=== PATIENT | female | born 1985 | race Caucasian/White ===

== ENCOUNTER 2019-08-31 11:47 | Outpatient (CLI) | payer OTHER, SELFPAY ==
[2019-08-31 12:37] LABS: Hematocrit 38.5 % (37.0-47.0); Hemoglobin 12.7 g/dL (12.0-15.0); Mean Corpuscular Hemoglobin 32.2 pg (26-34); Mean Corpuscular Volume 97.7 fl (80-100); Mean Platelet Volume 9.8 fl (7.4-10.4); Platelet Count Result 241 k/mm3 (150-375); Red Blood Count 3.94 M/mm3 (4.2-5.4); Red Cell Distribution Width 11.8 % (11.5-14.5); White Blood Count 6.7 K/mm3 (4.5-10.0)
[2019-08-31 12:48] LABS: Alanine Aminotransferase 12 U/L (4-35); Albumin Level 4.7 g/dL (3.5-5.1); Alkaline Phosphatase 59 U/L (38-126); Aspartate Amino Transferase 21 U/L (14-36); Bilirubin,Total 0.5 mg/dL (0.2-1.3); Blood Urea Nitrogen 10 mg/dL (7-17); Calcium 9.2 mg/dL (8.4-10.2); Carbon Dioxide 24 mmol/L (22-30); Chloride 106 mmol/L (98-107); Estimated Glomerular Filt Rate > 60; Glucose 85 mg/dL (65-105); Potassium 4.2 mmol/L (3.4-5.0); Sodium 139 mmol/L (137-145)
[2019-08-31 13:22] LABS: Thyroid Stimulating Hormone 0.617 uIU/mL (0.465-4.680); Total Triiodothyronine (T3) 1.59 NG/ML (0.97-1.69)
[2019-08-31 13:25] LABS: Free T4 Free Thyroxine 0.96 ng/mL (0.78-2.19)
== END 2019-08-31 11:48 | disposition home or self-care (01) ==
PROVIDERS: PCP Family Medicine Adolescent Medicine; Visit Provider Student in an Organized Health Care Education/Training Program
DX: R63.5 Abnormal weight gain (principal)
CPT/HCPCS: 36415; 80053; 84439; 84443; 84480; 85027

== ENCOUNTER → 2020-11-07 04:43 | Outpatient (CLI) | payer OTHER, SELFPAY ==
[2020-11-07 20:06] LABS: SARS-CoV-2 RNA PCR Negative
== END ==
PROVIDERS: PCP Family Medicine Adolescent Medicine; Visit Provider Student in an Organized Health Care Education/Training Program
DX: Z01.812 Encounter for preprocedural laboratory examination (principal); Z20.822 Contact with and (suspected) exposure to COVID-19
CPT/HCPCS: C9803; U0003; U0005

== ENCOUNTER 2020-11-10 02:19 | Day surgery (SDC) | payer OTHER, SELFPAY ==
[2020-10-30 16:01] VITALS: BMI 26.9
--- NOTE | 2020-11-09 08:55 | WPDANESEPPF ---
Anes - Initial Pre Proc Eval Procedure: Operation Date: 11/10/20 07:30 Proposed Procedures p Loop Electrical Excision Procedure - Joy Caba MD Date/Time: 11/09/20 08:55 Surgeon: Joy Caba MD Pre Op Diagnosis: high grade dyplasia Patient Data Age: 35 Gender: F Height: 1.8 m Weight: 87.7 kg Allergies Allergy/AdvReac Type Severity Reaction Status Date / Time Penicillins Allergy Severe swelling Verified 11/10/20 06:30 clindamycin Allergy Intermediate Swelling Verified 11/01/20 14:31 cefaclor Allergy Unknown Swelling Verified 11/01/20 14:31 cephalexin Allergy Unknown UNKNOWN Verified 11/01/20 14:31 tramadol AdvReac Severe Mirgraines Verified 11/01/20 14:31 Home Medications Medication Instructions Recorded Confirmed Type buspirone 15 mg PO BID 10/30/20 10/30/20 History Patient hx anesthesia problems: none Family hx anesthesia problems: none PMFSH Past Medical History Medical History (Updated 11/09/20 @ 16:21 by Joy Caba MD) Anxiety ROSEANN II (cervical intraepithelial neoplasia II) History of x2 Vaginal delivery x 2 Surgical History Surgical History H/O LEEP Social History Social History Smoking packs per day: 0.5 Smoking cigarettes per day: 10.0 Years smoked: 20 Smoking pack-years: 10.00 Smoking status: Current every day smoker Tobacco type: cigarettes Second hand tobacco smoke exposure: Yes Alcohol intake: current Drinks per week: 4 Substance use: current Substance use type: marijuana Living arrangements: with family Spiritual care concerns: No Anes - Eval Final PreProcedure Day of Procedure 11/09/20 08:55 Patient weight: overweight Heart: regular rate and rhythm Lungs: clear to auscultation and normal air movement Airway: Mallampati scale class II Neurological: alert and oriented Last oral intake: >/= 8 hours ASA classification: II Emergent: no Anesthetic plan: proceed Anesthesia type and monitoring: general GIVS Informed Consent: The patient's anesthetic plan and its attendant risks and benefits were discussed with the patient/family/POA. Questions were solicited and answers provided to the satisfaction of the patient/family/POA.
--- NOTE | 2020-11-09 16:13 | PM.IMHP ---
H&P: HPI History of Present Illness Date/Time: 11/09/20 16:13 The patient is a 35-year-old with an extensive history of abnormal Pap smears and colposcopic biopsies. Patient is status post a LEEP procedure in 2018. She has had persistently abnormal Pap smears since then most recently LGSIL. A colposcopy was performed showing ROSEANN 1 and ROSEANN 2 on biopsies. After lengthy discussion, decision was made to proceed with a re-excision via a loop electrosurgical excision procedure for further management of abnormal results. In general, patient reports feeling well today without complaints. Chief Complaint: ROSEANN 2 Review of Systems Review of Systems: All systems reviewed & are unremarkable except as noted in HPI and below Constitutional: Constitutional: Reports as per HPI, Reports no additional constitutional complaints, Denies chills, Denies fever(s), Denies headache(s) and Denies night sweats Eyes: Eyes: Reports as per HPI and Reports no additional eye complaints ENT: Reports system reviewed and no additional complaints, except as documented, Reports as per HPI, Reports Normal hearing present and Denies headache(s) Cardiovascular: Cardiovascular: Reports as per HPI, Reports no additional cardiovascular complaints, Denies chest pain and Denies dyspnea Respiratory: Respiratory: Reports as per HPI, Reports no additional respiratory complaints, Denies cough and Denies dyspnea Gastrointestinal: Gastrointestinal: Reports as per HPI, Reports no additional gastrointestinal complaints, Denies abdominal pain, Denies change in bowel habits, Denies change in stool character, Denies nausea and Denies vomiting Genitourinary: Genitourinary: Reports no additional female genitourinary complaints, Reports as per HPI, Denies abnormal vaginal bleeding, Denies genital lesions, Denies hot flashes, Denies dyspareunia, Denies pelvic pain, Denies sexual dysfunction, Denies urinary incontinence, Denies vaginal discharge, Denies vaginal dryness and Denies vaginal odor Musculoskeletal: Musculoskeletal: Reports no additional musculoskeletal complaints and Reports as per HPI Integumentary/Breasts: Skin/Breast: Reports system reviewed and no additional complaints, except as docu, Reports as per HPI, Denies breast pain and Denies nipple discharge Neurologic: Reports system reviewed and no additional complaints, except as documented, Reports as per HPI, Reports Normal hearing present and Denies headache(s) Psychiatric: Psychiatric: Reports no additional psychiatric complaints, Reports as per HPI, Denies anxiety and Denies depression Endocrine: Endocrine: Reports no additional endocrine complaints and Reports as per HPI Hematologic/Lymphatic: Hematologic/Lymphatic: Reports no additional hematologic/lymphatic complaints and Reports as per HPI Allergic/Immunologic: Allergic/Immunologic: Reports no additional allergic/immunologic complaints and Reports as per HPI [facility] Past Medical History Medical History (Updated 11/09/20 @ 16:21 by Joy Caba MD) Anxiety ROSEANN II (cervical intraepithelial neoplasia II) History of x2 Vaginal delivery x 2 Surgical History Surgical History H/O LEEP Social History Social History Smoking packs per day: 0.5 Smoking cigarettes per day: 10.0 Years smoked: 20 Smoking pack-years: 10.00 Smoking status: Current every day smoker Tobacco type: cigarettes Second hand tobacco smoke exposure: Yes Alcohol intake: current Drinks per week: 4 Substance use: current Substance use type: marijuana Spiritual care concerns: No Meds Home Medications and Allergies Home Medications Medication Instructions Recorded Confirmed Type buspirone 15 mg PO BID 10/30/20 10/30/20 History Allergies Allergy/AdvReac Type Severity Reaction Status Date / Time Penicillins Allergy Severe swelling Verified 10/21
[2020-11-10 07:12] VITALS: BP 130/83; PULSE 91; TEMP 36.6; O2SAT 98
[2020-11-10] MEDS: LACTATED RINGERS 1,000 ML 30 ML IV CONT (07:16)
[2020-11-10] MEDS: ACETAMINOPHEN 500 MG TABLET 1000 MG PO (07:17)
--- NOTE | 2020-11-10 07:19 | WPDHPUPDATE1 ---
History and Physical Update Update Date/Time: 11/10/20 07:19 History and Physical has been reviewed, including an updated exam of the patient. There are NO changes in the patient's condition. Risks, benefits, and alternatives have been discussed and questions answered. Patient agrees to proceed with procedure.
--- NOTE | 2020-11-10 07:21 | PM.PROC ---
Procedure Note - Detailed Date of procedure: 11/10/20 Pre-op diagnosis: high grade dyplasia Post-op diagnosis: same Procedure performed: Loop electrosurgical excision procedure Description of procedure: The patient was taken to the operating room where she self-transferred to the operating room table. She was placed in dorsal supine position. Anesthesia was administered and found to be adequate. The patient was repositioned in dorsal lithotomy position and prepped and draped in the usual sterile fashion. A red rubber catheter was used to drain the bladder of 5cc of concentrated urine. A coated bivalve speculum was inserted into the vagina and suction tubing was connected to the speculum. The cervix was well visualized. A paracervical block was performed with 1% lidocaine. 5 cc of lidocaine was administered on both sides for a total of 10 cc. Lugol's solution was applied across the entire surface of the cervix. A few minimal areas of non-uptake were noted scattered around the cervix. A medium-size loop was selected and connected to the electrical generator. This loop was used to make two passes across the cervix, The first pass was made to excise the inferior portion of the anterior surface of the cervix. The specimen was removed and set aside. A second pass was made to excise the superior portion of the anterior surface of the cervix and this specimen was also set aside. The specimen were tagged with a suture. An endocervical curettage was performed. Rollerball cautery was used to cauterize the entire excision site and margins of the excision bed. Excellent hemostasis was noted. The procedure was deemed complete. The vagina was dried and the speculum was removed. Specimen were prepared to be sent to pathology for analysis. The patient was cleansed and dried. She was taken out of the dorsal lithotomy position and awakened from anesthesia without difficulty. She was transported to the recovery room in stable condition. All sponge and instrument counts were correct at the end of the procedure. Anesthesia: MAC Surgeon: Joy Caba MD Estimated blood loss (mL): 5 IV fluids (mL): 500 Urine output (mL): 5 Drains: No Packing: No Pathology: yes (anterior portion of cervix (superior) tagged at 12:00, os at 6:00; anterior portion of cervix (inferior) tagged at 6:00, os at 12:00) Complications: No immediate complications Condition: stable Disposition: same day Findings: scattered areas of non-uptake noted around cervix circumferentially
[2020-11-10 07:59] VITALS: BP 111/71; PULSE 69; RESP 14; O2SAT 98
[2020-11-10 08:25] VITALS: BP 114/67; PULSE 70; RESP 14; O2SAT 100
[2020-11-10 08:50] VITALS: BP 128/77; PULSE 72; RESP 14
[2020-11-10] MEDS: oxyCODONE HCL (*CRX) 5 MG TAB IR PO (08:50)
[2020-11-10 09:10] VITALS: BP 132/83; PULSE 80; RESP 14
== END 2020-11-10 09:19 | disposition home or self-care (01) ==
PROVIDERS: PCP Family Medicine Adolescent Medicine; Visit Provider Student in an Organized Health Care Education/Training Program
PROC: 0UBC7ZZ Excision of Cervix, Via Natural or Artificial Opening (ICD-10-PCS; CPT 57522; principal; 2020-11-10 07:30)
DX: N72 Inflammatory disease of cervix uteri (principal); F41.9 Anxiety disorder, unspecified; F17.210 Nicotine dependence, cigarettes, uncomplicated
CPT/HCPCS: 57522; 88305; A9270; C9803; J1100; J1885; J2250; J2405; J2704; J3010; J7120; U0003; U0005

== ENCOUNTER 2020-11-22 21:42 | Emergency (ER) | payer OTHER, SELFPAY ==
[2020-11-22 21:44] VITALS: BP 120/89; PULSE 130; RESP 18; TEMP 36.6; O2SAT 99
--- NOTE | 2020-11-22 21:47 | PC.NURSE ---
Note during triage pt states felt lightheaded, states I'm gonna be sick , pt became diaphoretic, pale, and unresponsive. Pt snoring respirations, that ceased with opening airway. Pt remained in wheelchair and became alert enroute to room 10 and was responsive on arrival to Rm 10. Pt c/o hands and feet feeling numb . Encouraged pt to attempt to slow breathing. 2 IV's being established.
[2020-11-22 21:56] VITALS: BP 110/81; PULSE 120; RESP 17; O2SAT 100
[2020-11-22 22:00] VITALS: BP 115/86; PULSE 116; RESP 18; O2SAT 99
--- NOTE | 2020-11-22 22:15 | ECG_ITS ---
Measurements Intervals [place] Rate: 95 P: 57 OR: 163 QRS: 67 QRSD: 101 T: 52 QT: 356 QTc: 449 Interpretive Statements SINUS RHYTHM BASELINE ARTIFACT- I, II, III, AVR, AVF, V3-V6 NORMAL ECG Electronically Signed On 11-23-2020 6:02:15 CDT by Adolfo Mccoy D.O.
[2020-11-22] MEDS: SODIUM CHLORIDE 0.9% IV 1,000 ML 999 ML IV CONT (22:16)
[2020-11-22 22:21] LABS: Basophils Absolute Auto 0.1 K/mm3 (0.0-0.1); Basophils Percent Auto 0.6 % (0.2-1.2); Eosinophils Absolute Auto 0.1 K/mm3 (0-0.3); Hemoglobin 12.5 g/dL (12.0-15.0); Immature Granulocyte Absolute 0.05 K/mm3 (0.00-0.031); Immature Granulocyte Percent A 0.4 % (0-0.5); Lymphocytes Absolute Auto 5.28 K/mm3 (0.9-3.2); Lymphocytes Percent Auto 45.8 % (18.3-44.2); Mean Corpuscular HGB Conc 35.7 g/dl (32-36); Mean Platelet Volume 9.6 fl (7.4-10.4); Monocytes Absolute Auto 0.8 K/mm3 (0.1-0.6); Monocytes Percent Auto 7.2 % (2.6-8.5); Neutrophils Absolute Auto 5.2 K/mm3 (1.3-6.7); Platelet Count Result 251 k/mm3 (150-375); Red Blood Count 3.57 M/mm3 (4.2-5.4); White Blood Count 11.5 K/mm3 (4.5-10.0)
--- NOTE | 2020-11-22 22:26 | ED.FEMALEGU ---
HPI - Female Genitourinary General Chief complaint: Vaginal Bleeding Stated complaint: vag bleed Time Seen by Provider: 11/22/20 22:02 Source: patient and RN notes reviewed Mode of arrival: ambulatory Limitations: no limitations History of Present Illness HPI Narrative: This is a 35 year old female who presents for evaluation of heavy vaginal bleeding. She states she had a LEEP procedure performed with biopsies on 11/10/20. She has only been having mild spotting since her procedure. Approximately 2 hours ago she developed heavy vaginal bleeding with large clots. She has been trying to stop the bleeding with a tampon, but the heavy bleeding pushed the tampon out. She denies abdominal pain or cramping. She is lightheaded and dizzy. Nursing staff states patient passed out in triage. Patient denies chest pain or sob. Related Data Home Medications Medication Instructions Recorded Confirmed buspirone 15 mg PO BID 10/30/20 10/30/20 Allergies Allergy/AdvReac Type Severity Reaction Status Date / Time Penicillins Allergy Severe swelling Verified 11/10/20 06:30 clindamycin Allergy Intermediate Swelling Verified 11/01/20 14:31 cefaclor Allergy Unknown Swelling Verified 11/01/20 14:31 cephalexin Allergy Unknown UNKNOWN Verified 11/01/20 14:31 tramadol AdvReac Severe Mirgraines Verified 11/01/20 14:31 Review of Systems Review of Systems: All systems reviewed & are unremarkable except as noted in HPI and below PMFSH Past Medical History Medical History (Updated 11/23/20 @ 01:07 by Lisa Gardner MD) Anxiety ROSEANN II (cervical intraepithelial neoplasia II) History of x2 Vaginal delivery x 2 Surgical History Surgical History H/O LEEP Social History Social History Smoking packs per day: 0.5 Smoking cigarettes per day: 10.0 Years smoked: 20 Smoking pack-years: 10.00 Smoking status: Current every day smoker Tobacco type: cigarettes Second hand tobacco smoke exposure: Yes Alcohol intake: current Drinks per week: 4 Substance use: current Substance use type: marijuana Gender identity (if verbalized by the patient): Female Spiritual care concerns: No Exam Const: General: no acute distress and alert Orientation/consciousness: patient oriented x3 HENMT: Head: normocephalic and atraumatic Face and sinus: face symmetric Throat: posterior oropharynx normal, tonsils normal and uvula midline Eyes: Pupils: Equal, round and reactive pupils present EOM: EOMs intact bilaterally Resp: Effort & Inspection: normal respiratory effort and no retractions Auscultation: clear to auscultation bilaterally Cardio: Rate: tachycardic Rhythm: regular rhythm Heart sounds: no murmurs GI: GI Palp: Yes Soft to palpation, No Tenderness to palpation present (GI) and No Guarding due to palpation present (GI) Auscultation: normal bowel sounds : Speculum Exam - Cervix: Cervical os closed Other: large amount of clots in vagina, once I cleared clots, no active bleeding noted Skin: General skin exam: normal color Rashes: no rashes Neuro: General: patient oriented x3, moves all extremities, no meningeal signs and CN's II-XI intact bilaterally Extrem: General: normal to inspection Psych: Mental Status: mental status grossly normal Course Reevaluation(s) Reevaluation #1: On repeat exam patient in no longer having vaginal bleeding. She will be sent home to follow up with Dr. laboy today. Date: 11/23/20 Time: 01:03 Consultations Consultation #1: I discussed case with DR. Laboy. Patient had large amount of clots but no active bleeding noted once removal of clot. She states patient is reliable and she will follow up in clinic tomorrow. Date: 11/23/20 Time: 23:27 Vital Signs Vital signs: Vital Signs Temperature 97.8 F 11/22/20 21:44 Pulse Rate 130 H 11/22/20 21:44 Respirat
[2020-11-22 22:31] LABS: Alanine Aminotransferase 33 U/L (4-35); Albumin Level 4.2 g/dL (3.5-5.1); Alkaline Phosphatase 60 U/L (38-126); Anion Gap 15 mmol/L (8-16); Aspartate Amino Transferase 60 U/L (14-36); Bilirubin,Total 0.4 mg/dL (0.2-1.3); Blood Urea Nitrogen 11 mg/dL (7-17); Calcium 9.1 mg/dL (8.4-10.2); Carbon Dioxide 17 mmol/L (22-30); Chloride 110 mmol/L (98-107); Estimated CRCL calculation 100 ml/min; Estimated Glomerular Filt Rate > 60; Glucose 114 mg/dL (65-105); Potassium 3.3 mmol/L (3.4-5.0); Sodium 142 mmol/L (137-145)
[2020-11-22 22:48] LABS: Beta HCG Quantitative < 2.39 mIU/ML
[2020-11-22 22:49] LABS: Prothrombin Time 13.9 Seconds (11.1-14.7)
[2020-11-22 22:50] LABS: Partial Thromboplastin Time 22.9 SECONDS (22.3-36.8)
[2020-11-22 23:16] LABS: Alveolar/Arterial O2 Gradient 17.7 mmHg; Base Excess ABG -4.2 mEq/l (+/-2.0); Carboxyhemoglobin 1.2 % THb (0-2.0); Device ROOM AIR; Fractional Inspired Oxygen 21 %; HCO3 ABG 19.4 mEq/l (22.0-26.0); Methemoglobin ABG 0.2 %THb (0-1.5); Modified Allen's Test Pass; Oxygen Content ABG 15.9 %vol (16.0-22.0); Oxygen Saturation ABG 97.5 % (95.0-100.0); PCO2 ABG 30.8 mmHg (35.0-45.0); PO2 ABG 95.1 mmHg (80.0-100.0); PO2 FiO2 Ratio Arterial Blood 4.53 %; Reduced Hemoglobin 3.6 %THb (0-5.0); Site Drawn RIGHT BRACHIAL; Total Hemoglobin 11.8 g/dL (12.0-18.0); pH ABG 7.417 (7.350-7.450)
[2020-11-22 23:29] VITALS: BP 133/85; PULSE 107
[2020-11-22 23:30] VITALS: BP 119/87; BP 129/92; PULSE 115; PULSE 130
[2020-11-22 23:39] LABS: Lactic Acid Reflex 3.2 mmol/L (0.7-2.1)
[2020-11-23] VITALS: BP 124/96; PULSE 95; RESP 17; O2SAT 100
[2020-11-23] MEDS: SODIUM CHLORIDE 0.9% IV 1,000 ML 999 ML IV CONT (00:25)
[2020-11-23 01:00] VITALS: BP 136/82; PULSE 95; RESP 18; O2SAT 99
[2020-11-23 02:24] LABS: Reflex Lactic Acid Yes or No Add Lactic
== END 2020-11-23 01:26 | disposition home or self-care (01) ==
PROVIDERS: Emergency Provider General Practice; PCP Family Medicine Adolescent Medicine
DX: N93.9 Abnormal uterine and vaginal bleeding, unspecified (principal); F41.9 Anxiety disorder, unspecified; N87.1 Moderate cervical dysplasia; F17.210 Nicotine dependence, cigarettes, uncomplicated
CPT/HCPCS: 36415; 36600; 80053; 82375; 82805; 83050; 83605; 84702; 85025; 85610; 85730; 93005; 96360; 96361; 99284; J7030

== ENCOUNTER 2021-01-06 14:23 | Emergency (ER) | payer OTHER, SELFPAY ==
[2021-01-06] VITALS (7 sets, daily range): BP systolic 110–158; BP diastolic 88–112; PULSE 88–135; RESP 14–20; TEMP 37; O2SAT 97–100
--- NOTE | 2021-01-06 14:54 | ED.NAVMDI ---
HPI - Nausea/Vomiting/Diarrhea General Chief complaint: Nausea/Vomiting/Diarrhea Stated complaint: dehydrated Time Seen by Provider: 01/06/21 14:34 Source: patient and RN notes reviewed Mode of arrival: ambulatory Limitations: no limitations History of Present Illness HPI Narrative: This is a 35 year old female with history of alcohol abuse who presents for evaluation nausea, vomiting and diarrhea. Patient reports she normally drinks 1 fifth of whiskey per day and she normally doesn't drink anything else. She developed nausea and vomiting 2 days ago, and she reports having diarrhea today. She reports nonbloody emesis, but she reports she sees bright red blood in toilet. This has been occurring for weeks, and she reports history of hemorrhoids. She has intermittent lower abdominal cramping. She went to [facility] for evaluation of dehydration and she was referred to [place] ED. She denies fever or chills. Her LMP was yesterday. She last drank alcohol yesterday. She reports alcohol symptoms such as increase anxiety, shakiness. Denies headache or hallucinations. Related Data Home Medications Medication Instructions Recorded Confirmed buspirone 15 mg PO BID 10/30/20 01/06/21 etonogestrel 0.12 mg-ethinyl 1 vag ring VAGINAL ONCE 12/12/20 01/06/21 estradiol 0.015 mg/24 hr vaginal ring Allergies Allergy/AdvReac Type Severity Reaction Status Date / Time Penicillins Allergy Severe swelling Verified 01/06/21 14:29 clindamycin Allergy Intermediate Swelling Verified 01/06/21 14:29 cefaclor Allergy Unknown Swelling Verified 01/06/21 14:29 cephalexin Allergy Unknown UNKNOWN Verified 01/06/21 14:29 tramadol AdvReac Severe Mirgraines Verified 01/06/21 14:29 Review of Systems Review of Systems: All systems reviewed & are unremarkable except as noted in HPI and below PMFSH Past Medical History Medical History Anxiety ROSEANN II (cervical intraepithelial neoplasia II) History of x2 Vaginal delivery x 2 Surgical History Surgical History H/O LEEP Social History Social History Smoking packs per day: 0.5 Smoking cigarettes per day: 10.0 Years smoked: 20 Smoking pack-years: 10.00 Smoking status: Current every day smoker Tobacco type: cigarettes Second hand tobacco smoke exposure: Yes Alcohol intake: current Drinks per week: 4 Substance use: current Substance use type: marijuana Gender identity (if verbalized by the patient): Female Spiritual care concerns: No Exam Const: General: no acute distress and alert Orientation/consciousness: patient oriented x3 Eyes: EOM: EOMs intact bilaterally Resp: Effort & Inspection: normal respiratory effort and no retractions Auscultation: clear to auscultation bilaterally Cardio: Rate: tachycardic Rhythm: regular rhythm Heart sounds: no murmurs GI: GI Palp: Yes Soft to palpation, Yes Tenderness to palpation present (GI) (LLQ) and No Guarding due to palpation present (GI) Auscultation: normal bowel sounds : Speculum Exam - Cervix: normal appearance of the cervix and Cervical os closed Other: nuvaring in place, mucous discharge, no CMT Back/Spine/Pelvis: Back: no CVA tenderness Skin: General skin exam: normal color Rashes: no rashes Psych: Affect: Anxious affect present Course Reevaluation(s) Reevaluation #1: PAtient states she feels much better. She has minimal withdrawal symptoms. she has been able to tolerate PO. I discussed discharge treatment and she will be given resource for alcohol treatment. she will also be given antibiotics for UTI. Date: 01/06/21 Time: 18:12 Vital Signs Vital signs: Vital Signs Temperature 98.6 F 01/06/21 14:26 Pulse Rate 115 H 01/06/21 14:26 Respiratory Rate 16 01/06/21 14:26 Blood Pressure 158/112 H 01/06/21 14
[2021-01-06] MEDS: SODIUM CHLORIDE 0.9% IV 1,000 ML 999 ML IV CONT ×2 (14:58→16:46)
[2021-01-06 14:59] LABS: Basophils Percent Auto 0.5 % (0.2-1.2); Eosinophils Absolute Auto 0.1 K/mm3 (0-0.3); Eosinophils Percent Auto 0.9 % (0-4.4); Hematocrit 38.1 % (37.0-47.0); Hemoglobin 12.4 g/dL (12.0-15.0); Immature Granulocyte Absolute 0.03 K/mm3 (0.00-0.031); Immature Granulocyte Percent A 0.4 % (0-0.5); Lymphocytes Absolute Auto 1.05 K/mm3 (0.9-3.2); Lymphocytes Percent Auto 13.1 % (18.3-44.2); Mean Corpuscular HGB Conc 32.5 g/dl (32-36); Mean Corpuscular Hemoglobin 31.9 pg (26-34); Mean Corpuscular Volume 97.9 fl (80-100); Mean Platelet Volume 9.7 fl (7.4-10.4); Monocytes Absolute Auto 0.4 K/mm3 (0.1-0.6); Monocytes Percent Auto 5.5 % (2.6-8.5); Neutrophils Absolute Auto 6.4 K/mm3 (1.3-6.7); Neutrophils Percent Auto 79.6 % (45.5-73.1); Platelet Count Result 189 k/mm3 (150-375); Red Blood Count 3.89 M/mm3 (4.2-5.4); Red Cell Distribution Width 14.3 % (11.5-14.5)
[2021-01-06] MEDS: ONDANSETRON INJ 4 MG/2 ML VIAL IV PUSH (14:59)
--- NOTE | 2021-01-06 15:03 | PC.NURSE ---
Called lab and added-on an MG
--- NOTE | 2021-01-06 15:04 | ECG_ITS ---
Measurements Intervals [place] Rate: 87 P: 37 DC: 178 QRS: 55 QRSD: 106 T: 40 QT: 351 QTc: 423 Interpretive Statements SINUS RHYTHM ATRIAL AND VENTRICULAR PREMATURE COMPLEXES INCOMPLETE RIGHT BUNDLE BRANCH BLOCK BASELINE WANDER- II, III BORDERLINE ECG Electronically Signed On 01-06-2021 16:05:23 CDT by Adolfo Mccoy D.O.
[2021-01-06 15:12] LABS: Add Urine Microscopic? YES; Appearance Urine Cloudy (Clear); Bilirubin Urine Negative (Negative); Blood Urine 2+ (Negative); Color Urine Amber (Yellow); Glucose Urine UA Negative (Negative); Ketones Urine Negative (Negative); Leukocyte Esterase Ur 2+ LEU/UL (Negative); Mucus Urine Heavy /lpf; Nitrate Urine Negative (Negative); Protein Urine 2+ mg/dL (Negative); Specific Grav Ur 1.024 (1.001-1.035); Squamous Epithelial Cell Urine Many /hpf (Few); Urobilinogen Urine Negative mg/dL (<2.0); WBC Urine >75 /hpf
[2021-01-06 15:16] LABS: Alanine Aminotransferase 52 U/L (4-35); Albumin Level 4.9 g/dL (3.5-5.1); Alkaline Phosphatase 70 U/L (38-126); Anion Gap 15 mmol/L (8-16); Aspartate Amino Transferase 126 U/L (14-36); Bilirubin,Total 0.8 mg/dL (0.2-1.3); Blood Urea Nitrogen 10 mg/dL (7-17); Calcium 9.4 mg/dL (8.4-10.2); Carbon Dioxide 21 mmol/L (22-30); Chloride 105 mmol/L (98-107); Estimated CRCL calculation 87 ml/min; Estimated Glomerular Filt Rate > 60; Glucose 122 mg/dL (65-110); Lipase 114 U/L (23-300); Magnesium 1.7 mg/dL (1.6-2.3); Potassium 3.7 mmol/L (3.4-5.0); Sodium 141 mmol/L (137-145)
[2021-01-06] MEDS: LORazepam INJ (*CRX) 2 MG/ML VIAL IV PUSH (15:24)
[2021-01-06] MEDS: THIAMINE HCL INJ 100 MG, FOLIC ACID INJ 1 MG, MULTIVITAMINS-12 INJ VIAL 1 5 ML, MULTIVI... IV CONT (15:37)
== END 2021-01-06 18:35 | disposition home or self-care (01) ==
PROVIDERS: Emergency Medicine; Emergency Provider General Practice; PCP Family Medicine Adolescent Medicine
DX: F10.139 Alcohol abuse with withdrawal, unspecified (principal); N39.0 Urinary tract infection, site not specified; E86.0 Dehydration; R11.2 Nausea with vomiting, unspecified; F41.9 Anxiety disorder, unspecified; N87.1 Moderate cervical dysplasia; F17.210 Nicotine dependence, cigarettes, uncomplicated; I49.1 Atrial premature depolarization; I49.3 Ventricular premature depolarization; I45.10 Unspecified right bundle-branch block; Y90.9 Presence of alcohol in blood, level not specified
CPT/HCPCS: 36415; 80053; 81001; 81025; 83690; 83735; 85025; 87070; 87077; 87086; 87088; 87186; 87491; 87591; 87808; 93005; 96361; 96365; 96366; 96375; 99284; J2060; J2405; J3411; J3475; J7030; J7042

== ENCOUNTER → 2021-01-12 06:59 | Outpatient (CLI) | payer OTHER, SELFPAY ==
[2021-01-12 17:52] LABS: SARS-CoV-2 RNA PCR Negative
== END ==
PROVIDERS: PCP Family Medicine Adolescent Medicine; Visit Provider Family Medicine Adolescent Medicine
DX: R05 Cough (principal); R09.81 Nasal congestion; Z20.822 Contact with and (suspected) exposure to COVID-19
CPT/HCPCS: C9803; U0003; U0005

== ENCOUNTER → 2021-01-19 09:04 | Outpatient (CLI) | payer OTHER, SELFPAY ==
[2021-01-19 18:53] LABS: SARS-CoV-2 RNA PCR Negative
== END ==
PROVIDERS: PCP Family Medicine Adolescent Medicine; Visit Provider Family Medicine Adolescent Medicine
DX: Z20.822 Contact with and (suspected) exposure to COVID-19 (principal)
CPT/HCPCS: C9803; U0003; U0005

== ENCOUNTER 2021-04-23 22:31 | Emergency (ER) | payer OTHER, SELFPAY ==
--- NOTE | ~2021-04-23 | XR_ITS ---
XR chest 2V DATE: 04/23/2021 22:56 INDICATION: Sternal chest pain for 4 hours. TECHNIQUE: PA and lateral views COMPARISON: 10/24/2010 PA chest FINDINGS: Normal heart size. No hilar or mediastinal enlargement. No pulmonary infiltrate or consolid ation, pleural effusion or pulmonary vascular congestion or pneumothorax. IMPRESSION: No active cardiopulmonary disease Reviewed, dictated and finalized at location A.
--- NOTE | ~2021-04-23 | CT_ITS ---
EXAMINATION: CTA chest PE protocol DATE: 04/24/2021 00:47 INDICATION: Elevated d-dimer. Tachycardia. TECHNIQUE: Computed tomography (CT) pulmonary angiogram of the chest was performed with 100 mL Omnipa que-350 intravenous contrast. Additional 3D reconstructions utilizing coronal maximum intensity proje ction (MIP) were performed. Automated exposure control and iterative reconstruction technique were em ployed. The dose-length product was 421.96 mGy-cm. COMPARISON: None FINDINGS: Good contrast opacification of the pulmonary arteries. There is mild streak artifact from dense contr ast in the superior vena cava and right atrium. Mild scattered respiratory motion artifact which does not significantly limit evaluation. No pulmonary embolism. Mosaic attenuation in the dependent aspec t of the lower lobes with groundglass opacities related to atelectasis with more lucent regions of campbell bsegmental air trapping consistent with small airway disease. Calcified right lower lobe nodule consi stent with old granulomatous disease. Groundglass opacities at the inferior tip of the lingula. No pl eural effusion. Heart size is normal. No pericardial effusion. Thoracic aorta is normal in caliber wi th no dissection. No pathologically enlarged thoracic lymphadenopathy. Mild diffuse hepatic steatosis with more focal steatosis at the ligamentum teres. Adjacent 6 mm low-attenuation hepatic lesion whic h could represent hemangioma, cyst or additional focal fat. Splenomegaly measuring at least 15 cm in maximal length. Bones are unremarkable. IMPRESSION: 1. No pulmonary embolism. 2. Small region of groundglass opacity in the inferior tip of the lingula. Differential would include atelectasis, very small pulmonary infarct or pneumonia. 3. Small regions of subsegmental air trapping in the dependent lower lobes consistent with small airw ay disease. 4. Nonspecific splenomegaly. Reviewed, dictated and finalized at location A. IMPRESSION: 1. No pulmonary embolism. 2. Small region of groundglass opacity in the inferior tip of the lingula. Diff erential would include atelectasis, very small pulmonary infarct or pneumonia. 3. Small regions of subsegmental air trapping in the dependent lower lobes cons istent with small airway disease. 4. Nonspecific splenomegaly.
--- NOTE | 2021-04-23 22:33 | ECG_ITS ---
Measurements Intervals [place] Rate: 116 P: MA: 0 QRS: 47 QRSD: 90 T: 37 QT: 319 QTc: 444 Interpretive Statements SINUS TACHYCARDIA INCOMPLETE RIGHT BUNDLE BRANCH BLOCK ABNORMAL ECG Electronically Signed On 04-24-2021 6:14:35 CDT by Adolfo Mccoy D.O.
[2021-04-23 22:37] VITALS: BP 145/99; PULSE 114; RESP 18; TEMP 36.6; O2SAT 98
--- NOTE | 2021-04-23 23:05 | PC.NURSE ---
Called lab and spoke to Dee to add on D-Dimer, MG, Lip, CMP
[2021-04-23 23:12] LABS: Basophils Absolute Auto 0.1 K/mm3 (0.0-0.1); Basophils Percent Auto 0.5 % (0.2-1.2); Eosinophils Percent Auto 0.3 % (0-4.4); Hematocrit 30.8 % (37.0-47.0); Immature Granulocyte Absolute 0.03 K/mm3 (0.00-0.031); Immature Granulocyte Percent A 0.3 % (0-0.5); Lymphocytes Absolute Auto 6.79 K/mm3 (0.9-3.2); Lymphocytes Percent Auto 70.1 % (18.3-44.2); Mean Corpuscular HGB Conc 32.5 g/dl (32-36); Mean Corpuscular Hemoglobin 31.2 pg (26-34); Mean Platelet Volume 8.7 fl (7.4-10.4); Monocytes Absolute Auto 0.6 K/mm3 (0.1-0.6); Monocytes Percent Auto 5.9 % (2.6-8.5); Neutrophils Absolute Auto 2.2 K/mm3 (1.3-6.7); Neutrophils Percent Auto 22.9 % (45.5-73.1); Platelet Count Result 218 k/mm3 (150-375); Red Blood Count 3.21 M/mm3 (4.2-5.4); Red Cell Distribution Width 21.7 % (11.5-14.5); White Blood Count 9.7 K/mm3 (4.5-10.0)
[2021-04-23 23:21] LABS: INR 0.9; Prothrombin Time 12.4 Seconds (11.1-14.7)
[2021-04-23 23:22] LABS: Partial Thromboplastin Time 29.1 SECONDS (22.3-36.8)
[2021-04-23 23:24] LABS: D Dimer 2.86 ug/mL (<0.48)
[2021-04-23 23:26] LABS: Alanine Aminotransferase 81 U/L (4-35); Albumin Level 3.6 g/dL (3.5-5.1); Alkaline Phosphatase 85 U/L (38-126); Anion Gap 10 mmol/L (8-16); Aspartate Amino Transferase 134 U/L (14-36); Bilirubin,Total 0.4 mg/dL (0.2-1.3); Blood Urea Nitrogen 9 mg/dL (7-17); Calcium 8.6 mg/dL (8.4-10.2); Carbon Dioxide 32 mmol/L (22-30); Chloride 100 mmol/L (98-107); Estimated CRCL calculation 131 ml/min; Estimated Glomerular Filt Rate > 60; Glucose 97 mg/dL (65-110); Lipase 175 U/L (23-300); Magnesium 1.7 mg/dL (1.6-2.3); Potassium 3.6 mmol/L (3.4-5.0); Sodium 142 mmol/L (137-145)
[2021-04-23] MEDS: FAMOTIDINE 20 MG/2 ML VIAL IV PUSH (23:30)
[2021-04-23] MEDS: SODIUM CHLORIDE 0.9% IV 1,000 ML 999 ML IV CONT (23:32)
--- NOTE | 2021-04-23 23:36 | PC.NURSE ---
Called lab and spoke to Heather to add on TSH Reflex
[2021-04-23 23:37] LABS: Troponin I < 0.012 ng/mL (0.000-0.034)
--- NOTE | 2021-04-24 00:15 | ED.CHESTPAIN ---
HPI - Chest Pain General Chief Complaint: Chest Pain Stated Complaint: chest pain x 4 hrs Time Seen by Provider: 04/23/21 22:57 Source: patient Mode of arrival: ambulatory History of Present Illness HPI narrative: 35-year-old female with history of panic attacks complaining of chest pain for the last 4 hours. Chest pain is located across the chest, described as a tightness. No wheezing, no productive cough, no pleuritic pain. Pain worse with exertion, improves with nothing. No previous history of same. No leg swelling, no unilateral calf swelling, no recent surgeries, no recent travel. Patient states chest pain starts anterior and radiates towards the back constant, sharp. On arrival patient is afebrile and tachycardic. Related Data Home Medications Medication Instructions Recorded Confirmed buspirone 15 mg PO BID 10/30/20 01/06/21 etonogestrel 0.12 mg-ethinyl 1 vag ring VAGINAL ONCE 12/12/20 01/06/21 estradiol 0.015 mg/24 hr vaginal ring Allergies Allergy/AdvReac Type Severity Reaction Status Date / Time Penicillins Allergy Severe swelling Verified 04/23/21 23:12 clindamycin Allergy Intermediate Swelling Verified 04/23/21 23:12 cefaclor Allergy Unknown Swelling Verified 04/23/21 23:12 cephalexin Allergy Unknown UNKNOWN Verified 04/23/21 23:12 tramadol AdvReac Severe Mirgraines Verified 04/23/21 23:12 Review of Systems Review of Systems: CONSTITUTIONAL: no fever, no weight loss, no confusion EYES: no vision changes, no eye pain ENT: no rhinorrhea, no sore throat, no difficulty swallowing CARDIOVASCULAR: positive for chest pain, no leg edema, positive for palpitations RESPIRATORY: no cough, positive for shortness of breath, no hemoptysis GASTROINTESTINAL: no abdominal pain, positive for nausea, no vomiting, no diarrhea GENITOURINARY: no flank pain, no dysuria, no hematuria SKIN: no rash, no jaundice MUSCULOSKELETAL: no back pain, no trauma. NEUROLOGIC: No headache, no dizziness, no focal weakness PSYCHIATRIC: No hallucinations, no suicidal ideation [facility] Past Medical History Medical History (Updated 04/25/21 @ 00:00 by Jean Carlos Gilbert) Anxiety ROSEANN II (cervical intraepithelial neoplasia II) History of x2 Vaginal delivery x 2 Surgical History Surgical History H/O LEEP Social History Social History Smoking packs per day: 0.5 Smoking cigarettes per day: 10.0 Years smoked: 20 Smoking pack-years: 10.00 Smoking status: Current every day smoker Tobacco type: cigarettes Second hand tobacco smoke exposure: Yes Alcohol intake: current Drinks per week: 4 Substance use: current Substance use type: marijuana Gender identity (if verbalized by the patient): Female Spiritual care concerns: No Exam Narrative: General: alert, afebrile, answering all questions appropriately Head: normocephalic, atraumatic Eyes: EOMI bilaterally, anicteric, no injection ENT: moist mucous membranes, oropharynx patent, no rhinorrhea Neck: supple, trachea midline, no JVD Chest: equal chest rise bilaterally, no chest wall trauma noted Lungs: clear to auscultation bilaterally, respirations unlabored CV: tachycadia, regular, no KHAI B, calf size equal bilaterally Abd: soft, non-distended, non-tender, no rebound, no gaurding, negative Fitzgerald's : no CVA tenderness B, bladder non-distended EXT: no deformity noted, moving all extremities equally Skin: warm, dry, no pallor Neuro: alert, oriented x 3; CN 2-12 grossly intact, no dysarthria Psych: affect appropriate, though content normal Course Vital Signs Vital signs: Vital Signs Temperature 36.6 C 04/23/21 22:37 Pulse Rate 114 H 04/23/21 22:37 Respiratory Rate 18 04/23/21 22:37 Blood Pressure 145/99 H 04/23/21 22:37 Pulse Oximetry 98 04/23/21 22:37 Temperature 36.6 C 04/23/21 22:37 Pulse Rate 94
[2021-04-24] MEDS: diazePAM INJ (*CRX) 10 MG/2 ML SYRINGE IV PUSH ×2 (01:51→02:25)
[2021-04-24 02:30] VITALS: BP 130/91; PULSE 94; RESP 20; O2SAT 98
== END 2021-04-24 02:40 | disposition home or self-care (01) ==
PROVIDERS: Emergency Provider Emergency Medicine; PCP Family Medicine Adolescent Medicine
DX: J84.9 Interstitial pulmonary disease, unspecified (principal); F41.9 Anxiety disorder, unspecified; R00.0 Tachycardia, unspecified; F10.230 Alcohol dependence with withdrawal, uncomplicated; F17.210 Nicotine dependence, cigarettes, uncomplicated; N87.1 Moderate cervical dysplasia; R16.1 Splenomegaly, not elsewhere classified; Y90.9 Presence of alcohol in blood, level not specified
CPT/HCPCS: 36415; 71046; 71275; 80053; 81025; 83690; 83735; 84443; 84484; 85025; 85380; 85610; 85730; 93005; 96361; 96374; 96376; 99284; J3360; J7030; Q9967

== ENCOUNTER 2021-05-03 15:26 | Emergency (ER) | payer OTHER, SELFPAY ==
--- NOTE | ~2021-05-03 | CT_ITS ---
EXAMINATION: CTA chest PE protocol EXAM DATE: 05/03/2021 19:39 INDICATION: Elevated dimer and tachycardia. TECHNIQUE: Spiral CTA of the chest (pulmonary arteries) was performed with 100 cc Omnipaque 350 intr avenous contrast injection. Images were acquired during the pulmonary arterial phase. Coronal maxi mum intensity projection 3D-reconstructions were created by the technologist on dedicated workstation . Axial, coronal and sagittal reformatted images were reviewed. The dose-length product (DLP) for t his examination was 350.24 mGy-cm. The exposure was tailored according to patient size (auto mA exp osure control), and iterative reconstruction (ASIR) was used as additional dose reduction technique. 04/24/2021 FINDINGS: Pulmonary arteries are well opacified and without intraluminal filling defects. No thora cic aortic dissection. More confluence to small amount of lingular atelectasis or pneumonia. Right l ower lobe granuloma. There are no pleural or pericardial effusions. Tracheobronchial tree is paten t. There is no mediastinal, hilar or axillary lymphadenopathy. There is no pneumothorax. Heart normal in size. No evidence of coronary arterial calcification. Upper abdomen is unremarkable. T here is thoracic spondylosis without osteoblastic or osteolytic lesions identified. IMPRESSION: 1. No pulmonary emboli. 2. Small amount of lingular atelectasis or pneumonia. Reviewed, dictated and finalized at location A. CH LANGUAGE PATHOLOGIST PRN
--- NOTE | ~2021-05-03 | XR_ITS ---
EXAMINATION: XR chest 1V EXAM DATE: 05/03/2021 15:55 INDICATION: Fatigue and shortness of breath. History of pneumonia one week ago. TECHNIQUE: Frontal and lateral projections of the chest obtained and reviewed. Comparison is made to prior examination from 04/23/2021. FINDINGS: Small amount of left basilar subsegmental atelectasis. The lungs are otherwise clear. Ther e are no pleural effusions. The cardiomediastinal silhouette is within normal limits. There is no p neumothorax suspected. The bones and soft tissues are unremarkable. IMPRESSION: Small amount of left basilar subsegmental atelectasis. Reviewed, dictated and finalized at location A. NOLOGY METHODOLOGY CONSULTANT
[2021-05-03 15:35] VITALS: BP 148/111; PULSE 121; RESP 20; TEMP 35.9; O2SAT 100
--- NOTE | 2021-05-03 16:07 | ECG_ITS ---
Measurements Intervals [place] Rate: 115 P: 54 [place]: 169 QRS: 55 QRSD: 99 T: 43 QT: 326 QTc: 452 Interpretive Statements SINUS TACHYCARDIA BORDERLINE R WAVE PROGRESSION, ANTERIOR LEADS MINIMAL Q WAVES- ANTEROLAT/INF LEADS ABNORMAL ECG Electronically Signed On 05-03-2021 19:49:02 STAMP MOUNTER by Adolfo Mccoy D.O.
[2021-05-03 17:01] LABS: Basophils Absolute Auto 0.1 K/mm3 (0.0-0.1); Basophils Percent Auto 0.5 % (0.2-1.2); Eosinophils Absolute Auto 0.2 K/mm3 (0-0.3); Eosinophils Percent Auto 1.7 % (0-4.4); Hematocrit 34.1 % (37.0-47.0); Hemoglobin 10.9 g/dL (12.0-15.0); Immature Granulocyte Absolute 0.05 K/mm3 (0.00-0.031); Immature Granulocyte Percent A 0.5 % (0-0.5); Lymphocytes Absolute Auto 3.71 K/mm3 (0.9-3.2); Lymphocytes Percent Auto 38.8 % (18.3-44.2); Mean Corpuscular Volume 93.9 fl (80-100); Mean Platelet Volume 8.7 fl (7.4-10.4); Monocytes Absolute Auto 0.7 K/mm3 (0.1-0.6); Monocytes Percent Auto 6.8 % (2.6-8.5); Neutrophils Percent Auto 51.7 % (45.5-73.1); Platelet Count Result 268 k/mm3 (150-375); Red Blood Count 3.63 M/mm3 (4.2-5.4); White Blood Count 9.6 K/mm3 (4.5-10.0)
[2021-05-03 17:14] LABS: Alanine Aminotransferase 35 U/L (4-35); Albumin Level 4.2 g/dL (3.5-5.1); Alkaline Phosphatase 92 U/L (38-126); Anion Gap 6 mmol/L (8-16); Aspartate Amino Transferase 60 U/L (14-36); Bilirubin,Total 0.6 mg/dL (0.2-1.3); Blood Urea Nitrogen 7 mg/dL (7-17); Calcium 9.7 mg/dL (8.4-10.2); Carbon Dioxide 29 mmol/L (22-30); Chloride 106 mmol/L (98-107); Estimated CRCL calculation 110 ml/min; Estimated Glomerular Filt Rate > 60; Glucose 94 mg/dL (65-110); Potassium 3.9 mmol/L (3.4-5.0); Sodium 141 mmol/L (137-145)
[2021-05-03 17:15] LABS: D Dimer 1.86 ug/mL (<0.48)
[2021-05-03 17:21] LABS: NT Pro B Type Natriuretic Pept 95 pg/mL (5-100)
[2021-05-03 18:25] LABS: INR 0.9; Prothrombin Time 12.2 Seconds (11.1-14.7)
[2021-05-03 18:26] LABS: Partial Thromboplastin Time 31.5 SECONDS (22.3-36.8)
[2021-05-03 18:48] LABS: Add Urine Microscopic? YES; Appearance Urine Cloudy (Clear); Bacteria Urine Trace /hpf; Bilirubin Urine Negative (Negative); Blood Urine Negative (Negative); Color Urine Yellow (Yellow); Glucose Urine UA Negative (Negative); Ketones Urine Negative (Negative); Leukocyte Esterase Ur Trace LEU/UL (Negative); Mucus Urine Heavy /lpf; Nitrate Urine Negative (Negative); Protein Urine Negative (Negative); Specific Grav Ur 1.013 (1.001-1.035); Squamous Epithelial Cell Urine Many /hpf (Few); Urobilinogen Urine Negative mg/dL (<2.0)
[2021-05-03 19:00] VITALS: BP 120/48; PULSE 99; RESP 17; O2SAT 99
[2021-05-03 19:39] VITALS: BP 135/99; PULSE 98; RESP 12; O2SAT 97
[2021-05-03 20:16] VITALS: BP 123/75; PULSE 102; RESP 18; O2SAT 96
--- NOTE | 2021-05-03 20:18 | ED.EXTPRO ---
HPI - Extremity Problem General Chief complaint: Extremity Problem,Nontraumatic Stated complaint: swelling in ankles Time Seen by Provider: 05/03/21 17:51 Source: patient History of Present Illness HPI Narrative: Patient comes with bilateral lower extremity edema. Reports symptoms been present for the past 4 days and getting progressively worse symptoms are associated with pain worsened with walking. Pain is achy, constant, radiates up her entire leg. She was seen a few days ago diagnosed with a pneumonia and completed a course of antibiotics and has been feeling improved from her respiratory symptoms. She denies any active chest pain or lightheadedness. She reports mild continued shortness of breath but that has improved since her treatment of pneumonia. Urinary symptoms Related Data Home Medications Medication Instructions Recorded Confirmed buspirone 15 mg PO BID 10/30/20 01/06/21 etonogestrel 0.12 mg-ethinyl 1 vag ring VAGINAL ONCE 12/12/20 01/06/21 estradiol 0.015 mg/24 hr vaginal ring Allergies Allergy/AdvReac Type Severity Reaction Status Date / Time Penicillins Allergy Severe swelling Verified 04/23/21 23:12 clindamycin Allergy Intermediate Swelling Verified 04/23/21 23:12 cefaclor Allergy Unknown Swelling Verified 04/23/21 23:12 cephalexin Allergy Unknown UNKNOWN Verified 04/23/21 23:12 tramadol AdvReac Severe Mirgraines Verified 04/23/21 23:12 Review of Systems Review of Systems: CONSTITUTIONAL: Denies fever, chills, or sweats. EYES: Denies visual changes, redness, or discharge. ENT: Denies rhinorrhea, congestion, sore throat, or otalgia. CARDIOVASCULAR: Denies chest pain, palpitations, or edema. RESPIRATORY: Denies cough or dyspnea. GASTROINTESTINAL: Denies abdominal pain, nausea, vomiting, or diarrhea. GENITOURINARY: Denies dysuria or hematuria. SKIN: Denies rash or itching. MUSCULOSKELETAL: Denies back pain, joint pain, or myalgia. NEUROLOGIC: Denies headache, numbness, dizziness, or weakness. PSYCHIATRIC: Denies anxiety or depression. All systems reviewed & are unremarkable except as noted in HPI and below PMFSH Past Medical History Medical History Anxiety ROSEANN II (cervical intraepithelial neoplasia II) History of x2 Vaginal delivery x 2 Surgical History Surgical History H/O LEEP Social History Social History Smoking packs per day: 0.5 Smoking cigarettes per day: 10.0 Years smoked: 20 Smoking pack-years: 10.00 Smoking status: Current every day smoker Tobacco type: cigarettes Second hand tobacco smoke exposure: Yes Alcohol intake: current Drinks per week: 4 Substance use: current Substance use type: marijuana Gender identity (if verbalized by the patient): Female Spiritual care concerns: No Exam Narrative: GENERAL: Well-appearing, well-nourished, and in no acute distress. HEAD: Normocephalic, atraumatic. EYES: PERRLA and EOMI. ENT: Nares clear, no rhinorrhea or epistaxis. Mucous membranes moist. NECK: Supple. No masses. No JVD CHEST: Clear to auscultation. No respiratory distress. No wheezes rales or rhonchi HEART: Regular rate and rhythm. No murmur heard. Normal peripheral pulses. ABDOMEN: Soft, nontender, nondistended, normal active bowel sounds. EXTREMITIES: Normal range of motion. 3+ pitting edema symmetric up to the knee SKIN: Warm, dry, no rash. NEURO: No focal deficits. Alert and oriented x3. PSYCH: Normal mood and affect. Course Reevaluation(s) Reevaluation #1: Patient is resting comfortably results and plan reviewed with patient. Patient comfortable with the outpatient plan of DVT ultrasound tomorrow morning. Date: 05/03/21 Time: 20:19 Vital Signs Vital signs: Vital Signs Temperature 35.9 C L 05/03/21 15:35 Pulse Rate 121 H 05/03/21 15:35 Respiratory Rate
[2021-05-03] MEDS: ENOXAPARIN 80 MG/0.8 ML SYRINGE SUB-Q (20:23)
== END 2021-05-03 20:35 | disposition home or self-care (01) ==
PROVIDERS: Physician Assistant; Emergency Provider Emergency Medicine; PCP Family Medicine Adolescent Medicine
DX: R60.0 Localized edema (principal); R06.02 Shortness of breath; F17.210 Nicotine dependence, cigarettes, uncomplicated
CPT/HCPCS: 36415; 71045; 71275; 80053; 81001; 81025; 83880; 85025; 85380; 85610; 85730; 87086; 93005; 96372; 99284; J1650; Q9967

== ENCOUNTER 2021-05-04 08:15 | Outpatient (CLI) | payer OTHER, SELFPAY ==
--- NOTE | ~2021-05-04 | US_ITS ---
EXAMINATION: US venous doppler [facility] DATE: 05/04/2021 09:32 INDICATION: Bilateral lower limb swelling TECHNIQUE: Tristan scale images without and with compression and Doppler images of the bilateral lower e xtremity veins were obtained. COMPARISON: None FINDINGS: The bilateral posterior tibial and peroneal veins appear patent but are difficult to evalua te due to edema. The right common femoral vein, profunda femoral vein, femoral vein, popliteal vein, and greater saphe nous vein are patent. The left common femoral vein, profunda femoral vein, femoral vein, popliteal vein, and greater saphen ous vein are patent. IMPRESSION: 1. No evidence of deep venous thrombosis. Reviewed, dictated and finalized at location D. GING PRINCIPAL
== END 2021-05-04 08:16 | disposition home or self-care (01) ==
PROVIDERS: PCP Family Medicine Adolescent Medicine; Visit Provider Emergency Medicine
DX: I82.403 Acute embolism and thrombosis of unspecified deep veins of lower extremity, bilateral (principal)
CPT/HCPCS: 93970

== ENCOUNTER 2021-09-02 23:35 | Emergency (ER) | payer BC, SELFPAY ==
[2021-09-02 23:43] VITALS: BP 177/113; PULSE 150; RESP 20; TEMP 37.1; O2SAT 100
--- NOTE | 2021-09-03 00:05 | ED.GENADULT ---
HPI - General Adult General Chief complaint: Nausea/Vomiting/Diarrhea Stated complaint: feels dehydrated, diarrhea Time Seen by Provider: 09/02/21 23:47 History of Present Illness HPI narrative: Patient is a 36-year-old female presents the emergency department with chief complaint of nausea vomiting and diarrhea. The patient reports for the last several days she has had multiple bouts of vomiting and multiple bouts of diarrhea. The patient reports been unable to tolerate p.o. intake has tried to drink some Pedialyte patient states she feels very lightheaded patient states has become shaky and feels as though she is extremely dehydrated. Related Data Home Medications Medication Instructions Recorded Confirmed buspirone 15 mg PO BID 10/30/20 01/06/21 etonogestrel 0.12 mg-ethinyl 1 vag ring VAGINAL ONCE 12/12/20 01/06/21 estradiol 0.015 mg/24 hr vaginal ring Allergies Allergy/AdvReac Type Severity Reaction Status Date / Time Penicillins Allergy Severe swelling Verified 09/02/21 23:36 clindamycin Allergy Intermediate Swelling Verified 09/02/21 23:36 cefaclor Allergy Unknown Swelling Verified 09/02/21 23:36 cephalexin Allergy Unknown UNKNOWN Verified 09/02/21 23:36 tramadol AdvReac Severe Mirgraines Verified 09/02/21 23:36 Review of Systems Review of Systems: A 10 system review of systems was completed on the patient and is negative except for what is stated in the HPI. Nursing and ancillary documentation was reviewed. PMFSH Past Medical History Medical History Anxiety ROSEANN II (cervical intraepithelial neoplasia II) History of x2 Vaginal delivery x 2 Surgical History Surgical History H/O LEEP Social History Social History Smoking packs per day: 0.5 Smoking cigarettes per day: 10.0 Years smoked: 20 Smoking pack-years: 10.00 Smoking status: Current every day smoker Tobacco type: cigarettes Second hand tobacco smoke exposure: Yes Alcohol intake: current Drinks per week: 4 Substance use: current Substance use type: marijuana Gender identity (if verbalized by the patient): Female Spiritual care concerns: No Exam Narrative: GENERAL: Well-appearing, well-nourished, and in no acute distress. HEAD: Normocephalic, atraumatic. EYES: PERRLA and EOMI. ENT: Nares clear, no rhinorrhea or epistaxis. Mucous membranes moist. NECK: Supple. CHEST: Clear to auscultation. No respiratory distress. HEART: Regular rate and rhythm. No murmur heard. Normal peripheral pulses. ABDOMEN: Soft, diffuse mild tenderness to palpation, nondistended, normal active bowel sounds. EXTREMITIES: Normal range of motion. No edema. SKIN: Warm, dry, no rash. NEURO: No focal deficits. Alert and oriented x3. PSYCH: Normal mood and affect. Course Course Emergency Course: Patient has received IV fluids and is feeling much better. The patient opted did not undergo CT scan. Patient is now able to tolerate p.o. intake Vital Signs Vital signs: Vital Signs Temperature 37.1 C 09/02/21 23:43 Pulse Rate 150 H 09/02/21 23:43 Respiratory Rate 20 09/02/21 23:43 Blood Pressure 177/113 H 09/02/21 23:43 Pulse Oximetry 100 09/02/21 23:43 Temperature 37.1 C 09/02/21 23:43 Pulse Rate 95 09/03/21 03:28 Respiratory Rate 18 09/03/21 03:28 Blood Pressure 143/88 H 09/03/21 03:28 Pulse Oximetry 100 09/03/21 03:28 Medical Decision Making Vital Signs Vital Signs: Vital Signs Temperature 37.1 C 09/02/21 23:43 Pulse Rate 150 H 09/02/21 23:43 Respiratory Rate 20 09/02/21 23:43 Blood Pressure 177/113 H 09/02/21 23:43 Pulse Oximetry 100 09/02/21 23:43 Temperature 37.1 C 09/02/21 23:43 Pulse Rate 95 09/03/21 03:28 Respiratory Rate 18 09/03/21 03:28 Blood Pressure 143/88 H
[2021-09-03 00:10] LABS: Basophils Percent Auto 0.4 % (0.2-1.2); Eosinophils Absolute Auto 0.1 K/mm3 (0-0.3); Eosinophils Percent Auto 1.2 % (0-4.4); Hemoglobin 9.9 g/dL (12.0-15.0); Immature Granulocyte Absolute 0.05 K/mm3 (0.00-0.031); Immature Granulocyte Percent A 0.6 % (0-0.5); Immature Platelet Fraction Pct 4.5 % (0.9-11.2); Lymphocytes Absolute Auto 3.44 K/mm3 (0.9-3.2); Lymphocytes Percent Auto 40.6 % (18.3-44.2); Mean Platelet Volume 10.2 fl (7.4-10.4); Monocytes Absolute Auto 0.7 K/mm3 (0.1-0.6); Monocytes Percent Auto 7.8 % (2.6-8.5); Neutrophils Absolute Auto 4.2 K/mm3 (1.3-6.7); Neutrophils Percent Auto 49.4 % (45.5-73.1); Nucleated Red Blood Cells Perc 0.2 % (0.0-0.2); Platelet Count Result 87 k/mm3 (150-375); Red Cell Distribution Width 28.4 % (11.5-14.5); White Blood Count 8.5 K/mm3 (4.5-10.0)
[2021-09-03 00:18] LABS: Add Urine Microscopic? YES; Appearance Urine Cloudy (Clear); Bacteria Urine Trace /hpf; Bilirubin Urine Negative (Negative); Blood Urine 3+ (Negative); Color Urine Amber (Yellow); Glucose Urine UA Negative (Negative); Ketones Urine Negative (Negative); Leukocyte Esterase Ur 1+ LEU/UL (Negative); Mucus Urine Few /lpf; Nitrate Urine Negative (Negative); Protein Urine 2+ mg/dL (Negative); RBC Urine >75 /hpf (0-2); Specific Grav Ur 1.026 (1.001-1.035); Squamous Epithelial Cell Urine Many /hpf (Few); Urobilinogen Urine Negative mg/dL (<2.0); WBC Urine 31-50 /hpf
[2021-09-03 00:21] LABS: Alanine Aminotransferase 20 U/L (4-35); Albumin Level 4.5 g/dL (3.5-5.1); Alkaline Phosphatase 70 U/L (38-126); Anion Gap 12 mmol/L (8-16); Aspartate Amino Transferase 99 U/L (14-36); Bilirubin,Total 1.3 mg/dL (0.2-1.3); Blood Urea Nitrogen 7 mg/dL (7-17); Calcium 9.1 mg/dL (8.4-10.2); Carbon Dioxide 21 mmol/L (22-30); Chloride 101 mmol/L (98-107); Estimated CRCL calculation 96 ml/min; Estimated Glomerular Filt Rate > 60; Glucose 127 mg/dL (65-110); Lipase 193 U/L (23-300); Potassium 3.2 mmol/L (3.4-5.0); Sodium 134 mmol/L (137-145)
[2021-09-03] MEDS: ONDANSETRON INJ 4 MG/2 ML VIAL IV PUSH (00:42)
[2021-09-03] MEDS: SODIUM CHLORIDE 0.9% IV 1,000 ML 999 ML IV CONT ×2 (00:43→01:24)
[2021-09-03] MEDS: DICYCLOMINE HCL INJ 20 MG/2 ML VIAL IM (00:43)
[2021-09-03 00:49] VITALS: BP 141/111; PULSE 116; RESP 18; O2SAT 100
--- NOTE | 2021-09-03 00:51 | PC.NURSE ---
Patient states she does not want the CT scan, ERP notified.
--- NOTE | 2021-09-03 01:44 | PC.NURSE ---
Pt requesting additional nausea medication. EDP notified
[2021-09-03] MEDS: PROCHLORPERAZINE EDISYLATE 10 MG/2 ML VIAL IV PUSH (01:47)
[2021-09-03 02:21] VITALS: BP 146/90; PULSE 101
[2021-09-03 02:22] VITALS: BP 140/94; PULSE 106
[2021-09-03 02:25] VITALS: BP 123/107; PULSE 124
[2021-09-03 03:28] VITALS: BP 143/88; PULSE 95; RESP 18; O2SAT 100
--- NOTE | 2021-09-03 04:03 | PC.NURSE ---
Pt states she feels much better. Ambulated to bathroom with steady gait
[2021-09-03 04:35] VITALS: BP 139/91; PULSE 108; RESP 19; O2SAT 100
== END 2021-09-03 04:37 | disposition home or self-care (01) ==
PROVIDERS: Emergency Provider Emergency Medicine; PCP Family Medicine Adolescent Medicine
DX: K52.9 Noninfective gastroenteritis and colitis, unspecified (principal); N30.00 Acute cystitis without hematuria; F41.9 Anxiety disorder, unspecified; F17.200 Nicotine dependence, unspecified, uncomplicated
CPT/HCPCS: 36415; 80053; 81001; 81025; 83690; 85025; 85055; 87077; 87086; 87186; 96361; 96372; 96374; 96375; 99284; J0500; J0780; J2405; J7030

== ENCOUNTER 2021-11-03 15:01 | Observation (INO) | payer BC, SELFPAY ==
[2021-11-03] VITALS (16 sets, daily range): BP systolic 136–155; BP diastolic 56–113; PULSE 101–130; RESP 15–25; TEMP 36.3–37.1; O2SAT 97–100; BMI 25.1
--- NOTE | ~2021-11-03 | US_ITS ---
EXAMINATION: US abdomen limited DATE: 11/05/2021 14:30 INDICATION: Pancytopenia. TECHNIQUE: Multiple grayscale and Doppler ultrasound images of the abdomen were obtained. COMPARISON: Ultrasound 02/17/2015 FINDINGS: The visualized portions of the head, body, and tail of the pancreas are normal. There is di ffuse hepatic steatosis. No liver surface nodularity. There is normal flow in main portal vein. The g allbladder is contracted. No gallstones. There was no sonographic Fitzgerald sign. The common duct is nor mal and measures 3 mm. IMPRESSION: 1. Diffuse hepatic steatosis. Reviewed, dictated and finalized at location B.
--- NOTE | ~2021-11-03 | CT_ITS ---
EXAMINATION: CT cervical spine wo con DATE: 11/03/2021 15:50 INDICATION: head injury following seizure TECHNIQUE: Computed tomography (CT) of the cervical spine was performed without intravenous contrast. Automated exposure control and iterative reconstruction technique were employed. The dose-length pro duct was 371.70 mGy-cm. COMPARISON: CT soft tissue neck 01/07/2016 FINDINGS: Counting reference: Craniocervical junction. There are seven cervical type vertebral bodies. Anatomic Variants: None.. Vertebral Body Alignment: Intact. Craniocervical junction: No significant degenerative change. Cervical straightening as can occur w ith positioning or spasm, otherwise alignment is intact. Osseous structures/fracture: No evidence of a lytic or blastic process in the visualized spine. N o evidence of acute fracture. Trace right mastoid fluid without evidence of temporal bone fracture. Cervical soft tissues: The paraspinal soft tissues planes are maintained. Small right apical blebs . Degenerative changes: No significant degenerative changes. IMPRESSION: No acute fracture or traumatic malalignment in the cervical spine. Reviewed, dictated and finalized at location K.
--- NOTE | ~2021-11-03 | CT_ITS ---
EXAMINATION: CT brain wo con DATE: 11/03/2021 15:50 INDICATION: seizure TECHNIQUE: Computed tomography (CT) of the head was performed without intravenous contrast. The mA wa s adjusted according to patient size. Iterative reconstruction technique was employed. The dose-lengt h product was 605.33 mGy-cm. COMPARISON: None FINDINGS: No acute intracranial hemorrhage or extra-axial fluid collection. No hydrocephalus, mass, or herniation. No acute ischemic infarct. Unremarkable dural venous sinus attenuation. No acute osseous abnormality. The aerated spaces are clear. IMPRESSION: No acute intracranial process. Reviewed, dictated and finalized at location K.
--- NOTE | ~2021-11-03 | XR_ITS ---
XR foot LT min 3V DATE: 11/04/2021 05:54 INDICATION: Left foot pain, base of fifth metatarsal bone TECHNIQUE: 4 views COMPARISON: None FINDINGS: Hallux valgus. No fracture, dislocation, periosteal reaction or bone destruction. Joint spaces are preserved. No ero sive change. IMPRESSION: Hallux valgus Reviewed, dictated and finalized at location A. IMPRESSION: Hallux valgus
--- NOTE | 2021-11-03 15:33 | ED.SEIZURE ---
HPI - Seizure General Chief Complaint: Seizure Stated Complaint: had 2 sz Time Seen by Provider: 11/03/21 15:11 History of Present Illness HPI Narrative: 36-year-old female presents to the emergency room for evaluation of 2 witnessed seizures that occurred this morning. Patient does not have a seizure history. According to patient's significant other, patient began seizing around 830 this morning. Significant other stated that he was concerned because she was not breathing so he began performing CPR. Following approximately 1 minute of CPR/rescue breathing, according to significant other, the patient began breathing on her own. About 4 hours later patient was sitting in her chair and fell to the floor, again seizing. Significant other states that for the second time today, began rescue breathing and CPR. Seizure lasted approximately 2 to 3 minutes. On presentation to the emergency room, patient states that she has a significant history of drinking alcohol. She states that she drinks approximately 15-20 drinks daily. Patient states she usually wakes up with tremors, and has to drink in the morning to relieve herself of the symptoms. Patient also states she drinks heavily prior to driving and before going to work. Related Data Home Medications Medication Instructions Recorded Confirmed buspirone 15 mg PO BID 10/30/20 01/06/21 etonogestrel 0.12 mg-ethinyl 1 vag ring VAGINAL ONCE 12/12/20 01/06/21 estradiol 0.015 mg/24 hr vaginal ring Allergies Allergy/AdvReac Type Severity Reaction Status Date / Time Penicillins Allergy Severe swelling Verified 11/03/21 17:59 clindamycin Allergy Intermediate Swelling Verified 11/03/21 17:59 cefaclor Allergy Unknown Swelling Verified 11/03/21 17:59 cephalexin Allergy Unknown UNKNOWN Verified 11/03/21 17:59 tramadol AdvReac Severe Mirgraines Verified 11/03/21 17:59 Review of Systems Review of Systems: CONSTITUTIONAL: Denies fever, chills, or sweats. EYES: Denies visual changes, redness, or discharge. ENT: Denies rhinorrhea, congestion, sore throat, or otalgia. CARDIOVASCULAR: Denies chest pain, palpitations, or edema. RESPIRATORY: Denies cough or dyspnea. GASTROINTESTINAL: Denies abdominal pain, nausea, vomiting, or diarrhea. GENITOURINARY: Denies dysuria or hematuria. SKIN: Denies rash or itching. MUSCULOSKELETAL: Reports left elbow pain, reports left foot pain NEUROLOGIC: Denies headache, numbness, dizziness, or weakness. PSYCHIATRIC: Denies anxiety or depression. [facility] Past Medical History Medical History Anxiety ROSEANN II (cervical intraepithelial neoplasia II) History of x2 Vaginal delivery x 2 Surgical History Surgical History H/O LEEP Social History Social History Smoking packs per day: 0.5 Smoking cigarettes per day: 10.0 Years smoked: 20 Smoking pack-years: 10.00 Smoking status: Current every day smoker Tobacco type: cigarettes Second hand tobacco smoke exposure: Yes Alcohol intake: current Drinks per week: 4 Substance use: current Substance use type: marijuana Gender identity (if verbalized by the patient): Female Spiritual care concerns: No Exam Narrative: GENERAL: Well-appearing, well-nourished, and in no acute distress. HEAD: Normocephalic, atraumatic. EYES: PERRLA and EOMI. ENT: Nares clear, no rhinorrhea or epistaxis. Mucous membranes dry. CHEST: Clear to auscultation. No respiratory distress. No wheezes rales or rhonchi HEART: Tachycardic normal rhythm. No murmur heard. Normal peripheral pulses. ABDOMEN: Soft, nontender, nondistended, normal active bowel sounds. EXTREMITIES: Left elbow: Ecchymosis and tenderness noted to the proximal forearm and distal humerus, no bony abnormality, full range of motion of the elbow. Left foot: Tenderness to the base o
--- NOTE | 2021-11-03 15:43 | ECG_ITS ---
Measurements Intervals [place] Rate: 112 P: 13 [place]: 144 QRS: 56 QRSD: 102 T: 36 QT: 352 QTc: 483 Interpretive Statements SINUS TACHYCARDIA VENTRICULAR BIGEMINY BASELINE ARTIFACT- I, II, III, AVR, AVL, AVF ABNORMAL ECG Electronically Signed On 11-03-2021 20:31:43 CDT by Adolfo Mccoy D.O.
[2021-11-03 16:19] LABS: Basophils Absolute Auto 0.1 K/mm3 (0.0-0.1); Basophils Percent Auto 0.6 % (0.2-1.2); Eosinophils Percent Auto 0.1 % (0-4.4); Hematocrit 31.9 % (37.0-47.0); Hemoglobin 10.1 g/dL (12.0-15.0); Immature Granulocyte Absolute 0.05 K/mm3 (0.00-0.031); Immature Granulocyte Percent A 0.6 % (0-0.5); Lymphocytes Percent Auto 20.8 % (18.3-44.2); Mean Corpuscular HGB Conc 31.7 g/dl (32-36); Mean Corpuscular Hemoglobin 31.4 pg (26-34); Mean Corpuscular Volume 99.1 fl (80-100); Mean Platelet Volume 10.5 fl (7.4-10.4); Monocytes Absolute Auto 0.6 K/mm3 (0.1-0.6); Monocytes Percent Auto 8.2 % (2.6-8.5); Neutrophils Absolute Auto 5.4 K/mm3 (1.3-6.7); Neutrophils Percent Auto 69.7 % (45.5-73.1); Platelet Count Result 81 k/mm3 (150-375); Red Blood Count 3.22 M/mm3 (4.2-5.4); Red Cell Distribution Width 21.5 % (11.5-14.5); White Blood Count 7.7 K/mm3 (4.5-10.0)
[2021-11-03 16:30] LABS: Ethanol 158 mg/dL (<10); INR 1.1; Prothrombin Time 13.3 Seconds (11.1-14.7)
[2021-11-03 16:42] LABS: Alanine Aminotransferase 23 U/L (6-35); Albumin Level 4.8 g/dL (3.5-5.1); Alkaline Phosphatase 80 U/L (38-126); Anion Gap 17 mmol/L (8-16); Aspartate Amino Transferase 102 U/L (14-36); Bilirubin,Total 0.7 mg/dL (0.2-1.3); Blood Urea Nitrogen 8 mg/dL (7-17); Carbon Dioxide 20 mmol/L (22-30); Chloride 102 mmol/L (98-107); Estimated Glomerular Filt Rate 43; Glucose 100 mg/dL (65-110); Lipase 132 U/L (23-300); Sodium 139 mmol/L (137-145)
[2021-11-03] MEDS: LORazepam INJ (*CRX) 2 MG/ML VIAL IV PUSH (16:45)
[2021-11-03] MEDS: SODIUM CHLORIDE 0.9% IV 1,000 ML 999 ML IV CONT ×2 (16:46→20:48)
[2021-11-03 17:05] LABS: Add Urine Microscopic? YES; Appearance Urine Slightly Cloudy (Clear); Bilirubin Urine Negative (Negative); Blood Urine 2+ (Negative); Color Urine Yellow (Yellow); Glucose Urine UA Negative (Negative); Ketones Urine Negative (Negative); Leukocyte Esterase Ur Trace LEU/UL (Negative); Nitrate Urine Negative (Negative); Protein Urine 1+ mg/dL (Negative); Urobilinogen Urine 0.2 mg/dL (<2.0)
[2021-11-03 17:10] LABS: Amphetamine Screen Urine Negative (Negative); Barbiturate Screen Urine Negative (Negative); Benzodiazepines Screen Urine Negative (Negative); Cannabinoid Screen Urine Positive (Negative); Cocaine Screen Urine Positive (Negative); Methadone Screen Urine Negative (Negative); Opiate Screen Urine Negative (Negative); Phencyclidine Screen Urine Negative (Negative)
[2021-11-03 17:37] LABS: Hyaline Casts Urine 30-49 /lpf; Mucus Urine Rare /lpf; RBC Urine 0-2 /hpf (0-2); Squamous Epithelial Cell Urine Few /hpf (Few)
[2021-11-03 17:40] LABS: Magnesium 1.7 mg/dL (1.6-2.3)
[2021-11-03 17:53] LABS: Troponin I 0.021 ng/mL (0.000-0.034)
[2021-11-03] MEDS: THIAMINE HCL INJ 100 MG, FOLIC ACID INJ 1 MG, MULTIVITAMINS-12 INJ VIAL 1 5 ML, MULTIVI... 125 MG IV CONT (18:42)
[2021-11-03] MEDS: POTASSIUM CHLORIDE 20 MEQ PACKET (FOR LIQUID) 40 MEQ PO (19:05)
[2021-11-03] MEDS: chlordiazePOXIDE (*CRX) 10 MG CAPSULE PO (19:05)
--- NOTE | 2021-11-03 21:12 | PC.NURSE ---
This patient, Kesha Glez, was admitted to IMU Room 202-01 at 2108. Patient oriented to hospital policies and general routines including ID bracelet, bed and alarms, visiting hours, pain management, procedures, bathroom and other care routines, personal items, smoking policy, room service/diet, and visiting hours. Information on how to activate the Rapid Response Team has been discussed. Patient is encouraged to report perceived risks to care and to ask questions if they do not understand what they are told or what they should do.
--- NOTE | 2021-11-03 21:56 | PM.IMHP ---
H&P: HPI History of Present Illness Date/Time: 11/03/21 23:50 Chief Complaint: Two seizures Narrative: 36-year-old female with past medical history of alcohol abuse, cocaine abuse and depression who presented to the ER with 2 witnessed seizures. The patient reports heavy alcohol use. She drinks between 1 pt and 1/5 of alcohol a day. She only drink 1 pt of alcohol yesterday since she had to work. She did manage to drink 1 alcoholic beverages morning around 830. She reports that she has tremors 1st thing every morning and has to have a drink before she can start her day. She usually has to drink before she can drive so that she is not shaking so bad. She had stood drink alcohol to be functional. 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 She is worried that if she gets a excuse for work that we will mention her diagnosis in that she will get fired. She reports irritability if she does not drink. She has never had a prior seizure. This morning her boyfriend noticed that she had a seizure were she open her mouth and stared straight ahead and was unresponsive for 1 minute. He gave her some rescue breath. Approximately 4 hours later the patient was sitting in her chair and fell to the floor on a concrete surface. She struck her head and bit her tongue. She does not know if she had incontinence of her bladder. This seizure lasted 2-3 minutes. She reports pain in her left hip and pain on the side of her left foot following the seizure. She reported that she was confused after the seizure and does not remember having a CT scan of her head. In the ER staff tried to obtain x-rays of the patient's hip and foot but she refused x-rays. She reports that she has been getting more forgetful over recent months but has also had increased alcohol consumption over those months. She has drank heavily since she was a teenager but has been drinking all day every day for the last 6 months or so. She is a 13-year-old and a 16-year-old daughter at home. She reports that she has numerous bouts of diarrheal stools daily for the last 3-4 months. Her diarrhea worsened when she started drinking more heavily. She reports she used to her have occasional crampy lower abdominal pain prior to her diarrheal episodes but has not had any abdominal pain in months. She has tried Pepto-Bismol for her symptoms without any relief. She denies any heartburn or epigastric pain. Her stools have been darker on the days that she takes Pepto-Bismol. She denies any hematemesis or coffee-ground emesis. She reports that she has had significant decrease in appetite since she has started to drink some much alcohol. She reports that she drinks alcohol instead of eating. She has lost 10 lb in the last several months. She denies any ill affects to her job due to her alcohol use. She denies any relationship difficulties due to her alcohol use. The patient and her brother both alcoholics. The patient's mother has been encouraging the patient to quit drinking for quite some time. Review of Systems Review of Systems: 12 systems were reviewed with pertinent positives and negatives per HPI. Except as documented in the HPI, all other systems were reviewed and are negative. [facility] Past Medical History Medical History (Updated 11/04/21 @ 02:07 by Lucinda Nguyen DO) Alcohol abuse Anxiety Chronic anemia ROSEANN II (cervical intraepithelial neoplasia II) History of x2 Vaginal delivery x 2 Surgical History Surgical History H/O LEEP (10/2020) Family History Family History Sibling Alcoholism Social History Social History (Updated 11/04/21 @ 02:12 by Lucinda Nguyen DO) Social History: She lives at home with her boyfriend and 2 daughters. Her daughters are 13 and 16 years of age. 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
[2021-11-03] MEDS: busPIRone HCL 5 MG TABLET 15 MG PO (23:32)
[2021-11-03] MEDS: THIAMINE HCL 200 MG/2 ML VIAL 100 MG IV PUSH (23:32)
[2021-11-03] MEDS: MAGNESIUM SULF 2 GM/WATER 50ML 2 GM/50 ML BAG IVPB (23:33)
[2021-11-03] MEDS: chlordiazePOXIDE (*CRX) 25 MG CAPSULE PO (23:33)
[2021-11-03] MEDS: POTASSIUM CHLORIDE 20 MEQ TABLET 40 MEQ PO (23:33)
[2021-11-04] VITALS (13 sets, daily range): BP systolic 113–136; BP diastolic 60–91; PULSE 80–133; RESP 18–24; TEMP 36.2–36.6; O2SAT 100
[2021-11-04] MEDS: SODIUM CHLORIDE 0.9% IV 1,000 ML 125 ML IV CONT ×3 (00:35→22:43)
[2021-11-04] MEDS: chlordiazePOXIDE (*CRX) 25 MG CAPSULE PO ×4 (04:43→22:43)
[2021-11-04] MEDS: LOPERAMIDE HCL 2 MG CAPSULE 4 MG PO (04:43)
[2021-11-04 04:52] LABS: Hematocrit 28.1 % (37.0-47.0); Hemoglobin 8.7 g/dL (12.0-15.0); Immature Platelet Fraction Pct 5.3 % (0.9-11.2); Mean Corpuscular Hemoglobin 31.1 pg (26-34); Mean Corpuscular Volume 100.4 fl (80-100); Mean Platelet Volume 10.3 fl (7.4-10.4); Platelet Count Result 73 k/mm3 (150-375); Red Cell Distribution Width 21.2 % (11.5-14.5); White Blood Count 4.5 K/mm3 (4.5-10.0)
[2021-11-04 05:08] LABS: Alanine Aminotransferase 18 U/L (6-35); Albumin Level 3.1 g/dL (3.5-5.1); Alkaline Phosphatase 63 U/L (38-126); Anion Gap 4 mmol/L (8-16); Aspartate Amino Transferase 92 U/L (14-36); Bilirubin,Total 1.1 mg/dL (0.2-1.3); Blood Urea Nitrogen 5 mg/dL (7-17); Calcium 7.5 mg/dL (8.4-10.2); Carbon Dioxide 22 mmol/L (22-30); Chloride 109 mmol/L (98-107); Estimated CRCL calculation 109 ml/min; Estimated Glomerular Filt Rate > 60; Glucose 88 mg/dL (65-110); Potassium 3.8 mmol/L (3.4-5.0); Sodium 135 mmol/L (137-145)
[2021-11-04 05:36] LABS: Iron 177 ug/dL (37-170)
[2021-11-04 05:45] LABS: Percent Iron Saturation 65 % (20-50)
[2021-11-04 06:12] LABS: Folic Acid 7.4 ng/mL (2.76->20)
[2021-11-04] MEDS: LORazepam INJ (*CRX) 2 MG/ML VIAL 1 MG IV PUSH (08:15)
[2021-11-04] MEDS: busPIRone HCL 5 MG TABLET 15 MG PO ×2 (08:23→20:33)
[2021-11-04] MEDS: LOPERAMIDE HCL 2 MG CAPSULE PO (08:23)
[2021-11-04] MEDS: NICOTINE (*PBKC) 14 MG PATCH 1 PATCH TRANSDERM (08:23)
--- NOTE | 2021-11-04 09:25 | PM.IMPN ---
Progress Note: A&P Assessment and Plan (1) Alcohol related seizure: Code(s): R56.9 - Unspecified convulsions Status: Acute Assessment and Plan: CONTINUE BASELINE LIBRIUM AND LORAZEPAM P.R.N. CILA PROTOCOL (2) Alcohol intoxication: Qualifiers: Complication of substance-induced condition: with unspecified complication Qualified Code(s): F10.929 - Alcohol use, unspecified with intoxication, unspecified Code(s): F10.929 - Alcohol use, unspecified with intoxication, unspecified Status: Acute Assessment and Plan: RESOLVED (3) Cocaine use: Code(s): F14.90 - Cocaine use, unspecified, uncomplicated Status: Acute Assessment and Plan: SPORADIC PER HISTORY (4) Hypokalemia: Code(s): E87.6 - Hypokalemia Status: Acute Assessment and Plan: RESOLVED (5) Acute kidney injury: Code(s): N17.9 - Acute kidney failure, unspecified Status: Acute Assessment and Plan: RESOLVED (6) Chronic anemia: Code(s): D64.9 - Anemia, unspecified Status: Acute Assessment and Plan: SUSPECT MARROW TOXICITY DUE TO ALCOHOL GIVEN HER THROMBOCYTOPENIA AND MACROCYTOSIS. [place] Subjective Date/time seen: 11/04/21 09:25 Interval history: 11/04. No further seizures since admission. Tremulous intermittently. No cravings for alcohol at this point. Willing to consider intensive outpatient rehab. Does not want to do inpatient. No prior history of seizures. He is having some diarrhea with her withdrawal. Was having diarrhea with her heavy drinking as well. Pain left side of body especially left foot. No swelling or discoloration. Denied chest pain or shortness of breath or abnormal bleeding. No GI or complaints. Review of Systems Review of Systems: All systems reviewed & are unremarkable except as noted in HPI and below Exam Narrative: HEENT: PERRL, sclerae nonicteric, pharyngeal mucosa pink and intact NECK: No JVD CHEST: Clear to auscultation. Normal effort. HEART: NL S1/S2, regular, no murmur ABDOMEN: BS+, soft, nontender, no mass, no bruits EXTREMITIES: No cyanosis, edema, or clubbing NEUROLOGIC: CN intact and symmetric to inspection. MUSCULOSKELETAL: Tone and strength symmetric. LEFT ANKLE WITHOUT SWELLING OR DISCOLORATION. FULL RANGE OF MOTION. DORSIFLEXION PLANTAR FLEXION INVERSION AND EVERSION INTACT. PSYCH: Alert. Oriented to person, place, and time. Objective Data Vital Signs Vital Signs: Vital Signs - 24 hr 11/03/21 15:26 11/03/21 15:29 11/03/21 15:31 Temperature 97.3 F L Pulse Rate 130 H 115 H Pulse Rate [Monitor] Respiratory Rate 20 Blood Pressure 143/107 H Pulse Oximetry 97 100 11/03/21 17:16 11/03/21 17:57 11/03/21 18:42 Temperature Pulse Rate 122 H 112 H 105 H Pulse Rate [Monitor] Respiratory Rate 15 19 19 Blood Pressure 145/108 H 155/113 H Pulse Oximetry 97 100 100 11/03/21 18:45 11/03/21 19:20 11/03/21 19:30 Temperature Pulse Rate 105 H 122 H 114 H Pulse Rate [Monitor] Respiratory Rate 18 21 H 17 Blood Pressure 136/109 H Pulse Oximetry 100 98 98 11/03/21 19:31 11/03/21 19:45 11/03/21 20:58 Temperature 97.9 F Pulse Rate 127 H 118 H 105 H Pulse Rate [Monitor] Respiratory Rate 25 H 18 Blood Pressure 136/101 H Pulse Oximetry 98 99 98 11/03/21 21:19 11/03/21 21:47 11/03/21 22:00 Temperature 97.9 F Pulse Rate 109 H 105 H Pulse Rate [Monitor] 107 H Respiratory Rate 20 Blood Pressure 153/56 H 153/56 H Pulse Oximetry 100 11/03/21 23:30 11/04/21 00:00 11/04/21 02:00 Temperature 98.7 F Pulse Rate 101 H 133 H 97 Pulse Rate [Monitor] 111 H Respiratory Rate 20 Blood Pressure 136/86 136/86 Pulse Oximetry 100 100 11/04/21 04:00 11/04/21 06:00 11/04/21 07:46 Temperature 97.8 F Pulse Rate 85 85 Pulse Rate [Monitor] 80 Respiratory Rate 18 Blood Pressure 115/70 Pulse Oximetry 100 11/04/21 08:00 Te
--- NOTE | 2021-11-04 13:01 | PC.NURSE ---
After attempts by this nurse and 3 other nurses including the malt house loader, IV access was not obtained. It was suggested that [facility] be called to see if they could come do peripheral access. This nurse called the patient's hospitalist Dr. Sam and he stated that patient definitely needed IV access, preferably peripheral but a midline would suffice if that is all they would do. [facility] was called and they stated that they would only be able to insert a midline. A midline was ordered.
[2021-11-04] MEDS: LORazepam (*CRX) 1 MG TABLET PO (13:45)
[2021-11-05] VITALS (11 sets, daily range): BP systolic 130–144; BP diastolic 75–96; PULSE 76–100; RESP 18–20; TEMP 36.3–37.5; O2SAT 100; BMI 25.2
[2021-11-05] MEDS: chlordiazePOXIDE (*CRX) 25 MG CAPSULE PO ×3 (05:07→21:01)
[2021-11-05 05:15] LABS: Hematocrit 25.3 % (37.0-47.0); Hemoglobin 7.7 g/dL (12.0-15.0); Immature Platelet Fraction Pct 7.1 % (0.9-11.2); Mean Corpuscular HGB Conc 30.4 g/dl (32-36); Mean Corpuscular Hemoglobin 31.3 pg (26-34); Mean Corpuscular Volume 102.8 fl (80-100); Mean Platelet Volume 11.2 fl (7.4-10.4); Platelet Count Result 68 k/mm3 (150-375); Red Blood Count 2.46 M/mm3 (4.2-5.4); Red Cell Distribution Width 21.2 % (11.5-14.5); White Blood Count 4.2 K/mm3 (4.5-10.0)
[2021-11-05 05:23] LABS: Alanine Aminotransferase 16 U/L (6-35); Albumin Level 2.9 g/dL (3.5-5.1); Alkaline Phosphatase 58 U/L (38-126); Anion Gap 3 mmol/L (8-16); Aspartate Amino Transferase 63 U/L (14-36); Bilirubin,Total 0.5 mg/dL (0.2-1.3); Calcium 7.6 mg/dL (8.4-10.2); Carbon Dioxide 23 mmol/L (22-30); Chloride 110 mmol/L (98-107); Estimated CRCL calculation 125 ml/min; Estimated Glomerular Filt Rate > 60; Glucose 96 mg/dL (65-110); Magnesium 1.8 mg/dL (1.6-2.3); Phosphorus 2.8 mg/dL (2.5-4.5); Potassium 3.4 mmol/L (3.4-5.0); Sodium 136 mmol/L (137-145)
[2021-11-05 05:48] LABS: Blood Urea Nitrogen < 2 mg/dL (7-17)
[2021-11-05] MEDS: SODIUM CHLORIDE 0.9% IV 1,000 ML 125 ML IV CONT (06:32)
[2021-11-05] MEDS: NICOTINE (*PBKC) 14 MG PATCH 1 PATCH TRANSDERM (08:53)
[2021-11-05] MEDS: busPIRone HCL 5 MG TABLET 15 MG PO ×2 (08:53→21:01)
[2021-11-05] MEDS: LORazepam INJ (*CRX) 2 MG/ML VIAL 1 MG IV PUSH (09:01)
--- NOTE | 2021-11-05 09:41 | PM.IMPN ---
Progress Note: A&P Assessment and Plan (1) Alcohol related seizure: Code(s): R56.9 - Unspecified convulsions Status: Acute Assessment and Plan: Patient currently on Hydrea 25 q.6 hours, lorazepam 1 mg p.r.n. Last CIWA at 0800 was 8. Patient had seizure leading to admission, likely due to combination of alcohol abuse/withdrawal and or cocaine abuse. Given the patient's heavy alcohol use and evidence of tremors and elevated CIWA score alcohol withdrawal is highly likely. PT spoken w/ care coord and is willing to pursue outpatient treatment. CIWA scores have been ordered every 4 hours Seizure precautions Continue librium scheduled/ ativan PRN for CIWA>8 Care coordination consult for opt treatment. (2) Alcohol intoxication: Qualifiers: Complication of substance-induced condition: with unspecified complication Qualified Code(s): F10.929 - Alcohol use, unspecified with intoxication, unspecified Code(s): F10.929 - Alcohol use, unspecified with intoxication, unspecified Status: Acute Assessment and Plan: RESOLVED (3) Cocaine use: Code(s): F14.90 - Cocaine use, unspecified, uncomplicated Status: Acute Assessment and Plan: Last use 11/02/2021. (4) Hypokalemia: Code(s): E87.6 - Hypokalemia Status: Acute Assessment and Plan: RESOLVED (5) Acute kidney injury: Code(s): N17.9 - Acute kidney failure, unspecified Status: Acute Assessment and Plan: RESOLVED. Patient euvolemic, BUN/Cr normal, can hold IVF. (6) Chronic anemia: Code(s): D64.9 - Anemia, unspecified Status: Acute Assessment and Plan: Current pancytopenia, with macrocytosis likely due to chronic alcohol abuse. Iron is high, TIBC normal, ferritin normal, folate and B12 normal. Albumin 2.9. RUQ ultrasound shows 1. Diffuse hepatic steatosis. Started patient on thiamine and folate today. Stool fecal occult blood Additional Plan The patient has chronic diarrhea. Will add Imodium as needed. Patient has maintained normal sinus rhythm without any significant tachycardia for 24 hrs. OK to hold telemetry at this time. Subjective Date/time seen: 11/05/21 09:41 Interval history: 36-year-old female with history significant for alcohol use with withdrawal seizures, cocaine use, chronic anemia, who presents to us after a seizure with a fall. Her diarrhea is improving here. She denies chills, hallucinations, abdominal pain, current cravings for alcohol, palpitations, tremor, or seizures. She reports that she has numerous bouts of diarrheal stools daily for the last 3-4 months. Her diarrhea worsened when she started drinking more heavily. She reports she used to her have occasional crampy lower abdominal pain prior to her diarrheal episodes but has not had any abdominal pain in months. In the past few months she has elected to drink alcohol instead of eating if she has the choice. Ethyl alcohol upon admission was 158, and she was positive for cocaine and cannabinoids. She is anxious and wants to go home today, but does understand why she needs to stay. She states she would like to quit drinking, however she knows when she goes home the temptation will be present and she will more than likely continue drinking. Review of Systems Review of Systems: All systems reviewed & are unremarkable except as noted in HPI and below Exam Narrative: GENERAL APPEARANCE: Alert and oriented x 3, in no apparent distress. HEENT: PERRL, EOMI. Sclerae anicteric. Moist mucous membranes. Right-sided periorbital ecchymosis. NECK: Supple. No JVD or obvious carotid bruits. RESPIRATORY: Respirations are nonlabored. Breath sounds are equal and clear bilaterally. No wheezes, Rhonchi, or rales. CARDIOVASCULAR: Regular rate and rhythm with normal S1-S2. No murmurs, gallops, or rubs. GASTROINTESTINAL: Soft, flat, and benign. No mass, tenderness, guardi
[2021-11-05 10:50] LABS: Hepatitis B Surface Antigen Negative (Negative)
[2021-11-05 10:56] LABS: HAV RESULT Negative (Negative); Hepatitis B Core IgM Result Negative (Negative)
[2021-11-05 11:07] LABS: Hepatitis C Virus Antibody Negative (Negative)
[2021-11-05] MEDS: FOLIC ACID 1 MG TABLET PO (11:31)
[2021-11-05] MEDS: THIAMINE HCL 100 MG TABLET PO (11:31)
[2021-11-05 13:44] LABS: Basophils Percent Auto 0.5 % (0.2-1.2); Eosinophils Absolute Auto 0.1 K/mm3 (0-0.3); Eosinophils Percent Auto 1.5 % (0-4.4); Hematocrit 26.7 % (37.0-47.0); Immature Granulocyte Absolute 0.04 K/mm3 (0.00-0.031); Lymphocytes Absolute Auto 1.56 K/mm3 (0.9-3.2); Lymphocytes Percent Auto 38.6 % (18.3-44.2); Mean Corpuscular Hemoglobin 31.4 pg (26-34); Mean Corpuscular Volume 104.7 fl (80-100); Monocytes Absolute Auto 0.3 K/mm3 (0.1-0.6); Monocytes Percent Auto 7.4 % (2.6-8.5); Neutrophils Absolute Auto 2.1 K/mm3 (1.3-6.7); Platelet Count Result 78 k/mm3 (150-375); Red Blood Count 2.55 M/mm3 (4.2-5.4); Red Cell Distribution Width 21.3 % (11.5-14.5)
[2021-11-05 13:50] LABS: Alanine Aminotransferase 16 U/L (6-35); Alkaline Phosphatase 55 U/L (38-126); Anion Gap 2 mmol/L (8-16); Aspartate Amino Transferase 63 U/L (14-36); Bilirubin,Total 0.4 mg/dL (0.2-1.3); Calcium 7.7 mg/dL (8.4-10.2); Carbon Dioxide 26 mmol/L (22-30); Chloride 109 mmol/L (98-107); Estimated CRCL calculation 125 ml/min; Estimated Glomerular Filt Rate > 60; Glucose 99 mg/dL (65-110); Sodium 137 mmol/L (137-145)
[2021-11-05 14:28] LABS: Blood Urea Nitrogen < 2 mg/dL (7-17)
--- NOTE | 2021-11-05 17:21 | PC.NURSE ---
This patient, Kesha Glez, was transferred to [facility] on 11/05/21 at 1715. Personal belongings sent with patient. Report given to Sylvia JIANG. Appropriate documentation sent with patient.
[2021-11-05 18:44] LABS: IFOB Positive Control Positive; Immunochemical Fecal Occult Bl Positive (N)
[2021-11-06] MEDS: chlordiazePOXIDE (*CRX) 25 MG CAPSULE PO ×2 (05:03→14:04)
[2021-11-06 06:00] VITALS: BP 136/79; PULSE 70; RESP 18; TEMP 36.3; O2SAT 100
[2021-11-06] MEDS: THIAMINE HCL 100 MG TABLET PO (08:22)
[2021-11-06] MEDS: FOLIC ACID 1 MG TABLET PO (08:22)
[2021-11-06] MEDS: NICOTINE (*PBKC) 14 MG PATCH 1 PATCH TRANSDERM (08:22)
[2021-11-06] MEDS: busPIRone HCL 5 MG TABLET 15 MG PO (08:22)
--- NOTE | 2021-11-06 09:23 | PM.IMPN ---
Progress Note: A&P Assessment and Plan (1) Alcohol related seizure: Code(s): R56.9 - Unspecified convulsions Status: Acute Assessment and Plan: Patient currently on Librium 25 q.8 hours, lorazepam 1 mg p.r.n. Last CIWA at 0800 was 1. Last PRN dose of ativan was yesterday at 0900. Patient had seizure leading to admission, likely due to combination of alcohol abuse/withdrawal and or cocaine abuse. Given the patient's heavy alcohol use and evidence of tremors and elevated CIWA score alcohol withdrawal is highly likely. PT spoken w/ care coord and is willing to pursue outpatient treatment. CIWA scores have been ordered every 4 hours Seizure precautions Continue librium scheduled/ ativan PRN for CIWA>8 Care coordination consult for opt treatment. (2) Positive fecal occult blood test: Code(s): R19.5 - Other fecal abnormalities Status: Acute Assessment and Plan: Fecal occult blood test positive yesterday. She denies chills, hallucinations, abdominal pain, current cravings for alcohol, palpitations, tremor, or seizures. She reports that she has numerous bouts of diarrheal stools daily for the last 3-4 months. Her diarrhea worsened when she started drinking more heavily. I have consulted GI do appreciate their recommendations. Continue to monitor with daily labs. GI consult Start patient on Protonix 40 IV BID. (3) Chronic anemia: Code(s): D64.9 - Anemia, unspecified Status: Acute Assessment and Plan: H&H is stable today at 8/26. Current pancytopenia, with macrocytosis likely due to chronic alcohol abuse. Iron is high, TIBC normal, ferritin normal, folate and B12 normal. Albumin 2.9. RUQ ultrasound shows 1. Diffuse hepatic steatosis. Fecal occult blood positive. Pt not currently on blood thinners. Have consulted GI we do appreciate their recommendations at this time. Continue patient on thiamine and folate today. (4) Alcohol intoxication: Qualifiers: Complication of substance-induced condition: with unspecified complication Qualified Code(s): F10.929 - Alcohol use, unspecified with intoxication, unspecified Code(s): F10.929 - Alcohol use, unspecified with intoxication, unspecified Status: Acute Assessment and Plan: RESOLVED (5) Cocaine use: Code(s): F14.90 - Cocaine use, unspecified, uncomplicated Status: Acute Assessment and Plan: Last use 11/02/2021. (6) Hypokalemia: Code(s): E87.6 - Hypokalemia Status: Acute Assessment and Plan: RESOLVED (7) Acute kidney injury: Code(s): N17.9 - Acute kidney failure, unspecified Status: Acute Assessment and Plan: RESOLVED. Patient euvolemic, BUN/Cr normal, can D/C IVF. Subjective Date/time seen: 11/06/21 09:23 Interval history: 36-year-old female with history significant for alcohol use with withdrawal seizures, cocaine use, chronic anemia, who presents to us after a seizure with a fall. Her diarrhea is improving here. She denies chills, hallucinations, abdominal pain, current cravings for alcohol, palpitations, tremor, or seizures. She reports that she has numerous bouts of diarrheal stools daily for the last 3-4 months. Her diarrhea worsened when she started drinking more heavily. She reports she used to her have occasional crampy lower abdominal pain prior to her diarrheal episodes but has not had any abdominal pain in months. In the past few months she has elected to drink alcohol instead of eating if she has the choice. Ethyl alcohol upon admission was 158, and she was positive for cocaine and cannabinoids. Review of Systems Review of Systems: All systems reviewed & are unremarkable except as noted in HPI and below Objective Data Vital Signs Vital Signs: Vital Signs - 24 hr 11/05/21 10:00 11/05/21 12:00 11/05/21 16:51 Temperature 98.1 F Pulse Rate 94 82 82 Respiratory Rate 20 Blood Pressur
[2021-11-06] MEDS: PANTOPRAZOLE SODIUM IV 40 MG VIAL IV PUSH (10:18)
--- NOTE | 2021-11-06 13:17 | WPDGICN ---
Assessment and Plan Assessment and plan (1) Alcohol related seizure: Code(s): R56.9 - Unspecified convulsions Status: Acute Assessment and Plan: She states that she has been lucid since admission. There has been apparently no seizure activity or significant tremulousness noted the last few days. She denies prior hospitalizations for alcohol-related seizures. She expresses her desire to stay away from alcohol but she knows that it will be a struggle for her. From my perspective would be reasonable to discharge her today. (2) Chronic anemia: Code(s): D64.9 - Anemia, unspecified Status: Acute Assessment and Plan: Her hemoglobin is stable and appears to be her normal range. I told her that we would probably repeat a stool Hemoccult somewhere down the line but certainly we would hope and expect that her blood counts will improve as she stays away from alcohol. (3) Positive fecal occult blood test: Code(s): R19.5 - Other fecal abnormalities Status: Acute Assessment and Plan: There is no history of bleeding. I told her that the Hemoccult could also be positive from mucosal injury due to alcohol and/or NSAIDs which she does use from time to time. I do not think that there is a need for endoscopic examination at this particular time. GI Consult Note Consult date/time: 11/06/21 13:17 HPI: Kesha Glez is a 36 year old female who was admitted several days ago when she was observed at home by her boyfriend to have when apparently was seizure activity. She had been drinking quite heavily for the past 6 months. She states that she has been drinking since she was a teenager, but for the past several months she has been drinking all day long and not consuming any food to speak of. That caused her stools to be loose but now that she has stopped drinking bowel movements are normal. She denies seeing blood her stools. She states she has been chronically anemic. A stool Hemoccult test done here was positive. His serum ferritin however is above normal. She had been drinking up to 1/5 of alcohol per day but always at least a pt. Apparently she drinks throughout the day even the morning to calm her nerves. She states that her appetite has been good think she just ate a good breakfast and lunch today with no ill effects. She denies any chronic abdominal pain weight loss or other recent gastrointestinal symptoms. She has never been told she had liver disease; she denies any history of jaundice or hepatitis. She had used illicit drugs in the past, specifically cocaine. Liver function studies actually are normal here. Hemoglobin is 10.1. MCV is elevated. Folic acid level B12 levels are normal. Her serum iron is 177. Review of Systems Review of Systems: All systems reviewed & are unremarkable except as noted in HPI and below PMFSH Past Medical History Medical History Alcohol abuse Anxiety Chronic anemia ROSEANN II (cervical intraepithelial neoplasia II) History of x2 Vaginal delivery x 2 Surgical History Surgical History H/O LEEP (10/2020) Family History Family History Sibling Alcoholism Social History Social History Social History: She lives at home with her boyfriend and 2 daughters. Her daughters are 13 and 16 years of age. 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 She has smoked half pack of cigarettes since she was 16. She occasionally will snort cocaine. Her last use was on the . Her boyfriend has a history of drug abuse. She denies any IV drug use. She drinks between a pint to a 5th of alcohol a day. Code status: Full code Surrogate decision maker: Mother Smoking packs per day: 0.5 Smoking cigarettes per day: 10.0
[2021-11-06 14:00] VITALS: BP 139/90; PULSE 107; RESP 18; TEMP 36.9; O2SAT 100
--- NOTE | 2021-11-06 14:14 | PM.DS ---
DS: Admitting Diagnosis Discharge Date 11/06/2021 1600 Admitting Diagnosis Acute alcohol intoxication with seizure DS: Discharge Diagnosis Discharge Diagnosis (1) Alcohol related seizure: Code(s): R56.9 - Unspecified convulsions Status: Acute Assessment and Plan: Patient currently on Librium 25 q.8 hours, lorazepam 1 mg p.r.n. Last several CIWAs have been 1 or lower. Patient denies tremors, nausea, chest pain, diaphoresis, hallucinations or anxiety. She seems significantly improved today. Last PRN dose of ativan was yesterday at 0900. Patient had seizure leading to admission, likely due to combination of alcohol abuse/withdrawal and or cocaine abuse. Discussed extensively with the patient the option of initiating a Librium taper for her verses continuing to drink alcohol. Explained that it was dangerous and not advised to take Librium while drinking alcohol. Patient acknowledged understanding of this states she wishes to proceed with the Librium taper and is going to choose to not drink alcohol anymore. PT spoken w/ care coord and is willing to pursue outpatient treatment. Continue Librium taper on discharge. Provided return precautions and warnings about combining Librium and alcohol to the patient. Patient will follow-up with her primary care provider going forward. (2) Positive fecal occult blood test: Code(s): R19.5 - Other fecal abnormalities Status: Acute Assessment and Plan: Fecal occult blood test positive yesterday. She denies chills, hallucinations, abdominal pain, current cravings for alcohol, palpitations, tremor, or seizures. She reports that she has numerous bouts of diarrheal stools daily for the last 3-4 months. Her diarrhea worsened when she started drinking more heavily. I have consulted GI do appreciate their recommendations. H&H has been stable since her admission. GI did consult, which we appreciate and advised patient will not need colonoscopy or endoscopy at this time. She may coronary for outpatient procedures as needed. He also advised alcohol cessation. Will start patient on PPI upon discharge. (3) Chronic anemia: Code(s): D64.9 - Anemia, unspecified Status: Acute Assessment and Plan: H&H is stable today at 02/15. Current pancytopenia, with macrocytosis likely due to chronic alcohol abuse. Iron is high, TIBC normal, ferritin normal, folate and B12 normal. Albumin 2.9. RUQ ultrasound shows 1. Diffuse hepatic steatosis. Fecal occult blood positive. Pt not currently on blood thinners. Have consulted GI we do appreciate their recommendations at this time. Continue patient on thiamine and folate after discharge Repeat CBC in 4-6 weeks of primary care provider Discussed alcohol cessation as this well likely resolve her issues with her pancytopenia. (4) Alcohol intoxication: Qualifiers: Complication of substance-induced condition: with unspecified complication Qualified Code(s): F10.929 - Alcohol use, unspecified with intoxication, unspecified Code(s): F10.929 - Alcohol use, unspecified with intoxication, unspecified Status: Acute Assessment and Plan: RESOLVED (5) Cocaine use: Code(s): F14.90 - Cocaine use, unspecified, uncomplicated Status: Acute Assessment and Plan: Last use 11/02/2021. (6) Hypokalemia: Code(s): E87.6 - Hypokalemia Status: Acute Assessment and Plan: RESOLVED (7) Acute kidney injury: Code(s): N17.9 - Acute kidney failure, unspecified Status: Acute Assessment and Plan: RESOLVED. Patient euvolemic, BUN/Cr normal, can D/C IVF. DS: Summary Hospital Course Reason for hospitalization: Acute alcohol withdrawal with seizure Hospital Course: See above for full hospital course Status at Discharge Overall status at discharge: patient is progressing back to baseline Time Spent with Patient Time attestation: Total time spent
[2021-11-06 14:23] LABS: Basophils Percent Auto 0.6 % (0.2-1.2); Eosinophils Absolute Auto 0.1 K/mm3 (0-0.3); Eosinophils Percent Auto 1.7 % (0-4.4); Hematocrit 30.7 % (37.0-47.0); Hemoglobin 9.3 g/dL (12.0-15.0); Immature Granulocyte Absolute 0.08 K/mm3 (0.00-0.031); Immature Granulocyte Percent A 1.7 % (0-0.5); Immature Platelet Fraction Pct 6.5 % (0.9-11.2); Lymphocytes Absolute Auto 1.83 K/mm3 (0.9-3.2); Mean Corpuscular HGB Conc 30.3 g/dl (32-36); Mean Corpuscular Volume 105.5 fl (80-100); Mean Platelet Volume 10.9 fl (7.4-10.4); Monocytes Absolute Auto 0.4 K/mm3 (0.1-0.6); Monocytes Percent Auto 8.7 % (2.6-8.5); Neutrophils Absolute Auto 2.3 K/mm3 (1.3-6.7); Neutrophils Percent Auto 48.3 % (45.5-73.1); Platelet Count Result 123 k/mm3 (150-375); Red Blood Count 2.91 M/mm3 (4.2-5.4); White Blood Count 4.7 K/mm3 (4.5-10.0)
[2021-11-06 14:38] LABS: Alanine Aminotransferase 19 U/L (6-35); Alkaline Phosphatase 57 U/L (38-126); Anion Gap 7 mmol/L (8-16); Aspartate Amino Transferase 70 U/L (14-36); Bilirubin,Total 0.4 mg/dL (0.2-1.3); Blood Urea Nitrogen 4 mg/dL (7-17); Calcium 8.8 mg/dL (8.4-10.2); Carbon Dioxide 23 mmol/L (22-30); Chloride 107 mmol/L (98-107); Estimated CRCL calculation 109 ml/min; Estimated Glomerular Filt Rate > 60; Glucose 100 mg/dL (65-110); Potassium 4.7 mmol/L (3.4-5.0); Sodium 137 mmol/L (137-145)
== END 2021-11-06 15:20 | disposition home or self-care (01) ==
LOC: ANHED 18:41 → ANHIMU 20:32 → ANH3MEDSUR 11-06 14:29 → ANHIMU 11-07 13:27
PROVIDERS: Internal Medicine; Student in an Organized Health Care Education/Training Program; Admitting Provider Student in an Organized Health Care Education/Training Program; Emergency Provider Nurse Practitioner Family; PCP Family Medicine Adolescent Medicine; Visit Provider Internal Medicine
DX: R56.9 Unspecified convulsions (principal); F10.229 Alcohol dependence with intoxication, unspecified; E87.2 Acidosis; Y90.6 Blood alcohol level of 120-199 mg/100 ml; F14.10 Cocaine abuse, uncomplicated; K52.9 Noninfective gastroenteritis and colitis, unspecified; D64.9 Anemia, unspecified; R19.5 Other fecal abnormalities; E87.6 Hypokalemia; N17.9 Acute kidney failure, unspecified; F41.9 Anxiety disorder, unspecified; F17.210 Nicotine dependence, cigarettes, uncomplicated; S90.31XA Contusion of right foot, initial encounter; S50.11XA Contusion of right forearm, initial encounter; S30.0XXA Contusion of lower back and pelvis, initial encounter; X58.XXXA Exposure to other specified factors, initial encounter; Z88.0 Allergy status to penicillin
CPT/HCPCS: 36415; 36569; 70450; 72125; 73630; 76705; 80053; 80074; 80307; 81001; 81025; 82274; 82607; 82728; 82746; 83540; 83550; 83690; 83735; 84100; 84443; 84484; 85025; 85027; 85055; 85610; 85730; 87086; 87147; 87181; 87186; 93005; 96361; 96365; 96366; 96368; 96375; 96376; 99285; A9270; C1751; C9113; G0378; J0131; J2060; J3411; J3475; J7030

== ENCOUNTER 2023-02-13 10:39 | Inpatient (IN) | payer BC, SELFPAY ==
[2023-02-13] VITALS (9 sets, daily range): BP systolic 115–162; BP diastolic 80–113; PULSE 87–110; RESP 15–20; TEMP 36.6–37.1; O2SAT 92–100
--- NOTE | ~2023-02-13 | XR_ITS ---
EXAMINATION: XR chest 2V 02/13/2023 12:49 INDICATION: Cough and shortness of breath PROCEDURE: 2 view chest COMPARISON: Comparison to multiple prior studies sequentially, with oldest reviewed study dated 02/19. FINDINGS: The lungs are clear. The cardiomediastinal silhouette is within normal limits. There are no pleural effusions. There is no pneumothorax suspected. IMPRESSION: 1: NO ACUTE CARDIOPULMONARY DISEASE. Reviewed, dictated and finalized at location L.
--- NOTE | ~2023-02-13 | CT_ITS ---
EXAMINATION: CT abdomen pelvis w con INDICATION: Generalized abdominal pain and vomiting TECHNIQUE: Computed tomographic images of the abdomen and pelvis were obtained after the administrati on of 100 cc of Omnipaque 350 intravenous contrast. The dose-length product (DLP) was 683.08 mGy-cm. Automated exposure control and iterative reconstruction technique were employed. COMPARISON: None available FINDINGS: A calcified nodule of the right lower lobe is consistent with old granulomatous disease. Th e heart size is normal. The liver is diffusely low in attenuation when compared with the spleen, cons istent with hepatic steatosis. There is a 7 mm focus of enhancement in the right hepatic lobe which c ould reflect focal fatty sparing or a flash filling hemangioma. The spleen, pancreas, gallbladder, an d adrenal glands are normal. The kidneys are unremarkable. No pathologically enlarged abdominal or pe lvic lymph nodes are identified. No free intraperitoneal gas or evidence of bowel obstruction. There is widespread submucosal fat deposition of the colon which is nonspecific but can be seen in the sett ing of inflammatory bowel disease or obesity. There is mild lumbar spondylosis at L5-S1. IMPRESSION: 1. Diffuse hepatic steatosis. Reviewed, dictated and finalized at location A.
--- NOTE | 2023-02-13 11:54 | ED.ALCOHOL ---
HPI - Alcohol General Chief Complaint: Alcohol Stated Complaint: ETOH withdrawal Time Seen by Provider: 02/13/23 11:51 History of Present Illness HPI narrative: Patient is a 37-year-old female with history of anxiety, alcohol use disorder here with multiple symptoms. Patient notes that she drinks at least a fifth of alcohol a day, has been a daily drinker for the last 4 years, last sobriety was after a hospitalization last year for about 53 days. She notes that she believes she is in alcohol withdrawal now. her last drink was around 10:00 a.m. this morning but she vomited shortly after. She has been having nausea and vomiting for the last 3 weeks which have caused her to start going through withdrawals most days, which causing her to wake at night to drink alcohol to ensure she does not withdraw. She does have a history of prior withdrawal seizures, no recent seizures. She notes that the nausea and vomiting associated with bilateral flank pain which radiated into her anterior abdomen in suprapubic region. She has had some associated diarrhea. She has a small amount of vaginal discharge, sexually active with 1 partner, no regular condom use. She does not believe she is at risk for STI. She additionally notes the feeling of a panic attack for the last 1 month which includes intermittent chest pains, shortness of breath and anxiety. These symptoms seem to come and go. No recent trauma, no recent travel, no prior PE/DVT. No fever or chills. Related Data Home Medications Medication Instructions Recorded Confirmed No Home Medications 02/13/23 02/13/23 Allergies Allergy/AdvReac Type Severity Reaction Status Date / Time Penicillins Allergy Severe swelling Verified 10/24/22 14:47 clindamycin Allergy Intermediate Swelling Verified 10/24/22 14:47 cefaclor Allergy Unknown Swelling Verified 10/24/22 14:47 cephalexin Allergy Unknown UNKNOWN Verified 10/24/22 14:47 tramadol AdvReac Severe Mirgraines Verified 10/24/22 14:47 Review of Systems Review of Systems: All systems reviewed & are unremarkable except as noted in HPI and below PMFSH Past Medical History Medical History (Updated 02/13/23 @ 18:01 by Tsering Vigil PA-C) Alcohol abuse Alcohol related seizure Anxiety Chronic anemia ROSEANN II (cervical intraepithelial neoplasia II) Cocaine use History of x2 Vaginal delivery x 2 Surgical History Surgical History (Updated 02/13/23 @ 18:01 by Tsering Vigil PA-C) History of loop electrical excision procedure (LEEP) (10/2020) Family History Family History Sibling Alcoholism Social History Social History Social History: She lives at home with her boyfriend and 2 daughters. Her daughters are 13 and 16 years of age. 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 She has smoked half pack of cigarettes since she was 16. She occasionally will snort cocaine. Her last use was on the . Her boyfriend has a history of drug abuse. She denies any IV drug use. She drinks between a pint to a 5th of alcohol a day. Code status: Full code Surrogate decision maker: Mother Smoking packs per day: 0.5 Smoking cigarettes per day: 10.0 Years smoked: 20 Smoking pack-years: 10.00 Smoking status: Current every day smoker Second hand tobacco smoke exposure: No Alcohol intake: current Drinks per week: 4 Substance use: current Substance use type: marijuana and crack/cocaine Other substance usage details: 1 pint to 1 fifth of vodka daily. Last use: Cocaine 11/02/21 Lack of Transportation: No Lack of Food: Never True Current Housing: I Have Housing Concerned About Future Housing: No Difficulty Paying Gas/Electric Bills: No Difficulty Paying for Meds: No Currently Unemployed: No Education: Don't Know Difficulty w/ Childcare or Family Care: No Living arrangements: wi
--- NOTE | 2023-02-13 12:08 | ECG_ITS ---
Measurements Intervals [place] Rate: 82 P: 41 IA: 172 QRS: 48 QRSD: 94 T: 29 QT: 388 QTc: 454 Interpretive Statements SINUS RHYTHM COMPARED TO ECG 11/03/2021 16:22:31 THE RATE IS SLOWER AND PVCS ARE ABSENT Electronically Signed On 02-13-2023 15:40:12 CDT by Josselyn Gibson M.D.
[2023-02-13] MEDS: diazePAM INJ (*CRX) 10 MG/2 ML SYRINGE 5 MG IV PUSH ×2 (12:35→15:06)
[2023-02-13] MEDS: ONDANSETRON INJ 4 MG/2 ML VIAL IV PUSH ×2 (12:35→14:34)
[2023-02-13 12:38] LABS: Basophils Absolute Auto 0.1 K/mm3 (0.0-0.1); Eosinophils Percent Auto 0.7 % (0-4.4); Hemoglobin 9.6 g/dL (12.0-15.0); Immature Granulocyte Absolute 0.04 K/mm3 (0.00-0.031); Immature Granulocyte Percent A 0.7 % (0-0.5); Lymphocytes Absolute Auto 1.39 K/mm3 (0.9-3.2); Lymphocytes Percent Auto 23.3 % (18.3-44.2); Mean Corpuscular Hemoglobin 28.6 pg (26-34); Mean Corpuscular Volume 95.2 fl (80-100); Mean Platelet Volume 10.1 fl (7.4-10.4); Monocytes Absolute Auto 0.7 K/mm3 (0.1-0.6); Monocytes Percent Auto 10.9 % (2.6-8.5); Neutrophils Absolute Auto 3.8 K/mm3 (1.3-6.7); Neutrophils Percent Auto 63.4 % (45.5-73.1); Platelet Count Result 198 k/mm3 (150-375); Red Blood Count 3.36 M/mm3 (4.2-5.4); Red Cell Distribution Width 20.2 % (11.5-14.5)
[2023-02-13 12:49] LABS: Ethanol < 10 mg/dL (<10)
[2023-02-13 12:51] LABS: Alanine Aminotransferase 51 U/L (6-35); Alkaline Phosphatase 147 U/L (38-126); Anion Gap 7 mmol/L (8-16); Aspartate Amino Transferase 220 U/L (14-36); Bilirubin,Total 1.2 mg/dL (0.2-1.3); Blood Urea Nitrogen 3 mg/dL (7-17); Calcium 9.1 mg/dL (8.4-10.2); Carbon Dioxide 27 mmol/L (22-30); Chloride 101 mmol/L (98-107); Estimated CRCL calculation 112 ml/min; Estimated Glomerular Filt Rate > 60; Glucose 109 mg/dL (65-110); Lipase 164 U/L (23-300); Magnesium 1.4 mg/dL (1.6-2.3); Potassium 3.5 mmol/L (3.4-5.0); Sodium 135 mmol/L (137-145)
[2023-02-13] MEDS: SODIUM CHLORIDE 0.9% IV 1,000 ML 999 ML IV CONT (12:54)
[2023-02-13 13:03] LABS: Troponin I < 0.012 ng/mL (0.000-0.034)
[2023-02-13 13:06] LABS: D Dimer 0.37 ug/mL (<0.48)
[2023-02-13 13:13] LABS: SARS-CoV-2 RNA PCR Negative (Negative)
[2023-02-13 14:57] LABS: Appearance Urine Cloudy (Clear); Bacteria Urine Rare /hpf; Bilirubin Urine 2+ (Negative); Blood Urine Negative (Negative); Glucose Urine UA Negative (Negative); Ketones Urine Negative (Negative); Leukocyte Esterase Ur 2+ LEU/UL (Negative); Mucus Urine Present /lpf; Need Manual Microscopic Reviewed; Nitrate Urine Positive (Negative); Protein Urine 1+ mg/dL (Negative); Specific Grav Ur 1.028 (1.001-1.035); Squamous Epithelial Cell Urine Occasional /hpf (Few); WBC Urine >100 /hpf; pH Urine 6.5 (5.0-9.0)
[2023-02-13 14:59] LABS: Add Urine Microscopic? YES; Color Urine Dark Yellow (Yellow)
[2023-02-13] MEDS: MAGNESIUM SULF 2 GM/WATER 50ML 2 GM/50 ML BAG IVPB (15:06)
--- NOTE | 2023-02-13 16:20 | ADMGEN ---
This patient, Kesha Glez, was admitted to Intensive Care Unit-8. Patient/family oriented to hospital policies and general routines including ID bracelet, bed and alarms, visiting hours, pain management, procedures, bathroom and other care routines, personal items, smoking policy, room service/diet, and visiting hours. Information on how to activate the Rapid Response Team has been discussed. Patient/Family are encouraged to report perceived risks to care and to ask questions if they do not understand what they are told or what they should do.
[2023-02-13 17:19] LABS: Glucose Point of Care 99 mg/dl (65-105)
[2023-02-13] MEDS: LORazepam INJ (*CRX) 2 MG/ML VIAL IV PUSH (17:23)
--- NOTE | 2023-02-13 17:59 | PM.IMHP ---
H&P: HPI History of Present Illness Date/Time: 02/13/23 17:45 Chief Complaint: Nausea and vomiting. Narrative: This is a 37-year-old female with history of alcohol abuse, alcohol withdrawal seizures, cocaine use, and depression who presented to the emergency department for evaluation of nausea and vomiting. The patient provides the following history. She has not been feeling well for the last several weeks and reports intermittent but almost daily nausea and vomiting. It is to the point where she has not been able to hold down her usual 5th of vodka a day and she thinks withdrawal is playing a part in her symptoms as well. As a rule she starts having shakes and anxiety within a couple of hours after her last drink and she came in today for increasing anxiety and tremors after not having been able to hold down any alcohol since 10:00. With further questioning she endorses epigastric and vague upper abdominal discomfort which she has difficulties describing though she thinks it may be due to indigestion. She has no known history of GERD or peptic ulcers. She has not noticed any blood in her vomit or stools. In the ED her CIWA score was greater than 15, she received 10 mg of diazepam with some improvement, and she is being admitted in this setting for close monitoring, alcohol withdrawal syndrome, and further evaluation of ongoing nausea and vomiting. Review of Systems Review of Systems: Twelve systems were reviewed. She has not had any recent seizure activity. She denies hallucinations. No chest pain or shortness of breath. She denies significant bloating and belching. No hematemesis, melena, or hematochezia. Except as documented, all other systems were reviewed and are negative. [facility] Past Medical History Medical History (Updated 02/14/23 @ 00:49 by Tsering Vigil PA-C) Alcohol abuse Alcohol related seizure Anxiety Chronic anemia ROSEANN II (cervical intraepithelial neoplasia II) Cocaine use History of x2 Vaginal delivery x 2 Surgical History Surgical History (Updated 02/13/23 @ 18:01 by Tsering Vigil PA-C) History of loop electrical excision procedure (LEEP) (10/2020) Family History Family History Sibling Alcoholism Social History Social History (Updated 02/14/23 @ 14:13 by Tsering Vigil PA-C) Social History: She lives at home with her boyfriend and 2 daughters. Her daughters are 13 and 16 years of age. 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 She has smoked half pack of cigarettes since she was 16. She occasionally will snort cocaine. Her boyfriend has a history of drug abuse. She denies any IV drug use. She drinks between a pint to a 5th of alcohol a day. Code status: Full code Surrogate decision maker: Mother Smoking packs per day: 0.5 Smoking cigarettes per day: 10.0 Years smoked: 20 Smoking pack-years: 10.00 Smoking status: Current every day smoker Second hand tobacco smoke exposure: No Alcohol intake: current Drinks per week: 4 Substance use: current Substance use type: marijuana and crack/cocaine Other substance usage details: 1 pint to 1 fifth of vodka daily. Last use: Cocaine 11/02/21 Lack of Transportation: No Lack of Food: Never True Current Housing: I Have Housing Concerned About Future Housing: No Difficulty Paying Gas/Electric Bills: No Difficulty Paying for Meds: No Currently Unemployed: No Education: Don't Know Difficulty w/ Childcare or Family Care: No Living arrangements: with family Occupation/Education: occupation Spiritual care concerns: No Agree to blood products: Yes Meds Home Medications and Allergies Home Medications Medication Instructions Recorded Confirmed Type No Home Medications 02/13/23 02/13/23 History Allergies Allergy/AdvReac Type Severity Reaction Status Date / Time Penicillins Allergy Severe swelling Verifi
[2023-02-14] VITALS (11 sets, daily range): BP systolic 107–131; BP diastolic 59–106; PULSE 74–107; RESP 10–21; TEMP 36.2–37.3; O2SAT 97–100
[2023-02-14] MEDS: LORazepam INJ (*CRX) 2 MG/ML VIAL IV PUSH ×2 (01:46→15:11)
[2023-02-14] MEDS: SODIUM CHLORIDE 0.9% IV 1,000 ML 100 ML IV CONT (02:05)
[2023-02-14 04:36] LABS: Hematocrit 28.3 % (37.0-47.0); Hemoglobin 8.4 g/dL (12.0-15.0); Mean Corpuscular HGB Conc 29.7 g/dl (32-36); Mean Corpuscular Hemoglobin 28.3 pg (26-34); Mean Corpuscular Volume 95.3 fl (80-100); Mean Platelet Volume 10.2 fl (7.4-10.4); Platelet Count Result 161 k/mm3 (150-375); Red Blood Count 2.97 M/mm3 (4.2-5.4); Red Cell Distribution Width 20.4 % (11.5-14.5); White Blood Count 5.6 K/mm3 (4.5-10.0)
[2023-02-14 04:48] LABS: Alanine Aminotransferase 40 U/L (6-35); Albumin Level 3.2 g/dL (3.5-5.1); Alkaline Phosphatase 112 U/L (38-126); Anion Gap 3 mmol/L (8-16); Aspartate Amino Transferase 145 U/L (14-36); Blood Urea Nitrogen 6 mg/dL (7-17); Calcium 8.4 mg/dL (8.4-10.2); Carbon Dioxide 28 mmol/L (22-30); Chloride 104 mmol/L (98-107); Estimated CRCL calculation 112 ml/min; Estimated Glomerular Filt Rate > 60; Glucose 98 mg/dL (65-110); Magnesium 2.2 mg/dL (1.6-2.3); Potassium 3.5 mmol/L (3.4-5.0); Sodium 135 mmol/L (137-145)
[2023-02-14] MEDS: PANTOPRAZOLE SODIUM IV 40 MG VIAL IV PUSH (08:39)
[2023-02-14] MEDS: FOLIC ACID 1 MG TABLET PO (08:39)
[2023-02-14] MEDS: THIAMINE HCL 100 MG TABLET PO (08:39)
--- NOTE | 2023-02-14 11:42 | PM.IMPN ---
Progress Note: A&P Assessment and Plan (1) Alcohol withdrawal syndrome: Code(s): F10.939 - Alcohol use, unspecified with withdrawal, unspecified Status: Acute (2) Gastritis: Code(s): K29.70 - Gastritis, unspecified, without bleeding Status: Acute (3) Abnormal urinalysis: Code(s): R82.90 - Unspecified abnormal findings in urine Status: Acute (4) Transaminitis: Code(s): R74.01 - Elevation of levels of liver transaminase levels Status: Acute (5) Hypomagnesemia: Code(s): E83.42 - Hypomagnesemia Status: Acute Plan The patient presented to the emergency department for evaluation of nausea, vomiting, and alcohol withdrawal symptoms as detailed in HPI. Labs, imaging, EKG, and all reports were personally reviewed. She reports intermittent but ongoing issues with nausea and vomiting for last 3 weeks and she has not been able to hold down her usual 5th of vodka a day. Due to her excessive drinking, she may very well have esophagitis, gastritis, or even an ulcer which are causing her symptoms. She has been started on Protonix and Zofran is available as needed. Depending on how she responds overnight, she may benefit from a GI consultation. Her magnesium has been replaced and will be monitored. Continue IV fluid rehydration. LFTs are chronically elevated, more so today which is likely due to alcoholic hepatitis. CT of the abdomen and pelvis showed diffuse hepatic steatosis without any acute findings. Initiate CIWA protocol. Urinalysis is abnormal though she has no symptoms of UTI. Thus will hold on antibiotics, pending culture. Her home medications will be reviewed and resumed as appropriate. Subjective Date/time seen: 02/14/23 11:42 Interval history: No complaints No seizure activity Exam Narrative: General: Mildly ill-appearing female supine in bed in no acute distress. Weight: 93 kg. BMI: 27.8. HEENT: PERRL, EOMI. Sclera anicteric. Tacky mucous membranes. Neck: Supple. Respiratory: Lungs are clear to auscultation bilaterally. Cardiovascular: Regular rate and rhythm with S1-S2. Gastrointestinal: Abdomen is soft and nondistended with positive bowel sounds. She is somewhat tender to deeper palpation epigastric region. Skin: Warm and dry. Extremities: No cyanosis, clubbing, or edema. Radial and pedal pulses intact. Neurological: Alert and oriented x4. Cranial nerves 2-12 are grossly intact. Speech is clear. No facial asymmetry. Very fine tremors of the fingers. No gross focal deficits to casual conversation. Psychiatric: Pleasant and cooperative. Appropriate mood and affect. She does not appear anxious. Objective Data Vital Signs Vital Signs: Vital Signs - 24 hr 02/13/23 13:11 02/13/23 15:08 02/13/23 16:49 Temperature Pulse Rate 87 93 87 Respiratory Rate 16 18 Blood Pressure 116/84 115/88 Pulse Oximetry 100 99 Oxygen Delivery 02/13/23 16:51 02/13/23 16:00 02/13/23 18:00 Temperature 98.8 F Pulse Rate 88 88 110 H Respiratory Rate 15 15 Blood Pressure 162/113 H Pulse Oximetry 92 92 Oxygen Delivery Room Air 02/13/23 18:00 02/13/23 20:00 02/13/23 20:00 Temperature Pulse Rate 107 H 109 H Respiratory Rate 17 Blood Pressure 133/80 121/93 H Pulse Oximetry 96 Oxygen Delivery 02/13/23 20:00 02/13/23 20:00 02/13/23 22:00 Temperature 98.7 F Pulse Rate 107 H 109 H 97 Respiratory Rate 17 20 Blood Pressure 121/93 H Pulse Oximetry 96 97 Oxygen Delivery Room Air 02/13/23 22:00 02/14/23 00:00 02/14/23 00:00 Temperature Pulse Rate 94 90 Respiratory Rate 18 Blood Pressure 121/93 H 121/93 H Pulse Oximetry 97 Oxygen Delivery 02/14/23 00:00 02/14/23 00:00 02/14/23 02:00 Temperature 99 F Pulse Rate 94 90 83 Respiratory Rate 18 17 Blood Pressure 122/71 Pulse Oximetry 97 99 Oxygen Delivery Room Air 02/14/23 04:00 02/14/23 04:00 02/14/23 04:00 Temperature Pulse Rate 95 82
--- NOTE | 2023-02-14 15:54 | PC.NURSE ---
This patient, Kesha Glez, was transferred to [facility] on 02/14/23 at 1540. Personal belongings sent with patient. Report given to Kassandra. Appropriate documentation sent with patient.
--- NOTE | 2023-02-14 17:08 | PC.NURSE ---
Pt is A&O4 female. Pt has asked to leave the unit to smoke. Pt was told that this is a no smoking campus. Pt was walking in the halls. CHEMICAL PROCESS OPERATOR informed the pt that she had to stay on the unit. Pt left unit, charge nurse was present at time. Security and Silk Screener were notified. Pt was found in main lobby trying to leave. Pt was informed by unit assembler that if she left she would have to enter in through the ED again. Pt came back to floor. Pt was once again told that she could not leave the unit. Pt states that she made a wrong turn but didn't go too far. Pt door to remain open. Pt room across from the nurses station. Pt will be closely monitored.
--- NOTE | 2023-02-14 21:23 | PC.NURSE ---
Spoke to pt and she wishes to leave. She stated that she is ready and that she does not want to stay. I explained to the patient the importance of staying and that we are here to help her and that it would be better for her to stay. Pt stated that she wanted to leave and would leave AMA. Dr Mendez made aware of pt decision. Pt IV removed and pt left.
--- NOTE | 2023-04-03 19:26 | PM.EVENT ---
Event Note Event Note Event Note: I was notified by nurse that patient was on her way out leaving AMA.
== END 2023-02-14 21:23 | disposition left against medical advice (07) | DRG 433 ==
LOC: ANHED 14:59 → ANHICU 15:42 → ANH3MED 02-17 10:42 → ANHICU 02-17 10:42
PROVIDERS: Physician Assistant; Admitting Provider Internal Medicine; Emergency Provider Student in an Organized Health Care Education/Training Program; PCP Family Medicine Adolescent Medicine; Visit Provider Chiropractor
DX: K70.10 Alcoholic hepatitis without ascites (principal); F10.939 Alcohol use, unspecified with withdrawal, unspecified; K76.0 Fatty (change of) liver, not elsewhere classified; K29.70 Gastritis, unspecified, without bleeding; D64.9 Anemia, unspecified; E83.42 Hypomagnesemia; F17.210 Nicotine dependence, cigarettes, uncomplicated; F41.9 Anxiety disorder, unspecified; F14.90 Cocaine use, unspecified, uncomplicated; F32.A Depression, unspecified; R82.90 Unspecified abnormal findings in urine; R74.01 Elevation of levels of liver transaminase levels; Z88.0 Allergy status to penicillin; Z20.822 Contact with and (suspected) exposure to COVID-19
CPT/HCPCS: 36415; 71046; 74177; 80053; 80307; 81001; 81025; 82948; 83690; 83735; 84484; 85025; 85027; 85380; 87077; 87086; 87147; 87186; 87635; 93005; 96361; 96374; 96375; 96376; 99285; A9270; C9113; J2060; J2405; J3360; J3475; J7030; Q9967

== ENCOUNTER 2023-06-24 17:13 | Inpatient (IN) | payer BC, SELFPAY ==
--- NOTE | ~2023-06-24 | XR_ITS ---
EXAMINATION: XR chest 2V Exam Date/Time: 06/24/2023 23:45 [place] HISTORY: rib pain DIZZY NAUSEA VOMITING Comparison: 02/13/2023. RESULT: Lines, tubes, and devices: None. Lungs and pleura: Clear. Cardiomediastinal silhouette: Stable. Other: No acute osseous or upper abdominal finding. IMPRESSION: No acute cardiopulmonary process. Reviewed, dictated and finalized at location K. [employer] OF [place]
--- NOTE | ~2023-06-24 | XR_ITS ---
Portable chest x-ray Comparison: 06/24/2023 Clinical History: Shortness of breath Findings: Lungs are clear, without focal consolidation or pleural effusion. Cardiomediastinal silho uette is stable. Bones and soft tissues are unremarkable. Impression: Normal chest. Reviewed, dictated and finalized at location . SITIONAL KINDERGARTEN TEACHER Impression: Normal chest.
--- NOTE | ~2023-06-24 | MR_ITS ---
EXAMINATION: MR MRCP wo/w con/w 3D wo ind DATE: 06/27/2023 13:14 INDICATION: Pancreatitis. TECHNIQUE: Magnetic resonance imaging (MRI) of the abdomen was performed without and with 18 mL Multi Lorri intravenous contrast. Sequences included coronal T2-weighted FS FSE, coronal T2-weighted FSE, a xial T1-weighted LAVA, coronal FS FIESTA, axial dual-echo T1-weighted SPGR, coronal lava-FLEX, sagitt al T2-weighted FSE, axial T2-weighted FSE, and axial DWI. Thick-slab T2-weighted FSE images were obta ined for magnetic resonance cholangiopancreatography (MRCP). Maximum intensity projection 3-D reconst ructions of the volumetric data were created by the technologist. Postcontrast sequences included cor onal LAVA-flex and time course of axial T1-weighted LAVA. COMPARISON: Abdomen ultrasound 06/25/2023, CT abdomen and pelvis 06/25/2023 FINDINGS: ABDOMEN MRI: There are small pleural effusions. There is a small sliding hiatal hernia. There is diff use hepatic steatosis. The gallbladder is distended and contains sludge. Periportal edema is noted. T here is edema around the pancreas, consistent with acute interstitial pancreatitis. The spleen, adren al glands, and kidneys are normal. There is trace ascites. ABDOMEN MRCP: The common duct is normal and measures 3 mm. No choledocholithiasis. IMPRESSION: 1. Acute interstitial pancreatitis. 2. Diffuse hepatic steatosis. 3. Small pleural effusions. 4. Gallbladder sludge. Gallbladder distention may be secondary to fasting. Reviewed, dictated and finalized at location E. OR ANALYST
--- NOTE | ~2023-06-24 | CT_ITS ---
Clinical Indication: Elevated d-dimer, epigastric pain CT Scan of the Chest, Abdomen, and Pelvis with Contrast: Technique: Contiguous sections were acquired throughout the chest, abdomen, and pelvis after intraven ous administration of 100 cc of Omnipaque 350. Dose reduction technique was used on this scan by uti manuelaing automated exposure control and iterative reconstruction technique. The dose-length product (DL P) was 1072.77 mGy-cm. COMPARISON: 02/13/2023, 05/03/2021 Findings: There is no evidence of any significant mediastinal, hilar or axillary lymphadenopathy. The mediastin al soft tissues appear normal. No pulmonary embolus seen. No aortic aneurysm or dissection. There is no evidence of pleural or pericardial effusion. Calcified right basilar granuloma noted. 2 mm pulmonary nodule noted in the left upper lobe (axial im age 62), unchanged. There is diffuse fatty infiltration of liver. Possible gallbladder sludge, and a single tiny stone pr esent. The spleen, pancreas, adrenals and kidneys are within normal limits. No evidence of aortic an eurysm. No lymphadenopathy. No bowel obstruction or bowel wall thickening. There is no evidence to suggest acute appendicitis. Urinary bladder is unremarkable. No adnexal mass seen. No ascites. Impression: Diffuse fatty infiltration of liver. Suspected gallbladder sludge with single tiny gallstone. No pulmonary embolus. No significant pulmonary abnormality. Reviewed, dictated and finalized at [facility]. RT PROGRAMMER Impression: Diffuse fatty infiltration of liver. Suspected gallbladder sludge with single tiny gallstone. No pulmonary embolus. No significant pulmonary abnormality.
--- NOTE | ~2023-06-24 | US_ITS ---
Limited Abdominal Sonogram: Real-time sonographic imaging of the right upper quadrant was performed. Clinical History: Pancreatitis Findings: The liver appears mildly echogenic, with no evidence of mass lesion or bile duct dilatatio n. Main portal vein demonstrates normal direction of flow. The gallbladder is well distended, and temo ears normal with no evidence of gallstone or wall thickening. The common bile duct measures 5 mm. Th e visualized pancreas, aorta, and IVC are unremarkable. Impression: Diffuse fatty infiltration of liver. Reviewed, dictated and finalized at location M. TER Impression: Diffuse fatty infiltration of liver.
[2023-06-24 20:20] VITALS: BP 117/90; PULSE 110; RESP 14; O2SAT 100
--- NOTE | 2023-06-24 22:50 | ED.NAVMDI ---
HPI - Nausea/Vomiting/Diarrhea General Chief complaint: Nausea/Vomiting/Diarrhea <DIGNA Patel Last Filed: 06/25/23 04:12> Stated complaint: vomiting <DIGNA Patel Last Filed: 06/25/23 04:12> Time Seen by Provider: 06/24/23 22:36 <DIGNA Patel Last Filed: 06/25/23 04:12> History of Present Illness HPI Narrative: 38-year-old female with a history of alcohol abuse, MDD, anxiety reports for evaluation for nausea and vomiting for the past week. Patient drinks approximately a 5th of vodka daily for the past 5 years. States she has been vomiting frequently for the past week. States a couple days she noticed blood-tinged vomit but that has since resolved. She denies coffee-ground emesis. She is reporting generalized abdominal pain that extends from her ribs and epigastrium down into her lower quadrants which she is attributing to Vomiting. She is also reporting generalized anterior chest wall pain. She denies dysuria, hematuria, fevers, shortness of breath, cough or congestion. She does report a small amount of bright red blood per rectum when she wipes which she has attributed to hemorrhoids. Denies melena. Her last drink of alcohol was at 4:00 p.m. today. <DIGNA Patel Last Filed: 06/25/23 04:12> Related Data Home medications: Home Medications Medication Instructions Recorded Confirmed No Home Medications 02/13/23 02/13/23 <DIGNA Patel Last Filed: 06/25/23 04:12> Allergies/Adverse reactions: Allergies Allergy/AdvReac Type Severity Reaction Status Date / Time Penicillins Allergy Severe swelling Verified 10/24/22 14:47 clindamycin Allergy Intermediate Swelling Verified 10/24/22 14:47 cefaclor Allergy Unknown Swelling Verified 10/24/22 14:47 cephalexin Allergy Unknown UNKNOWN Verified 10/24/22 14:47 tramadol AdvReac Severe Mirgraines Verified 10/24/22 14:47 <DIGNA Patel Last Filed: 06/25/23 04:12> Review of Systems Review of Systems: CONSTITUTIONAL: Denies fever, chills, or sweats. EYES: Denies visual changes, redness, or discharge. ENT: Denies rhinorrhea, congestion, sore throat, or otalgia. CARDIOVASCULAR: Denies chest pain, palpitations, or edema. RESPIRATORY: Denies cough or dyspnea. GASTROINTESTINAL: See HPI GENITOURINARY: Denies dysuria or hematuria. SKIN: Denies rash or itching. MUSCULOSKELETAL: Denies back pain, joint pain, or myalgia. NEUROLOGIC: Denies headache, numbness, or weakness. PSYCHIATRIC: Denies anxiety or depression. <Jumana Garzon PA-C - Last Filed: 06/25/23 04:12> [facility] Past Medical History Medical History: Medical History Alcohol abuse Alcohol related seizure Anxiety Chronic anemia ROSEANN II (cervical intraepithelial neoplasia II) Cocaine use History of x2 Vaginal delivery x 2 <Jumana Garzon PA-C - Last Filed: 06/25/23 04:12> Surgical History Surgical History: Surgical History History of loop electrical excision procedure (LEEP) (10/2020) <Jumana Garzon PA-C - Last Filed: 06/25/23 04:12> Family History Family History: Family History Sibling Alcoholism <Jumana Garzon PA-C - Last Filed: 06/25/23 04:12> Social History Social History: Social History Social History: She lives at home with her boyfriend and 2 daughters. Her daughters are 13 and 16 years of age. 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 She has smoked half pack of cigarettes since she was 16. She occasionally will snort cocaine. Her boyfriend has a history of drug abuse. She denies any IV drug use. She drinks between a pint to a 5th of alcohol a day. Code status: Full code Surrogate decision maker: Mother
[2023-06-24 22:52] LABS: Basophils Absolute Auto 0.1 K/mm3 (0.0-0.1); Eosinophils Percent Auto 0.4 % (0-4.4); Hematocrit 31.1 % (37.0-47.0); Hemoglobin 8.6 g/dL (12.0-15.0); Immature Granulocyte Absolute 0.22 K/mm3 (0.00-0.031); Immature Granulocyte Percent A 4.2 % (0-0.5); Immature Platelet Fraction Pct 6.8 % (0.9-11.2); Lymphocytes Absolute Auto 1.24 K/mm3 (0.9-3.2); Lymphocytes Percent Auto 23.9 % (18.3-44.2); Mean Corpuscular HGB Conc 27.7 g/dl (32-36); Mean Corpuscular Hemoglobin 23.2 pg (26-34); Mean Corpuscular Volume 84.1 fl (80-100); Mean Platelet Volume 10.9 fl (7.4-10.4); Monocytes Absolute Auto 0.4 K/mm3 (0.1-0.6); Monocytes Percent Auto 7.7 % (2.6-8.5); Neutrophils Absolute Auto 3.3 K/mm3 (1.3-6.7); Neutrophils Percent Auto 62.8 % (45.5-73.1); Platelet Count Result 104 k/mm3 (150-375); Red Cell Distribution Width 23.4 % (11.5-14.5); White Blood Count 5.2 K/mm3 (4.5-10.0)
[2023-06-24 23:09] LABS: Anisocytosis 1+ (NORMAL); Hypochromasia 1+ (NORMAL); Ovalocytes 1+ (NORMAL); Platelet Estimate Decreased (Adequate); Poikilocytosis 1+ (NORMAL); Schistocytes None Seen (NORMAL); Target Cells 1+ (NORMAL)
[2023-06-24 23:14] LABS: Ethanol 180 mg/dL (<10)
[2023-06-24 23:17] LABS: Lipase 2491 U/L (23-300)
[2023-06-24] MEDS: SODIUM CHLORIDE 0.9% IV 1,000 ML 999 ML IV CONT (23:18)
[2023-06-24] MEDS: ONDANSETRON INJ 4 MG/2 ML VIAL IV PUSH (23:18)
[2023-06-24 23:19] VITALS: BP 114/88; PULSE 108; RESP 14; O2SAT 99
--- NOTE | 2023-06-24 23:19 | PC.NURSE ---
US called multiple times for US on pt. US not present for test. liborio ALEJANDRO made aware.
[2023-06-24 23:21] LABS: Alanine Aminotransferase 77 U/L (6-35); Albumin Level 5.2 g/dL (3.5-5.1); Alkaline Phosphatase 186 U/L (38-126); Aspartate Amino Transferase 291 U/L (14-36); Bilirubin Direct 1.3 mg/dL (0-0.3); Bilirubin,Total 4.4 mg/dL (0.2-1.3)
[2023-06-24 23:23] LABS: Anion Gap 30 mmol/L (8-16); Blood Urea Nitrogen 7 mg/dL (7-17); Calcium 9.8 mg/dL (8.4-10.2); Carbon Dioxide 15 mmol/L (22-30); Chloride 93 mmol/L (98-107); Estimated CRCL calculation 110 ml/min; Estimated Glomerular Filt Rate > 60; Glucose 75 mg/dL (65-110); Magnesium 2.5 mg/dL (1.6-2.3); Potassium 3.8 mmol/L (3.4-5.0); Sodium 138 mmol/L (137-145)
[2023-06-24 23:31] LABS: Partial Thromboplastin Time 27.7 SECONDS (22.3-36.8); Prothrombin Time 13.5 Seconds (11.1-14.7)
[2023-06-24 23:32] LABS: Troponin I < 0.012 ng/mL (0.000-0.034)
[2023-06-24 23:33] LABS: Lactic Acid Reflex 3.4 mmol/L (0.7-2.0)
[2023-06-24 23:48] LABS: D Dimer 1.88 ug/mL (<0.48)
[2023-06-24 23:59] LABS: Influenza A QL RT-PCR Negative (Negative); Influenza B QL RT-PCR Negative (Negative); RSV RNA, RT-PCR Negative (Negative); SARS-CoV-2 RNA PCR Negative (Negative)
[2023-06-25] VITALS (12 sets, daily range): BP systolic 100–130; BP diastolic 60–96; PULSE 100–121; RESP 14–21; TEMP 36–36.9; O2SAT 93–100
--- NOTE | 2023-06-25 | ECG_ITS ---
Measurements Intervals [place] Rate: 101 P: [place]: 0 QRS: 42 QRSD: 93 T: 35 QT: 336 QTc: 437 Interpretive Statements SINUS TACHYCARDIA BORDERLINE ECG COMPARED TO ECG 02/13/2023 12:20:44 SINUS TACHYCARDIA NOW PRESENT Electronically Signed On 06-25-2023 7:56:16 [employer] by Adolfo Mccoy D.O.
[2023-06-25] MEDS: SODIUM CHLORIDE 0.9% IV 1,000 ML 999 ML IV CONT ×2 (00:50)
[2023-06-25 00:54] LABS: Fractional Inspired Oxygen 21 %; HCO3 VBG 15.4 mEq/l (24.0-30.0); PO2 VBG 52.8 mmHg (35.0-45.0); pH VBG 7.358 (7.300-7.400)
[2023-06-25 00:56] LABS: PCO2 VBG 28.1 mmHg (42.0-48.0)
[2023-06-25 00:57] LABS: Device ROOM AIR
[2023-06-25 01:50] LABS: Phosphorus 1.6 mg/dL (2.5-4.5)
[2023-06-25 01:54] LABS: Appearance Urine Turbid (Clear); Bacteria Urine 4+ /hpf; Bilirubin Urine 2+ (Negative); Blood Urine 2+ (Negative); Color Urine Dark Yellow (Yellow); Glucose Urine UA Negative (Negative); Hyaline Casts Urine Present /lpf; Ketones Urine 4+ mg/dL (Negative); Leukocyte Esterase Ur Trace LEU/UL (Negative); Need Manual Microscopic Reviewed; Nitrate Urine Negative (Negative); Protein Urine 2+ mg/dL (Negative); RBC Urine 21-50 /hpf (0-2); Specific Grav Ur 1.024 (1.001-1.035); Squamous Epithelial Cell Urine Many /hpf (Few); WBC Urine 0-5 /hpf
[2023-06-25 01:56] LABS: Add Urine Microscopic? YES
[2023-06-25] MEDS: PANTOPRAZOLE SODIUM IV 40 MG VIAL IV PUSH (02:01)
[2023-06-25] MEDS: MORPHINE SULFATE (*CRX) 4 MG/ML INJ IV PUSH ×3 (02:02→22:34)
[2023-06-25] MEDS: ONDANSETRON INJ 4 MG/2 ML VIAL IV PUSH (02:03)
[2023-06-25] MEDS: THIAMINE HCL 200 MG/2 ML VIAL 100 MG IV PUSH (02:04)
[2023-06-25] MEDS: DEXTROSE 5%/0.9% SOD CHL 1,000 ML 999 ML IV CONT (02:06)
[2023-06-25] MEDS: FOLIC ACID 1 MG/0.2 ML INJ IV PUSH (02:06)
[2023-06-25 02:22] LABS: Reflex Lactic Acid Yes or No Add Lactic
[2023-06-25] MEDS: POTASSIUM PHOS/SODIUM PHOS 250 MG TABLET PO (02:46)
[2023-06-25] MEDS: LORazepam INJ (*CRX) 2 MG/ML VIAL 0.5 MG IV PUSH (05:24)
[2023-06-25 06:34] LABS: Lactic Acid 2.3 mmol/L (0.7-2.0)
[2023-06-25] MEDS: metroNIDAZOLE 500 MG/ISO 100ML 500 MG/100 ML BAG 100 MG IVPB ×3 (07:44→21:13)
--- NOTE | 2023-06-25 08:02 | PC.NURSE ---
pt states her last drink was yesterday morning. 06/24
--- NOTE | 2023-06-25 08:13 | PM.IMHP ---
H&P: HPI History of Present Illness Date/Time: 06/25/23 08:13 Chief Complaint: 37-year-old female with PMHx of alcohol abuse, alcohol withdrawal and seizures, cocaine use and depression presented to the emergency room for evaluation nausea and vomiting Narrative: The patient provided the following history. Patient endorses a history of previous hospitalizations for alcohol withdrawal, she reports a history withdrawal seizures, she states for the past 7 days she has had nausea vomiting she admits to moderate use alcohol citing she drinks approximately a 5th of vodka daily for the past 5 years. She states she has been with frequent vomiting for past week, last few days she has noticed blood-tinged vomit states that has since resolved. She denies any coffee-ground emesis. Patient reports generalized abdominal pain that extends from her ribs and epigastrium down into her lower quadrant which she is attributing to frequent vomiting. Patient also reports generalized anterior chest wall pain, she describes as tight, nonradiating, reproducible 3/10. She denies any fever, chills, shortness of breath, cough or congestion. Patient reports a small amount of bright red blood per rectum when she wipes, she attributes this to her hemorrhoids, she denies any melena. Patient states her last alcohol drink was 1600 yesterday. Review of Systems Review of Systems: CONSTITUTIONAL: Denies fever, chills, or sweats. EYES: Denies visual changes, redness, or discharge. ENT: Denies rhinorrhea, congestion, sore throat, or otalgia. CARDIOVASCULAR: Denies chest pain, palpitations, or edema. RESPIRATORY: Denies cough or dyspnea. GASTROINTESTINAL: See HPI GENITOURINARY: Denies dysuria or hematuria. SKIN: Denies rash or itching. MUSCULOSKELETAL: Denies back pain, joint pain, or myalgia. NEUROLOGIC: Denies headache, numbness, or weakness. PSYCHIATRIC: Denies anxiety or depression. [facility] Past Medical History Medical History Alcohol abuse Alcohol related seizure Anxiety Chronic anemia ROSEANN II (cervical intraepithelial neoplasia II) Cocaine use History of x2 Vaginal delivery x 2 Surgical History Surgical History History of loop electrical excision procedure (LEEP) (10/2020) Family History Family History Sibling Alcoholism Social History Social History Social History: She lives at home with her boyfriend and 2 daughters. Her daughters are 13 and 16 years of age. 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 She has smoked half pack of cigarettes since she was 16. She occasionally will snort cocaine. Her boyfriend has a history of drug abuse. She denies any IV drug use. She drinks between a pint to a 5th of alcohol a day. Code status: Full code Surrogate decision maker: Mother Smoking packs per day: 0.5 Smoking cigarettes per day: 10.0 Years smoked: 20 Smoking pack-years: 10.00 Smoking status: Current every day smoker Second hand tobacco smoke exposure: No Alcohol intake: current Drinks per week: 4 Substance use: current Substance use type: marijuana Other substance usage details: 1 pint to 1 fifth of vodka daily. Last use: Cocaine 11/02/21 Do You Feel Safe in your Home?: Yes Lack of Transportation: No Lack of Food: Never True Current Housing: I Have Housing Concerned About Future Housing: No Difficulty Paying Gas/Electric Bills: No Difficulty Paying for Meds: No Currently Unemployed: No Education: Associate Degree Difficulty w/ Childcare or Family Care: No Living arrangements: with family Occupation/Education: occupation Spiritual care concerns: No Agree to blood products: Yes Meds Home Medications and Allergies Home Medications Medication
--- NOTE | 2023-06-25 09:21 | ADMGEN ---
This patient, Kesha Glez, was admitted to 2 Medical Room 243-01. Patient/family oriented to hospital policies and general routines including ID bracelet, bed and alarms, visiting hours, pain management, procedures, bathroom and other care routines, personal items, smoking policy, room service/diet, and visiting hours. Information on how to activate the Rapid Response Team has been discussed. Patient/Family are encouraged to report perceived risks to care and to ask questions if they do not understand what they are told or what they should do.
[2023-06-25] MEDS: SODIUM CHLORIDE 0.9% IV 1,000 ML 125 ML IV CONT ×2 (09:27→20:30)
[2023-06-25] MEDS: levoFLOXacin 750 MG/D5W 150 ML 750 MG/150 ML BAG 100 MG IVPB (09:27)
[2023-06-25] MEDS: chlordiazePOXIDE (*CRX) 25 MG CAPSULE PO ×2 (13:18→22:36)
--- NOTE | 2023-06-25 14:52 | ECG_ITS ---
Measurements Intervals [place] Rate: 114 P: 62 NM: 188 QRS: 46 QRSD: 94 T: 36 QT: 324 QTc: 448 Interpretive Statements SINUS TACHYCARDIA INCOMPLETE RIGHT BUNDLE BRANCH BLOCK ABNORMAL ECG COMPARED TO ECG 06/25/2023 01:46:54 NO SIGNIFICANT CHANGES Electronically Signed On 06-25-2023 15:21:23 PROCESS PLANNER by Adolfo Mccoy D.O.
[2023-06-25 16:16] LABS: Hematocrit 22.6 % (37.0-47.0); Immature Platelet Fraction Pct 6.2 % (0.9-11.2); Mean Corpuscular HGB Conc 27.9 g/dl (32-36); Mean Corpuscular Volume 86.3 fl (80-100); Mean Platelet Volume 10.5 fl (7.4-10.4); Platelet Count Result 84 k/mm3 (150-375); Red Blood Count 2.62 M/mm3 (4.2-5.4); Red Cell Distribution Width 23.6 % (11.5-14.5); White Blood Count 3.8 K/mm3 (4.5-10.0)
[2023-06-25 16:19] LABS: Hemoglobin 6.3 g/dL (12.0-15.0)
[2023-06-25 16:22] LABS: Anion Gap 15 mmol/L (8-16); Blood Urea Nitrogen 4 mg/dL (7-17); Calcium 8.1 mg/dL (8.4-10.2); Carbon Dioxide 18 mmol/L (22-30); Chloride 100 mmol/L (98-107); Estimated CRCL calculation 150 ml/min; Estimated Glomerular Filt Rate > 60; Glucose 87 mg/dL (65-110); Potassium 3.5 mmol/L (3.4-5.0); Sodium 133 mmol/L (137-145)
--- NOTE | 2023-06-25 17:03 | WPDGICN ---
Assessment and Plan Assessment and plan (1) Alcohol abuse: Code(s): F10.10 - Alcohol abuse, uncomplicated Status: Acute Assessment and Plan: she continues to drink regularly although she states that she has had very little for the past several days because she has been extremely nauseated. (2) Anemia: Code(s): D64.9 - Anemia, unspecified Status: Acute Assessment and Plan: Although her hemoglobin is usually low and has macrocytic indices it was thought to be due to alcohol abuse having bone marrow suppression, she now has a significant drop her hemoglobin and she did vomit some blood shortly before admission. (3) Stool guaiac positive: Code(s): R19.5 - Other fecal abnormalities Status: Acute (4) Alcoholic pancreatitis: Qualifiers: Acute pancreatitis complication: unspecified Chronicity: acute Qualified Code(s): K85.20 - Alcohol induced acute pancreatitis without necrosis or infection Code(s): K85.20 - Alcohol induced acute pancreatitis without necrosis or infection Status: Acute Assessment and Plan: Once again she has acute pancreatitis. Her lipase was [address] scan this time does not show pancreatitis but does show possible gallbladder sludge and hepatic steatosis. (5) Transaminitis: Code(s): R74.01 - Elevation of levels of liver transaminase levels Status: Acute Assessment and Plan: She is known to have hepatic steatosis. I have told her in the past and again today that continued drinking is Almost certain to lead to cirrhosis. she admits that she has been unsuccessful in trying to stop drinking Plan EGD tomorrow morning. Explain that she may have an ulcer or some bleeding source which we could cauterize perhaps. Also discussed varices and possible need for banding. GI Consult Note Consult date/time: 06/25/23 17:03 HPI: Kesha Glez is a 38 year old female who has a known abuser of alcohol, 150 per day who has had previous alcohol withdrawal seizures and who abuses cocaine and other substances. She presents to emergency room today with the complaints that for the past 7 days she has had nausea vomiting she admits to moderate use alcohol citing she drinks approximately a 5th of vodka daily for the past 5 years.? She states she has been with frequent vomiting for past week, last few days she has noticed blood-tinged vomit states that has since resolved.? She denies any coffee-ground emesis.? She denies seeing black tarry stools but states that because she has not been eating she has not been having bowel movements. She denies using NSAIDs on an irregular basis. Patient reports generalized abdominal pain that extends from her ribs and epigastrium down into her lower quadrant which she is attributing to frequent vomiting.? Patient also reports generalized anterior chest wall pain, she describes as tight, Her hemoglobin which had been between 8 and 9.6 in the past is now down to 6.2 Review of Systems Review of Systems: All systems reviewed & are unremarkable except as noted in HPI and below PMFSH Past Medical History Medical History Alcohol abuse Alcohol related seizure Anxiety Chronic anemia ROSEANN II (cervical intraepithelial neoplasia II) Cocaine use History of x2 Vaginal delivery x 2 Surgical History Surgical History History of loop electrical excision procedure (LEEP) (10/2020) Family History Family History Sibling Alcoholism Social History Social History Social History: She lives at home with her boyfriend and 2 daughters. Her daughters are 13 and 16 years of age. 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 She has smoked half pack of cigarettes since she was
[2023-06-25 17:04] LABS: Hematocrit 22.6 % (37.0-47.0); Mean Corpuscular HGB Conc 27.4 g/dl (32-36); Mean Corpuscular Hemoglobin 23.8 pg (26-34); Mean Corpuscular Volume 86.6 fl (80-100); Mean Platelet Volume 9.9 fl (7.4-10.4); Platelet Count Result 84 k/mm3 (150-375); Red Blood Count 2.61 M/mm3 (4.2-5.4); Red Cell Distribution Width 23.5 % (11.5-14.5); White Blood Count 3.4 K/mm3 (4.5-10.0)
[2023-06-25 17:06] LABS: Hemoglobin 6.2 g/dL (12.0-15.0)
[2023-06-25 17:24] LABS: Band Neutrophils Percent 4 % (0-6); Eosinophils Absolute Manual 0.03 K/mm3 (0.02-0.5); Eosinophils Percent Manual 1 % (0-4); Hypochromasia 2+ (NORMAL); Lymphocytes Absolute Manual 0.88 K/mm3 (1.1-4.5); Metamyelocytes Percent 1 %; Monocytes Absolute Manual 0.27 K/mm3 (0.1-0.90); Monocytes Percent Manual 8 % (3-9); Neutrophils Absolute Manual 2.17 K/mm3 (1.7-7.2); Neutrophils Percent Manual 60 % (46-73); Ovalocytes 1+ (NORMAL); Platelet Estimate Decreased (Adequate); Schistocytes None Seen (NORMAL); Total Cells Counted 100
[2023-06-25 17:25] LABS: Anisocytosis 1+ (NORMAL); Macrocytosis 1+ (NORMAL); Stomatocytes 1+ (NORMAL)
[2023-06-25] MEDS: PANTOPRAZOLE SODIUM IV 40 MG VIAL 80 MG IV PUSH (17:35)
[2023-06-25 18:05] LABS: Glucose Point of Care 98 mg/dl (65-105)
[2023-06-25 21:43] LABS: Iron 52 ug/dL (37-170)
[2023-06-25 21:59] LABS: Percent Iron Saturation 22 % (20-50)
--- NOTE | 2023-06-25 22:53 | PM.EVENT ---
Event Note Event Note Event Note: Still awaiting 2 units, per blood bank patient has antibodies and that blood had been sent to an outside facility to be cross matched. BP stable, HR mildly tachycardic. Patient reported to bedside RN that her significant other had found a lodged tampon in her vagina approximately 1 week ago. unclear how long tampon was in place but reports dark discharge since its removal. reported dark discharge with wiping after urinating today and reports that she is not currently on her cycle.
[2023-06-26] VITALS (23 sets, daily range): BP systolic 92–143; BP diastolic 55–93; PULSE 82–114; RESP 12–20; TEMP 36.1–36.8; O2SAT 97–100
[2023-06-26 00:21] LABS: Glucose Point of Care 83 mg/dl (65-105)
[2023-06-26 01:06] LABS: Hematocrit 22.1 % (37.0-47.0)
[2023-06-26] MEDS: SODIUM CHLORIDE 0.9% IV 250 ML 30 ML IV CONT (02:00)
[2023-06-26] MEDS: MORPHINE SULFATE (*CRX) 4 MG/ML INJ IV PUSH ×5 (02:25→22:59)
[2023-06-26] MEDS: metroNIDAZOLE 500 MG/ISO 100ML 500 MG/100 ML BAG 100 MG IVPB ×3 (05:32→23:00)
[2023-06-26] MEDS: chlordiazePOXIDE (*CRX) 25 MG CAPSULE PO ×2 (05:32→20:53)
[2023-06-26 06:43] LABS: Hematocrit 25.1 % (37.0-47.0); Hemoglobin 7.4 g/dL (12.0-15.0); Mean Corpuscular HGB Conc 29.5 g/dl (32-36); Mean Corpuscular Volume 88.1 fl (80-100); Mean Platelet Volume 10.1 fl (7.4-10.4); Platelet Count Result 84 k/mm3 (150-375); Red Blood Count 2.85 M/mm3 (4.2-5.4); Red Cell Distribution Width 24.1 % (11.5-14.5); White Blood Count 3.4 K/mm3 (4.5-10.0)
[2023-06-26 07:06] LABS: Lactic Acid Reflex 0.8 mmol/L (0.7-2.0)
[2023-06-26 07:07] LABS: Alanine Aminotransferase 44 U/L (6-35); Albumin Level 3.6 g/dL (3.5-5.1); Alkaline Phosphatase 120 U/L (38-126); Anion Gap 17 mmol/L (8-16); Aspartate Amino Transferase 149 U/L (14-36); Bilirubin,Total 3.8 mg/dL (0.2-1.3); Blood Urea Nitrogen 2 mg/dL (7-17); Calcium 8.5 mg/dL (8.4-10.2); Carbon Dioxide 18 mmol/L (22-30); Chloride 100 mmol/L (98-107); Estimated CRCL calculation 150 ml/min; Estimated Glomerular Filt Rate > 60; Glucose 83 mg/dL (65-110); Lipase 1263 U/L (23-300); Potassium 3.1 mmol/L (3.4-5.0); Sodium 135 mmol/L (137-145)
[2023-06-26 07:27] LABS: Anisocytosis 2+ (NORMAL); Band Neutrophils Percent 10 % (0-6); Eosinophils Absolute Manual 0.06 K/mm3 (0.02-0.5); Eosinophils Percent Manual 2 % (0-4); Hypochromasia 2+ (NORMAL); Lymphocytes Absolute Manual 0.95 K/mm3 (1.1-4.5); Macrocytosis 1+ (NORMAL); Monocytes Absolute Manual 0.06 K/mm3 (0.1-0.90); Monocytes Percent Manual 2 % (3-9); Myelocytes Percent 1 %; Neutrophils Absolute Manual 2.27 K/mm3 (1.7-7.2); Neutrophils Percent Manual 57 % (46-73); Platelet Estimate Decreased (Adequate); Schistocytes None Seen (NORMAL); Total Cells Counted 100
[2023-06-26] MEDS: SODIUM CHLORIDE 0.9% IV 100 ML 30 ML (07:50)
[2023-06-26 08:00] LABS: Glucose Point of Care 87 mg/dl (65-105)
[2023-06-26] MEDS: PANTOPRAZOLE SODIUM IV 40 MG VIAL IV PUSH ×2 (09:48→20:54)
[2023-06-26] MEDS: THIAMINE HCL 200 MG/2 ML VIAL 100 MG IV PUSH (09:48)
--- NOTE | 2023-06-26 10:08 | PM.IMPN ---
Progress Note: A&P Assessment and Plan (1) Alcohol abuse: Code(s): F10.10 - Alcohol abuse, uncomplicated Status: Acute (2) Transaminitis: Code(s): R74.01 - Elevation of levels of liver transaminase levels Status: Acute (3) Alcoholic pancreatitis: Qualifiers: Acute pancreatitis complication: unspecified Chronicity: acute Qualified Code(s): K85.20 - Alcohol induced acute pancreatitis without necrosis or infection Code(s): K85.20 - Alcohol induced acute pancreatitis without necrosis or infection Status: Acute (4) Alcoholic ketoacidosis: Code(s): E87.29 - Other acidosis Status: Acute (5) Stool guaiac positive: Code(s): R19.5 - Other fecal abnormalities Status: Acute (6) Hemoglobin low: Code(s): D64.9 - Anemia, unspecified Status: Acute (7) Anemia: Code(s): D64.9 - Anemia, unspecified Status: Acute Assessment and Plan: Anemia: chronic hx of macrocytic indices?Hgb: 7.3, acute drop in Hgb, plan for EGD today -Keep pt NPO, until cleared by GI --continue telemetry monitoring -continue PPI 40mg daily - stool occult pending/needs collecting --continue to transfuse PRBC,maintain hgb above 8 -continue NPO, GI is scheduling EGD - check vitals q.4 hrs Acute Pancreatitis: hx of hepatic steatosis, elevated lipase -continue to monitor Alcohol withdrawals:?hx of alcohol abuse, reports 5th of alcohol daily -continue telemetry monitoring -initiate [facility] protocol -recheck CBC, CMP, Mag, Phos in the a.m. - give? scheduled Ativan q.6 hrs -consult care coordination for abuse/rehabilitation -seizure precaution -continue IV thiamine 100 mg daily Pancreatitis?lipase 2491, RUQ reveals diffuse fatty infiltration over liver, CXR no acute Continue telemetry monitoring -continue NPO -d/c IV fluids at this time, due to blood product admin Strict input and output monitoring Continue pain control q 4 hrs -check daily EKG QT/PT monitoring -continue metroNIDAZOLE 500 MG IV Q8 hrs -continue levofloxacin 750 mg IV every 24 hours Diet: NPO Anticipated hospital stay: greater than 2 days Quality VTE Prophylaxis VTE prophylaxis: mechanical ordered (SCDs ) Subjective Date/time seen: 06/26/23 0930 Interval history: Spoke with Dr. Williamson in reference pt with hgb 6.3 ?critical abnormal lab?Hgb: 6.3 --continue telemetry monitoring -give PPI 80mg IV? now, then 40mg daily -check stool occult for blood -transfuse 2units PRBC STAT per protocol -continue NPO, GI will plan for EGD in the a.m - check vitals q.4 hrs -trend hgb q 6 hours, maintain hgb above 8 Addendum Documented By: ?Lona Melendez 06/25/23 170 Addendum Signed By: <Electronically signed by? Lona Melendez> 06/25/23 170 H&P: HPI History of Present Illness Date/Time: 06/25/23? 08:13 Chief Complaint: 37-year-old female with PMHx of alcohol abuse, alcohol withdrawal and seizures, cocaine use and depression presented to the emergency room for evaluation nausea and vomiting Narrative: The patient provided the following history.? Patient endorses a history of previous hospitalizations for alcohol withdrawal, she reports a history withdrawal seizures, she states for the past 7 days she has had nausea vomiting she admits to moderate use alcohol citing she drinks approximately a 5th of vodka daily for the past 5 years.? She states she has been with frequent vomiting for past week, last few days she has noticed blood-tinged vomit states that has since resolved.? She denies any coffee-ground emesis.? Patient reports generalized abdominal pain that extends from her ribs and epigastrium down into her lower quadrant which she is attributing to frequent vomiting.? Patient also reports generalized anterior chest wall pain, she describes as tight, nonradiating, reproducible 3/10.? She denies any fever, chills, shortness of breath, cough or congestion.? Patient reports a smal
--- NOTE | 2023-06-26 10:25 | WPDANESEPPF ---
Anes - Initial Pre Proc Eval Procedure: Operation Date: 06/26/23 15:00 Proposed Procedures p Esophagogastroduodenoscopy - Manuel Williamson MD Date/Time: 06/26/23 10:25 Surgeon: Eligio Fisher MD Pre Op Diagnosis: pancreatitis Patient Data Age: 38 Gender: F Height: 1.83 m Weight: 92 kg Last Vital Signs Temp 97 F L 06/26/23 10:12 Pulse 91 06/26/23 10:12 Resp 18 06/26/23 10:12 BP 121/78 06/26/23 10:12 Pulse Ox 99 06/26/23 10:12 O2 Del Method Room Air 06/26/23 10:12 Allergies Allergy/AdvReac Type Severity Reaction Status Date / Time Penicillins Allergy Severe swelling Verified 06/26/23 10:09 clindamycin Allergy Intermediate Swelling Verified 06/26/23 10:09 cefaclor Allergy Unknown Swelling Verified 06/26/23 10:09 cephalexin Allergy Unknown UNKNOWN Verified 06/26/23 10:09 tramadol AdvReac Severe Mirgraines Verified 06/26/23 10:09 Home Medications Medication Instructions Recorded Confirmed Type No Home Medications 02/13/23 02/13/23 History Laboratory Tests 06/25/23 06/25/23 06/25/23 15:59 16:57 18:03 WBC 3.8 L K/mm3 3.4 L K/mm3 (4.5-10.0) (4.5-10.0) RBC 2.62 L M/mm3 2.61 L M/mm3 (4.2-5.4) (4.2-5.4) Hgb 6.3 L* g/dL 6.2 L* g/dL (12.0-15.0) (12.0-15.0) Hct 22.6 L % 22.6 L % (37.0-47.0) (37.0-47.0) MCV 86.3 fl 86.6 fl (80-100) (80-100) MCH 24.0 L pg 23.8 L pg (26-34) (26-34) MCHC 27.9 L g/dl 27.4 L g/dl (32-36) (32-36) RDW 23.6 H % 23.5 H % (11.5-14.5) (11.5-14.5) Plt Count 84 L k/mm3 84 L k/mm3 (150-375) (150-375) MPV 10.5 H fl 9.9 fl (7.4-10.4) (7.4-10.4) Immature Gran % (Auto) Not Reportable Neut % (Auto) Not Reportable Lymph % (Auto) Not Reportable [place] % (Auto) Not Reportable Eos % (Auto) Not Reportable Baso % (Auto) Not Reportable Lymph # (Auto) Not Reportable [place] # (Auto) Not Reportable Eos # (Auto) Not Reportable Baso # (Auto) Not Reportable Abs Immat Gran (auto) Not Reportable Absolute Neuts (auto) Not Reportable Absolute Nucleated RBC Not Reportable Total Counted 100 Neutrophils % (Manual) 60 % (46-73) Band Neutrophils % 4 % (0-6) Lymphocytes % (Manual) 26.0 % (18-44) Monocytes % (Manual) 8 % (3-9) Eosinophils % (Manual) 1 % (0-4) Metamyelocytes % 1 % Myelocytes % Nucleated RBC % Not Reportable Abs Neuts (Manual) 2.17 K/mm3 (1.7-7.2) Abs Lymphs (Manual) 0.88 L K/mm3 (1.1-4.5) Abs Monocytes (Manual) 0.27 K/mm3 (0.1-0.90) Absolute Eos (Manual) 0.03 K/mm3 (0.02-0.5) Platelet Estimate Decreased (Adequate) % Immature Plt Fraction 6.2 % 5.0 % (0.9-11.2) (0.9-11.2) Hypochromasia 2+ (NORMAL) Anisocytosis 1+ (NORMAL) Macrocytosis 1+ (NORMAL) Ovalocytes 1+ (NORMAL) Stomatocytes 1+ (NORMAL) Schistocytes None seen (NORMAL) Sodium 133 L mmol/L (137-145) Potassium 3.5 mmol/L (3.4-5.0) Chloride 100 mmol/L (98-107) Carbon Dioxide 18 L mmol/L (22-30) Anion Gap 15 mmol/L (8-16) BUN 4 L mg/dL (7-17) Creatinine 0.50 L mg/dL (0.7-1.0) Estim Creat Clear Calc 150 ml/min Estimated GFR > 60 (59 - ) Glucose 87 mg/dL (65-110) POC Capillary Glucose 98 mg/dl (65-105) Lactic Acid Calcium 8.1 L mg/dL (8.4-10.2) Iron 52 ug/dL (37-170) TIBC 236 L ug/dL (261-462) % Saturation 22 % (20-50) Total Bilirubin AST ALT Alkaline Phosphatase To
--- NOTE | 2023-06-26 11:01 | PC.NURSE ---
pt was taken off of the unit at 1000 to get an EGD done.
[2023-06-26] MEDS: LACTATED RINGERS 1,000 ML 150 ML IV CONT (11:33)
[2023-06-26] MEDS: levoFLOXacin 750 MG/D5W 150 ML 750 MG/150 ML BAG 100 MG IVPB (12:03)
[2023-06-26] MEDS: FOLIC ACID 1 MG/0.2 ML INJ IV PUSH (12:03)
[2023-06-26 13:29] LABS: Glucose Point of Care 109 mg/dl (65-105)
--- NOTE | 2023-06-26 14:52 | ECG_ITS ---
Measurements Intervals [place] Rate: 93 P: 47 DE: 194 QRS: 49 QRSD: 105 T: 18 QT: 356 QTc: 444 Interpretive Statements SINUS RHYTHM NORMAL ECG COMPARED TO ECG 06/25/2023 15:17:56 SINUS RHYTHM NOW PRESENT Electronically Signed On 06-26-2023 14:08:01 NUTRITION AIDE by Adolfo Mccoy D.O.
[2023-06-26 16:15] LABS: Hematocrit 28.1 % (37.0-47.0); Hemoglobin 8.3 g/dL (12.0-15.0)
[2023-06-26] MEDS: SODIUM CHLORIDE 0.9% IV 1,000 ML 125 ML IV CONT (20:53)
[2023-06-26 22:56] LABS: Hematocrit 29.1 % (37.0-47.0); Hemoglobin 8.8 g/dL (12.0-15.0)
[2023-06-27] VITALS (9 sets, daily range): BP systolic 102–132; BP diastolic 62–89; PULSE 90–116; RESP 14–18; TEMP 36.8–37; O2SAT 96–99
[2023-06-27] MEDS: chlordiazePOXIDE (*CRX) 25 MG CAPSULE PO (03:17)
[2023-06-27] MEDS: MORPHINE SULFATE (*CRX) 4 MG/ML INJ IV PUSH ×5 (03:17→22:04)
[2023-06-27 05:19] LABS: Basophils Percent Auto 0.8 % (0.2-1.2); Eosinophils Absolute Auto 0.1 K/mm3 (0-0.3); Eosinophils Percent Auto 2.8 % (0-4.4); Hematocrit 28.2 % (37.0-47.0); Hemoglobin 8.6 g/dL (12.0-15.0); Immature Granulocyte Percent A 8.4 % (0-0.5); Immature Platelet Fraction Pct 6.9 % (0.9-11.2); Mean Corpuscular HGB Conc 30.5 g/dl (32-36); Mean Corpuscular Hemoglobin 25.8 pg (26-34); Mean Corpuscular Volume 84.7 fl (80-100); Mean Platelet Volume 11.1 fl (7.4-10.4); Monocytes Absolute Auto 0.4 K/mm3 (0.1-0.6); Monocytes Percent Auto 11.8 % (2.6-8.5); Neutrophils Absolute Auto 1.7 K/mm3 (1.3-6.7); Neutrophils Percent Auto 48.2 % (45.5-73.1); Nucleated Red Blood Cells Perc 0.8 % (0.0-0.2); Platelet Count Result 85 k/mm3 (150-375); Red Blood Count 3.33 M/mm3 (4.2-5.4); Red Cell Distribution Width 23.3 % (11.5-14.5); White Blood Count 3.6 K/mm3 (4.5-10.0)
[2023-06-27 05:22] LABS: Alanine Aminotransferase 38 U/L (6-35); Albumin Level 3.3 g/dL (3.5-5.1); Alkaline Phosphatase 142 U/L (38-126); Anion Gap 13 mmol/L (8-16); Aspartate Amino Transferase 129 U/L (14-36); Bilirubin,Total 4.5 mg/dL (0.2-1.3); Calcium 8.2 mg/dL (8.4-10.2); Carbon Dioxide 25 mmol/L (22-30); Chloride 98 mmol/L (98-107); Estimated CRCL calculation 150 ml/min; Estimated Glomerular Filt Rate > 60; Glucose 103 mg/dL (65-110); Potassium 2.9 mmol/L (3.4-5.0); Sodium 136 mmol/L (137-145)
[2023-06-27 05:44] LABS: Glucose Point of Care 122 mg/dl (65-105)
[2023-06-27] MEDS: SODIUM CHLORIDE 0.9% IV 1,000 ML 125 ML IV CONT (05:50)
[2023-06-27] MEDS: ONDANSETRON INJ 4 MG/2 ML VIAL IV PUSH ×3 (05:50→18:20)
[2023-06-27 05:55] LABS: Blood Urea Nitrogen < 2 mg/dL (7-17)
[2023-06-27] MEDS: metroNIDAZOLE 500 MG/ISO 100ML 500 MG/100 ML BAG 100 MG IVPB ×3 (06:00→21:17)
[2023-06-27 06:01] LABS: Hypochromasia 1+ (NORMAL); Macrocytosis 1+ (NORMAL); Platelet Estimate Decreased (Adequate); Polychromasia 1+ (NORMAL)
[2023-06-27 06:02] LABS: Anisocytosis 3+ (NORMAL); Microcytosis 2+ (NORMAL); Schistocytes None Seen (NORMAL)
--- NOTE | 2023-06-27 07:06 | WPDGIPROGNO ---
Progress Note: A&P Assessment and Plan (1) Alcohol abuse: Code(s): F10.10 - Alcohol abuse, uncomplicated Status: Acute Assessment and Plan: she continues to drink regularly although she states that she has had very little for the past several days because she has been extremely nauseated. (2) Anemia: Code(s): D64.9 - Anemia, unspecified Status: Acute Assessment and Plan: Although her hemoglobin is usually low and has macrocytic indices it was thought to be due to alcohol abuse having bone marrow suppression, she now has a significant drop her hemoglobin and she did vomit some blood shortly before admission. counts remained stable (3) Stool guaiac positive: Code(s): R19.5 - Other fecal abnormalities Status: Acute Assessment and Plan: she has had no evidence of bleeding while here. EGD was negative for ulcers or other source of bleeding. There was mild diffuse gastritis likely due to alcohol. Alcoholic gastritis resolved rather quickly and probably would have looked more severe several days ago. (4) Alcoholic pancreatitis: Qualifiers: Acute pancreatitis complication: unspecified Chronicity: acute Qualified Code(s): K85.20 - Alcohol induced acute pancreatitis without necrosis or infection Code(s): K85.20 - Alcohol induced acute pancreatitis without necrosis or infection Status: Acute Assessment and Plan: Once again she has acute pancreatitis. Her lipase was [address] scan this time does not show pancreatitis but does show possible gallbladder sludge and hepatic steatosis. (5) Transaminitis: Code(s): R74.01 - Elevation of levels of liver transaminase levels Status: Acute Assessment and Plan: She is known to have hepatic steatosis. I have told her in the past and again today that continued drinking is Almost certain to lead to cirrhosis. she admits that she has been unsuccessful in trying to stop drinking Transaminases are slowly decreasing but bilirubin actually has increased today to 4.5. Plan Will cut back on her diet because of persistent pain. He was a tiny gallstones seen on CT. I will obtain MRCP to make sure that we are not missing anything and to get better understanding of the current situation with the pancreas. Subjective Date/time seen: 06/27/23 07:06 although she was very hungry yesterday and ate a cheeseburger at dinner time, she then became more uncomfortable with increasing pain. She is still needing requesting pain medications. I told her there for that I obviously advanced her diet to fast and will cut back to full liquids. If pain persists will go back to clear liquids. Exam Const: General: healthy appearing, alert and awake Orientation/consciousness: patient oriented x3 Resp: Auscultation: clear to auscultation bilaterally Cardio: Rhythm: regular rhythm GI: GI Palp: Yes Soft to palpation, Yes Tenderness to palpation present (GI) ( throughout the upper abdomen and right lower and middle abdomen.) and Yes Hepatomegaly present Auscultation: normal bowel sounds Neuro: General: patient oriented x3 Objective Data Vital Signs Vital Signs: Vital Signs - 24 hr 06/26/23 08:05 06/26/23 08:00 06/26/23 08:01 Temperature 36.4 C 36.4 C 36.4 C Pulse Rate 93 93 93 Pulse Rate [Left Radial Palpation] Respiratory Rate 16 16 16 Blood Pressure 119/74 119/74 119/74 Pulse Oximetry 100 100 100 Oxygen Delivery 06/26/23 09:01 06/26/23 10:01 06/26/23 10:12 Temperature 36.6 C 36.1 C L 36.1 C L Pulse Rate 90 91 91 Pulse Rate [Left Radial Palpation] Respiratory Rate 16 18 18 Blood Pressure 119/74 121/78 121/78 Pulse Oximetry 99 99 99 Oxygen Delivery Room Air 06/26/23 08:00 06/26/23 10:45 06/26/23 11:35 Temperature 36.2 C L Pulse Rate 92 100 Pulse Rate [Left Radial Palpation] Respiratory Rate 18 20 Blood Pressure 128/83 92/64 L Pulse Oximetry
[2023-06-27 07:35] LABS: Lipase 1008 U/L (23-300)
--- NOTE | 2023-06-27 08:14 | WPDANESPN ---
Anes - Prog Note Post-Op Date/Time: 06/27/23 08:14 Cardiovascular status: normal Respiratory status: normal Airway patency: baseline Mental status: baseline Post-Op hydration status: normal Vital Signs: Last Vital Signs Temp 36.8 C 06/27/23 03:32 Pulse 102 H 06/27/23 04:00 Resp 17 06/27/23 03:32 BP 103/69 06/27/23 03:32 Pulse Ox 98 06/27/23 03:32 O2 Del Method Room Air 06/26/23 11:55 Pain Score (VAS): 2/10 I/O: Intake & Output 06/26/23 06/27/23 06/27/23 23:59 07:59 15:59 Intake Total 1220 1200 Output Total 500 600 Balance 720 600 Laboratory Tests 06/27/23 04:26 06/27/23 04:26 06/25/23 06/26/23 06/26/23 16:57 13:27 16:11 WBC RBC Hgb 8.3 L Hct 28.1 L MCV MCH MCHC RDW Plt Count MPV Immature Gran % (Auto) Neut % (Auto) Lymph % (Auto) [place] % (Auto) Eos % (Auto) Baso % (Auto) Lymph # (Auto) [place] # (Auto) Eos # (Auto) Baso # (Auto) Abs Immat Gran (auto) Absolute Neuts (auto) Absolute Nucleated RBC Nucleated RBC % Platelet Estimate % Immature Plt Fraction Polychromasia Hypochromasia Anisocytosis Microcytosis Macrocytosis Schistocytes Sodium Potassium Chloride Carbon Dioxide Anion Gap BUN Creatinine Estim Creat Clear Calc Estimated GFR Glucose POC Capillary Glucose 109 H Calcium Total Bilirubin AST ALT Alkaline Phosphatase Total Protein Albumin Lipase Enhanced Crossmatch See Detail 06/26/23 06/27/23 06/27/23 22:40 04:26 05:37 WBC 3.6 L RBC 3.33 L Hgb 8.8 L 8.6 L Hct 29.1 L 28.2 L MCV 84.7 MCH 25.8 L MCHC 30.5 L RDW 23.3 H Plt Count 85 L MPV 11.1 H Immature Gran % (Auto) 8.4 H Neut % (Auto) 48.2 Lymph % (Auto) 28.0 [place] % (Auto) 11.8 H Eos % (Auto) 2.8 Baso % (Auto) 0.8 Lymph # (Auto) 1.00 [place] # (Auto) 0.4 Eos # (Auto) 0.1 Baso # (Auto) 0.0 Abs Immat Gran (auto) 0.30 H Absolute Neuts (auto) 1.7 Absolute Nucleated RBC 0.0 Nucleated RBC % 0.8 H Platelet Estimate Decreased % Immature Plt Fraction 6.9 Polychromasia 1+ Hypochromasia 1+ Anisocytosis 3+ Microcytosis 2+ Macrocytosis 1+ Schistocytes None seen Sodium 136 L Potassium 2.9 L Chloride 98 Carbon Dioxide 25 Anion Gap 13 BUN < 2 L Creatinine 0.50 L Estim Creat Clear Calc 150 Estimated GFR > 60 Glucose 103 POC Capillary Glucose 122 H Calcium 8.2 L Total Bilirubin 4.5 H AST 129 H ALT 38 H Alkaline Phosphatase 142 H Total Protein 6.0 L Albumin 3.3 L Lipase 1008 H Enhanced Crossmatch Post-procedural complaints: none Patient Feedback: Patient satisfied with anesthetic care.
[2023-06-27] MEDS: FOLIC ACID 1 MG/0.2 ML INJ IV PUSH (08:38)
[2023-06-27] MEDS: levoFLOXacin 750 MG/D5W 150 ML 750 MG/150 ML BAG 100 MG IVPB (08:38)
[2023-06-27] MEDS: THIAMINE HCL 200 MG/2 ML VIAL 100 MG IV PUSH (08:39)
[2023-06-27] MEDS: PANTOPRAZOLE SODIUM IV 40 MG VIAL IV PUSH ×2 (08:39→21:17)
[2023-06-27] MEDS: POTASSIUM CHLORIDE INJ 40 MEQ in SODIUM CHLORIDE 0.9% IV 500 ML 130 MEQ IVPB (11:00)
[2023-06-27 12:20] LABS: Glucose Point of Care 141 mg/dl (65-105)
--- NOTE | 2023-06-27 13:19 | PM.IMPN ---
Progress Note: A&P Assessment and Plan (1) Anemia: Code(s): D64.9 - Anemia, unspecified Status: Acute (2) Alcoholic pancreatitis: Qualifiers: Acute pancreatitis complication: unspecified Chronicity: acute Qualified Code(s): K85.20 - Alcohol induced acute pancreatitis without necrosis or infection Code(s): K85.20 - Alcohol induced acute pancreatitis without necrosis or infection Status: Acute (3) Transaminitis: Code(s): R74.01 - Elevation of levels of liver transaminase levels Status: Acute Assessment and Plan: elevated liver enzymes -fatty liver -will need to follow-up outpatient for ongoing management (4) Alcohol abuse: Code(s): F10.10 - Alcohol abuse, uncomplicated Status: Acute (5) Hypokalemia due to excessive gastrointestinal loss of potassium: Code(s): E87.6 - Hypokalemia Status: Acute Plan s/p: POD 1, EGD impression: Reflux esophagitis, grade 1 with erythema ( Nancy was present in the distal esophagus) -gastritis -suspected hemorrhagic gastritis -H pylori pending -add pantoprazole 40 mg once daily for 3 weeks Anemia: chronic hx of macrocytic indices?Hgb: 7.3, acute drop in Hgb, plan for EGD today -Keep pt NPO, until cleared by GI --continue telemetry monitoring -continue PPI 40mg daily - stool occult pending/needs collecting --continue to transfuse PRBC,maintain hgb above 8 -continue NPO, GI is scheduling EGD - check vitals q.4 hrs Hypokalemia: Potassium 2.9 -give potassium chloride 40 mEq IVP once -recheck BMP in the a.m -continue to telemetry monitoring Alcohol withdrawals:?hx of alcohol abuse, reports 5th of alcohol daily -continue telemetry monitoring -initiate CIWA protocol -recheck CBC, CMP, Mag, Phos in the a.m. - give? scheduled Ativan q.6 hrs -consult care coordination for abuse/rehabilitation -continue seizure precautions -continue IV thiamine 100 mg daily for 5 days then switch to p.o. daily, pharmacy consulted, dose adjusted -continue Librium 25 mg p.o. every 6 hours Pancreatitis?lipase 1008, trending down, AST 129, ALT 38 Continue telemetry monitoring -diet is being managed by GI Strict input and output monitoring Continue pain control q 4 hrs -check daily EKG QT/PT monitoring -continue metroNIDAZOLE 500 MG IV Q8 hrs -continue levofloxacin 750 mg IV every 24 hours ?Diet: Advanced as directed by GI Anticipated hospital stay:??greater than 2 days Quality VTE Prophylaxis VTE prophylaxis: mechanical ordered (SCDs ) Subjective Date/time seen: 06/27/23 13:19 Review of Systems Review of Systems: CONSTITUTIONAL: Denies fever, chills, or sweats. EYES: Denies visual changes, redness, or discharge. ENT: Denies rhinorrhea, congestion, sore throat, or otalgia. CARDIOVASCULAR: Denies chest pain, palpitations, or edema. RESPIRATORY: Denies cough or dyspnea. GASTROINTESTINAL: See HPI GENITOURINARY: Denies dysuria or hematuria. SKIN: Denies rash or itching. MUSCULOSKELETAL: Denies back pain, joint pain, or myalgia. NEUROLOGIC: Denies headache, numbness, or weakness. PSYCHIATRIC: Denies anxiety or depression. Exam Narrative: General: Patient sitting up in the bed, mother is by the bedside in no acute distress HEENT: PERRL, EOMI. Sclera anicteric. Oral mucosa moist. Neck: Supple. No midline cervical tenderness. Respiratory: Respirations are non- labored and lungs are clear to auscultation bilaterally. Cardiovascular: Sinus Tachycardia 108 Gastrointestinal: Abdomen is soft, tender to palpitations , mild distension, positive bowel sounds. Skin: Warm and dry. No rash or lesions on limited exam. Extremities: No cyanosis, clubbing, or edema. Radial and pedal pulses intact. Neurological: Alert and oriented. Cranial nerves 2-12 are grossly intact. No gross focal deficits to casual conversation. Psychiatric: Pleasant and cooperative with normal mood and affect. Judgment and insight
[2023-06-27 17:46] LABS: Lactic Acid Reflex 1.4 mmol/L (0.7-2.0)
[2023-06-27 18:10] LABS: Glucose Point of Care 126 mg/dl (65-105)
[2023-06-28] VITALS (10 sets, daily range): BP systolic 111–136; BP diastolic 68–88; PULSE 88–114; RESP 16–18; TEMP 36.2–36.6; O2SAT 99–100
[2023-06-28 00:04] LABS: Glucose Point of Care 142 mg/dl (65-105)
[2023-06-28] MEDS: ONDANSETRON INJ 4 MG/2 ML VIAL IV PUSH ×3 (00:09→17:14)
[2023-06-28] MEDS: SODIUM CHLORIDE 0.9% IV 1,000 ML 125 ML IV CONT ×2 (00:11→08:59)
[2023-06-28] MEDS: MORPHINE SULFATE (*CRX) 4 MG/ML INJ IV PUSH ×3 (01:59→13:25)
[2023-06-28] MEDS: chlordiazePOXIDE (*CRX) 25 MG CAPSULE PO ×3 (04:08→18:21)
[2023-06-28 05:11] LABS: Basophils Percent Auto 0.9 % (0.2-1.2); Eosinophils Absolute Auto 0.1 K/mm3 (0-0.3); Hematocrit 27.8 % (37.0-47.0); Hemoglobin 8.2 g/dL (12.0-15.0); Immature Granulocyte Absolute 0.22 K/mm3 (0.00-0.031); Immature Granulocyte Percent A 6.3 % (0-0.5); Immature Platelet Fraction Pct 7.1 % (0.9-11.2); Lymphocytes Absolute Auto 1.19 K/mm3 (0.9-3.2); Lymphocytes Percent Auto 33.8 % (18.3-44.2); Mean Corpuscular HGB Conc 29.5 g/dl (32-36); Mean Corpuscular Hemoglobin 25.2 pg (26-34); Mean Corpuscular Volume 85.5 fl (80-100); Mean Platelet Volume 10.3 fl (7.4-10.4); Monocytes Absolute Auto 0.5 K/mm3 (0.1-0.6); Monocytes Percent Auto 13.1 % (2.6-8.5); Neutrophils Absolute Auto 1.6 K/mm3 (1.3-6.7); Neutrophils Percent Auto 43.9 % (45.5-73.1); Platelet Count Result 85 k/mm3 (150-375); Red Blood Count 3.25 M/mm3 (4.2-5.4); Red Cell Distribution Width 23.5 % (11.5-14.5); White Blood Count 3.5 K/mm3 (4.5-10.0)
[2023-06-28 05:18] LABS: Alanine Aminotransferase 31 U/L (6-35); Albumin Level 3.5 g/dL (3.5-5.1); Alkaline Phosphatase 157 U/L (38-126); Anion Gap 11 mmol/L (8-16); Aspartate Amino Transferase 92 U/L (14-36); Bilirubin,Total 5.4 mg/dL (0.2-1.3); Calcium 8.6 mg/dL (8.4-10.2); Carbon Dioxide 26 mmol/L (22-30); Chloride 100 mmol/L (98-107); Estimated CRCL calculation 150 ml/min; Estimated Glomerular Filt Rate > 60; Glucose 113 mg/dL (65-110); Potassium 2.9 mmol/L (3.4-5.0); Sodium 137 mmol/L (137-145)
[2023-06-28 05:31] LABS: Blood Urea Nitrogen < 2 mg/dL (7-17)
[2023-06-28] MEDS: metroNIDAZOLE 500 MG/ISO 100ML 500 MG/100 ML BAG 100 MG IVPB ×3 (05:34→20:34)
[2023-06-28 05:49] LABS: Anisocytosis 1+ (NORMAL); Platelet Estimate Decreased (Adequate); Schistocytes Rare (NORMAL); Stomatocytes 1+ (NORMAL)
[2023-06-28 06:11] LABS: Glucose Point of Care 125 mg/dl (65-105)
[2023-06-28 08:29] LABS: Magnesium 1.4 mg/dL (1.6-2.3)
[2023-06-28] MEDS: THIAMINE HCL 200 MG/2 ML VIAL 100 MG IV PUSH (08:48)
[2023-06-28] MEDS: PANTOPRAZOLE SODIUM IV 40 MG VIAL IV PUSH ×2 (08:48→20:34)
[2023-06-28] MEDS: FOLIC ACID 1 MG/0.2 ML INJ IV PUSH (08:48)
[2023-06-28] MEDS: levoFLOXacin 750 MG/D5W 150 ML 750 MG/150 ML BAG 100 MG IVPB (08:48)
--- NOTE | 2023-06-28 10:17 | PM.IMPN ---
Progress Note: A&P Assessment and Plan (1) Anemia: Code(s): D64.9 - Anemia, unspecified Status: Acute (2) Alcoholic pancreatitis: Qualifiers: Acute pancreatitis complication: unspecified Chronicity: acute Qualified Code(s): K85.20 - Alcohol induced acute pancreatitis without necrosis or infection Code(s): K85.20 - Alcohol induced acute pancreatitis without necrosis or infection Status: Acute (3) Transaminitis: Code(s): R74.01 - Elevation of levels of liver transaminase levels Status: Acute Assessment and Plan: elevated liver enzymes -fatty liver -will need to follow-up outpatient for ongoing management (4) Alcohol abuse: Code(s): F10.10 - Alcohol abuse, uncomplicated Status: Acute (5) Hypokalemia due to excessive gastrointestinal loss of potassium: Code(s): E87.6 - Hypokalemia Status: Acute Plan s/p: POD 2 EGD impression: Reflux esophagitis, grade 1 with erythema ( Nancy was present in the distal esophagus) -gastritis -suspected hemorrhagic gastritis -H pylori pending -add pantoprazole 40 mg once daily for 3 weeks at discharge Anemia: chronic hx of macrocytic indices?Hgb: 8.2 -Keep pt NPO, until cleared by GI --continue telemetry monitoring -continue IV PPI 40mg BID - stool occult pending/needs collecting -maintain hgb above 8 -continue NPO - check vitals q.4 hrs Hypokalemia: Potassium 2.9, magnesium is 1.4 -continue potassium chloride 40 mEq IVPB once -recheck BMP in the a.m -continue to telemetry monitoring -give 3g magnesium IVPB once Alcohol withdrawals:?hx of alcohol abuse, reports 5th of alcohol daily -continue telemetry monitoring -initiate CIWA protocol -recheck CBC, CMP, Mag, Phos in the a.m. - give? scheduled Ativan q.6 hrs -consult care coordination for abuse/rehabilitation -continue seizure precautions -continue IV thiamine 100 mg daily for 5 days then switch to p.o. daily, pharmacy consulted, dose adjusted -continue Librium 25 mg p.o. every 6 hours Pancreatitis?lipase 876, trending down, AST 129, ALT 38 Continue telemetry monitoring -diet is being managed by GI Strict input and output monitoring Continue pain control q 4 hrs -continue metroNIDAZOLE 500 MG IV Q8 hrs -continue levofloxacin 750 mg IV every 24 hours -MRCP negative for common bile duct stones, shows pancreatitis -d/c fluids -check CXR r/o fluid overload please see new pain management order - decrease morphine to 2mg q 4 hours for pain >7 ?Diet: Advanced as directed by GI Anticipated hospital stay:??greater than 2 days Quality VTE Prophylaxis VTE prophylaxis: mechanical ordered (SCDs ) Subjective Date/time seen: 06/28/23 10:17 Interval history: HPI: Spoke with Dr. Williamson in reference pt with hgb 6.3 ?critical abnormal lab?Hgb: 6.3 --continue telemetry monitoring -give PPI 80mg IV? now, then 40mg daily -check stool occult for blood -transfuse 2units PRBC STAT per protocol -continue NPO, GI will plan for EGD in the a.m - check vitals q.4 hrs -trend hgb q 6 hours, maintain hgb above 8 Addendum Documented By: ?Lona Melendez 06/25/23 170 Addendum Signed By: <Electronically signed by? Lona Melendez> 06/25/23 1702 H&P: HPI History of Present Illness Date/Time: 06/25/23? 08:13 Chief Complaint: 37-year-old female with PMHx of alcohol abuse, alcohol withdrawal and seizures, cocaine use and depression presented to the emergency room for evaluation nausea and vomiting Narrative: The patient provided the following history.? Patient endorses a history of previous hospitalizations for alcohol withdrawal, she reports a history withdrawal seizures, she states for the past 7 days she has had nausea vomiting she admits to moderate use alcohol citing she drinks approximately a 5th of vodka daily for the past 5 years.? She states she has been with frequent vomiting for past week, last few days she has noticed blood-ti
[2023-06-28] MEDS: POTASSIUM CHLORIDE INJ 40 MEQ in SODIUM CHLORIDE 0.9% IV 500 ML 130 MEQ IVPB (10:48)
--- NOTE | 2023-06-28 11:02 | WPDGIPROGNO ---
Progress Note: A&P Assessment and Plan (1) Alcohol abuse: Code(s): F10.10 - Alcohol abuse, uncomplicated Status: Acute Assessment and Plan: she continues to drink regularly although she states that she has had very little for the past several days because she has been extremely nauseated. (2) Anemia: Code(s): D64.9 - Anemia, unspecified Status: Acute Assessment and Plan: Although her hemoglobin is usually low and has macrocytic indices it was thought to be due to alcohol abuse having bone marrow suppression, she now has a significant drop her hemoglobin and she did vomit some blood shortly before admission. counts remained stable (3) Stool guaiac positive: Code(s): R19.5 - Other fecal abnormalities Status: Acute Assessment and Plan: she has had no evidence of bleeding while here. EGD was negative for ulcers or other source of bleeding. There was mild diffuse gastritis likely due to alcohol. Alcoholic gastritis resolved rather quickly and probably would have looked more severe several days ago. (4) Alcoholic pancreatitis: Qualifiers: Acute pancreatitis complication: unspecified Chronicity: acute Qualified Code(s): K85.20 - Alcohol induced acute pancreatitis without necrosis or infection Code(s): K85.20 - Alcohol induced acute pancreatitis without necrosis or infection Status: Acute Assessment and Plan: Once again she has acute pancreatitis. Her lipase was [address] scan this time does not show pancreatitis but does show possible gallbladder sludge and hepatic steatosis. Still having significant pain requiring narcotics. I told her we cannot advance her diet until her pain is better and in fact I think we should give her clear liquids today. MRCP is negative for biliary cause of pancreatitis. Common bile duct is clear (5) Transaminitis: Code(s): R74.01 - Elevation of levels of liver transaminase levels Status: Acute Assessment and Plan: She is known to have hepatic steatosis. I have told her in the past and again today that continued drinking is Almost certain to lead to cirrhosis. she admits that she has been unsuccessful in trying to stop drinking Transaminases are slowly decreasing but bilirubin actually has increased today to 4.5. Plan Will cut back on her diet because of persistent pain. He was a tiny gallstones seen on CT. I will obtain MRCP to make sure that we are not missing anything and to get better understanding of the current situation with the pancreas. Subjective Date/time seen: 06/28/23 11:02 She still complains of significant pain in the upper abdomen. MRCP was negative for common bile duct stones. I explained her that the pancreatitis is likely due again to alcohol. I also explained that each episode of pancreatitis as a higher risk of or serious complications that prior episodes. Exam Const: General: healthy appearing, alert and awake Orientation/consciousness: patient oriented x3 Resp: Auscultation: clear to auscultation bilaterally Cardio: Rhythm: regular rhythm GI: GI Palp: Yes Soft to palpation, Yes Tenderness to palpation present (GI) ( throughout the upper abdomen and right lower and middle abdomen.) and Yes Hepatomegaly present Auscultation: normal bowel sounds Neuro: General: patient oriented x3 Objective Data Vital Signs Vital Signs: Vital Signs - 24 hr 06/27/23 12:00 06/27/23 12:00 06/27/23 12:00 Temperature 36.8 C Pulse Rate 100 116 H Pulse Rate [Left Radial Palpation] 98 Respiratory Rate 16 Blood Pressure 105/65 Pulse Oximetry 96 Oxygen Delivery 06/27/23 16:00 06/27/23 16:00 06/27/23 16:00 Temperature 36.8 C Pulse Rate 102 H 93 Pulse Rate [Left Radial Palpation] 98 Respiratory Rate 16 Blood Pressure 104/68 Pulse Oximetry 98 Oxygen Delivery 06/27/23 19:11 06/28/23 00:00 06/27/23
[2023-06-28 11:06] LABS: Lipase 876 U/L (23-300)
[2023-06-28 12:14] LABS: Glucose Point of Care 129 mg/dl (65-105)
[2023-06-28] MEDS: LIPASE/AMYLASE/PROTEASE 12,000 UNITS CAP 1 CAP PO ×2 (13:30→17:05)
[2023-06-28] MEDS: LORazepam INJ (*CRX) 2 MG/ML VIAL 0.5 MG IV PUSH (14:58)
[2023-06-28] MEDS: MAGNESIUM SULFATE 3GM/D5W100ML 3 GM/100 ML BAG IVPB (17:05)
[2023-06-28] MEDS: MORPHINE SULFATE (*CRX) 2 MG/ML INJ IV PUSH ×2 (18:26→22:21)
[2023-06-28 18:31] LABS: Glucose Point of Care 127 mg/dl (65-105)
[2023-06-29] VITALS (11 sets, daily range): BP systolic 92–119; BP diastolic 54–72; PULSE 86–110; RESP 18–20; TEMP 36.4–36.8; O2SAT 96–100
[2023-06-29 00:09] LABS: Glucose Point of Care 124 mg/dl (65-105)
[2023-06-29] MEDS: chlordiazePOXIDE (*CRX) 25 MG CAPSULE PO ×2 (00:17→05:33)
[2023-06-29] MEDS: MORPHINE SULFATE (*CRX) 2 MG/ML INJ IV PUSH ×3 (03:13→14:08)
[2023-06-29 05:41] LABS: Basophils Absolute Auto 0.1 K/mm3 (0.0-0.1); Basophils Percent Auto 1.2 % (0.2-1.2); Eosinophils Absolute Auto 0.1 K/mm3 (0-0.3); Hematocrit 28.5 % (37.0-47.0); Hemoglobin 8.7 g/dL (12.0-15.0); Immature Granulocyte Absolute 0.24 K/mm3 (0.00-0.031); Immature Granulocyte Percent A 5.9 % (0-0.5); Immature Platelet Fraction Pct 6.4 % (0.9-11.2); Lymphocytes Absolute Auto 1.39 K/mm3 (0.9-3.2); Mean Corpuscular HGB Conc 30.5 g/dl (32-36); Mean Corpuscular Hemoglobin 25.7 pg (26-34); Mean Corpuscular Volume 84.1 fl (80-100); Mean Platelet Volume 10.6 fl (7.4-10.4); Monocytes Absolute Auto 0.6 K/mm3 (0.1-0.6); Monocytes Percent Auto 13.9 % (2.6-8.5); Neutrophils Absolute Auto 1.8 K/mm3 (1.3-6.7); Nucleated Red Blood Cells Perc 0.5 % (0.0-0.2); Platelet Count Result 100 k/mm3 (150-375); Red Blood Count 3.39 M/mm3 (4.2-5.4); Red Cell Distribution Width 24.9 % (11.5-14.5); White Blood Count 4.1 K/mm3 (4.5-10.0)
[2023-06-29] MEDS: metroNIDAZOLE 500 MG/ISO 100ML 500 MG/100 ML BAG 100 MG IVPB ×3 (05:45→21:09)
[2023-06-29 05:56] LABS: Alanine Aminotransferase 28 U/L (6-35); Albumin Level 3.3 g/dL (3.5-5.1); Alkaline Phosphatase 182 U/L (38-126); Anion Gap 8 mmol/L (8-16); Aspartate Amino Transferase 95 U/L (14-36); Bilirubin,Total 5.8 mg/dL (0.2-1.3); Calcium 8.4 mg/dL (8.4-10.2); Carbon Dioxide 29 mmol/L (22-30); Chloride 100 mmol/L (98-107); Estimated CRCL calculation 150 ml/min; Estimated Glomerular Filt Rate > 60; Glucose 101 mg/dL (65-110); Potassium 3.2 mmol/L (3.4-5.0); Sodium 137 mmol/L (137-145)
[2023-06-29 05:59] LABS: Blood Urea Nitrogen < 2 mg/dL (7-17); Phosphorus < 1.0 mg/dL (2.5-4.5)
[2023-06-29 06:30] LABS: Glucose Point of Care 113 mg/dl (65-105)
[2023-06-29 06:32] LABS: Anisocytosis 1+ (NORMAL); Platelet Estimate Decreased (Adequate); Schistocytes None Seen (NORMAL); Stomatocytes 2+ (NORMAL)
--- NOTE | 2023-06-29 08:24 | PM.IMPN ---
Progress Note: A&P Assessment and Plan (1) Anemia: Code(s): D64.9 - Anemia, unspecified Status: Acute (2) Alcoholic pancreatitis: Qualifiers: Acute pancreatitis complication: unspecified Chronicity: acute Qualified Code(s): K85.20 - Alcohol induced acute pancreatitis without necrosis or infection Code(s): K85.20 - Alcohol induced acute pancreatitis without necrosis or infection Status: Acute (3) Transaminitis: Code(s): R74.01 - Elevation of levels of liver transaminase levels Status: Acute Assessment and Plan: elevated liver enzymes -fatty liver -will need to follow-up outpatient for ongoing management (4) Alcohol abuse: Code(s): F10.10 - Alcohol abuse, uncomplicated Status: Acute (5) Hypokalemia due to excessive gastrointestinal loss of potassium: Code(s): E87.6 - Hypokalemia Status: Acute Plan s/p: POD 3 EGD impression: Reflux esophagitis, grade 1 with erythema ( Nancy was present in the distal esophagus) -gastritis -suspected hemorrhagic gastritis -H pylori pending -add pantoprazole 40 mg once daily for 3 weeks at discharge Anemia: chronic hx of macrocytic indices?Hgb: 8.2 -GI will try low-fat diet --continue telemetry monitoring -continue IV PPI 40mg BID -maintain hgb above 8 - check vitals q.4 hrs Hypokalemia: Potassium 3.2, magnesium is 2.0 -continue potassium chloride 40 mEq IVPB once -recheck BMP in the a.m -continue to telemetry monitoring Alcohol withdrawals:?hx of alcohol abuse, reports 5th of alcohol daily -continue telemetry monitoring -initiate CIWA protocol -recheck CBC, CMP, in the a.m. - give? scheduled Ativan q.6 hrs -consult care coordination for abuse/rehabilitation -continue seizure precautions -continue IV thiamine 100 mg daily for 5 days then switch to p.o. daily, pharmacy consulted, dose adjusted -Librium 25 mg has been reduced to p.r.n. every 6 hours as needed for CIWA greater than 15 Pancreatitis?lipase 876, trending down, AST 129, ALT 38 Continue telemetry monitoring -diet is being managed by GI Strict input and output monitoring Continue pain control q 4 hrs -continue metroNIDAZOLE 500 MG IV Q8 hrs -continue levofloxacin 750 mg IV every 24 hours -MRCP negative for common bile duct stones, shows pancreatitis -d/c fluids -chest x-ray reveals normal chest -recheck lipase in a.m. please see new pain management order: Morphine 1 mg q.4 hours p.r.n. for pain management ?Diet: Advanced as directed by GI Anticipated hospital stay:??greater than 2 days Quality VTE Prophylaxis VTE prophylaxis: mechanical ordered (SCDs ) Subjective Date/time seen: 06/29/23 08:24 Interval history: 37-year-old female with PMHx of alcohol abuse, alcohol withdrawal and seizures, cocaine use and depression presented to the emergency room for evaluation nausea and vomiting Narrative: The patient provided the following history.? Patient endorses a history of previous hospitalizations for alcohol withdrawal, she reports a history withdrawal seizures, she states for the past 7 days she has had nausea vomiting she admits to moderate use alcohol citing she drinks approximately a 5th of vodka daily for the past 5 years.? She states she has been with frequent vomiting for past week, last few days she has noticed blood-tinged vomit states that has since resolved.? She denies any coffee-ground emesis.? Patient reports generalized abdominal pain that extends from her ribs and epigastrium down into her lower quadrant which she is attributing to frequent vomiting.? Patient also reports generalized anterior chest wall pain, she describes as tight, nonradiating, reproducible 3/10.? She denies any fever, chills, shortness of breath, cough or congestion.? Patient reports a small amount of bright red blood per rectum when she wipes, she attributes this to her hemorrhoids, she denies any melena.? Patient states her last alcohol drink was
[2023-06-29] MEDS: THIAMINE HCL 200 MG/2 ML VIAL 100 MG IV PUSH (08:30)
[2023-06-29] MEDS: PANTOPRAZOLE SODIUM IV 40 MG VIAL IV PUSH ×2 (08:30→21:09)
[2023-06-29] MEDS: ONDANSETRON INJ 4 MG/2 ML VIAL IV PUSH (08:31)
[2023-06-29] MEDS: levoFLOXacin 750 MG/D5W 150 ML 750 MG/150 ML BAG 100 MG IVPB (08:31)
[2023-06-29] MEDS: FOLIC ACID 1 MG/0.2 ML INJ IV PUSH (08:31)
[2023-06-29] MEDS: LIPASE/AMYLASE/PROTEASE 12,000 UNITS CAP 1 CAP PO ×3 (08:31→18:22)
--- NOTE | 2023-06-29 09:34 | WPDGIPROGNO ---
Progress Note: A&P Assessment and Plan (1) Alcohol abuse: Code(s): F10.10 - Alcohol abuse, uncomplicated Status: Acute Assessment and Plan: she continues to drink regularly although she states that she has had very little for the past several days because she has been extremely nauseated. (2) Anemia: Code(s): D64.9 - Anemia, unspecified Status: Acute Assessment and Plan: Although her hemoglobin is usually low and has macrocytic indices it was thought to be due to alcohol abuse having bone marrow suppression, she now has a significant drop her hemoglobin and she did vomit some blood shortly before admission. counts remained stable (3) Stool guaiac positive: Code(s): R19.5 - Other fecal abnormalities Status: Acute Assessment and Plan: she has had no evidence of bleeding while here. EGD was negative for ulcers or other source of bleeding. There was mild diffuse gastritis likely due to alcohol. Alcoholic gastritis resolved rather quickly and probably would have looked more severe several days ago. (4) Alcoholic pancreatitis: Qualifiers: Acute pancreatitis complication: unspecified Chronicity: acute Qualified Code(s): K85.20 - Alcohol induced acute pancreatitis without necrosis or infection Code(s): K85.20 - Alcohol induced acute pancreatitis without necrosis or infection Status: Acute Assessment and Plan: Once again she has acute pancreatitis. Her lipase was [address] scan this time does not show pancreatitis but does show possible gallbladder sludge and hepatic steatosis. Still having significant pain requiring narcotics. I told her we cannot advance her diet until her pain is better and in fact I think we should give her clear liquids today. MRCP is negative for biliary cause of pancreatitis. Common bile duct is clear Her pain continues. Also lipase is very slow to come down. I am concerned about her continued pain. Resting her gut did not seem to help so I will go ahead start her on a low-fat diet but told her to eat small portions. (5) Transaminitis: Code(s): R74.01 - Elevation of levels of liver transaminase levels Status: Acute Assessment and Plan: She is known to have hepatic steatosis. I have told her in the past and again today that continued drinking is Almost certain to lead to cirrhosis. she admits that she has been unsuccessful in trying to stop drinking Transaminases are slowly decreasing but bilirubin actually has increased today to 4.5. 06/29/2023 bilirubin is even higher today, 5.8 transaminases are stable not much change. Nothing on MRCP to suggest biliary problem. Plan Cutting back to clear liquids do not seem to have any benefit. Because early refeeding is a trend with acute pancreatitis and has been shown not to be harmful to recovery I will therefore let her try a low-fat diet again, supplemented by pancreatic enzymes. There was a tiny gallstones seen on CT. I will obtain MRCP to make sure that we are not missing anything and to get better understanding of the current situation with the pancreas. MRCP did not show any evidence of biliary obstruction such as choledocholithiasis. Abnormal liver functions therefore likely all due to her alcohol abuse, alcoholic hepatitis. I told her that we are going to have to follow up with her in the office but that she definitely needs to come to [facility] with the alcohol and give it up completely. Subjective Date/time seen: 06/29/23 09:34 the patient is in bed, appears comfortable, chatting on the phone. She states however that she continues to have pain which is constant. Going on a clear liquid diet did not seem to benefit her. I told her that I am concerned that she may be developing chronic pancreatitis. Normally however this would occur after having several acute episodes which has not been the case with her. She
[2023-06-29] MEDS: POTASSIUM PHOS,M-BASIC-D-BASIC 40 MMOL in SODIUM CHLORIDE 0.9% IV 250 ML 43.89 MMOL IVPB (10:33)
[2023-06-29 12:44] LABS: Lipase 659 U/L (23-300)
[2023-06-29 13:08] LABS: Glucose Point of Care 175 mg/dl (65-105)
[2023-06-29 17:17] LABS: Glucose Point of Care 113 mg/dl (65-105)
[2023-06-29] MEDS: SODIUM CHLORIDE 0.9% IV 500 ML IV CONT (19:08)
[2023-06-29] MEDS: ALPRAZolam (*CRX) 0.25 MG TABLET PO (21:09)
[2023-06-29] MEDS: MORPHINE SULFATE (*CRX) 2 MG/ML INJ 1 MG IV PUSH (21:09)
[2023-06-30] VITALS (9 sets, daily range): BP systolic 95–117; BP diastolic 54–78; PULSE 88–109; RESP 15–20; TEMP 36.2–37; O2SAT 97–100
[2023-06-30 00:17] LABS: Glucose Point of Care 139 mg/dl (65-105)
[2023-06-30] MEDS: metroNIDAZOLE 500 MG/ISO 100ML 500 MG/100 ML BAG 100 MG IVPB (05:03)
[2023-06-30 06:18] LABS: Basophils Percent Auto 0.7 % (0.2-1.2); Eosinophils Absolute Auto 0.1 K/mm3 (0-0.3); Eosinophils Percent Auto 1.6 % (0-4.4); Immature Granulocyte Absolute 0.21 K/mm3 (0.00-0.031); Immature Granulocyte Percent A 4.8 % (0-0.5); Immature Platelet Fraction Pct 6.5 % (0.9-11.2); Lymphocytes Absolute Auto 1.34 K/mm3 (0.9-3.2); Lymphocytes Percent Auto 30.6 % (18.3-44.2); Mean Corpuscular HGB Conc 29.6 g/dl (32-36); Mean Corpuscular Hemoglobin 25.9 pg (26-34); Mean Corpuscular Volume 87.4 fl (80-100); Mean Platelet Volume 10.5 fl (7.4-10.4); Monocytes Absolute Auto 0.7 K/mm3 (0.1-0.6); Monocytes Percent Auto 15.3 % (2.6-8.5); Neutrophils Absolute Auto 2.1 K/mm3 (1.3-6.7); Nucleated Red Blood Cells Perc 0.7 % (0.0-0.2); Platelet Count Result 102 k/mm3 (150-375); Red Blood Count 3.09 M/mm3 (4.2-5.4); Red Cell Distribution Width 25.6 % (11.5-14.5); White Blood Count 4.4 K/mm3 (4.5-10.0)
[2023-06-30 06:32] LABS: Glucose Point of Care 110 mg/dl (65-105)
[2023-06-30 06:35] LABS: Anion Gap 8 mmol/L (8-16); Carbon Dioxide 24 mmol/L (22-30); Chloride 105 mmol/L (98-107); Estimated CRCL calculation 150 ml/min; Estimated Glomerular Filt Rate > 60; Glucose 107 mg/dL (65-110); Potassium 3.2 mmol/L (3.4-5.0); Sodium 137 mmol/L (137-145)
[2023-06-30 06:36] LABS: Alanine Aminotransferase 23 U/L (6-35); Alkaline Phosphatase 176 U/L (38-126); Aspartate Amino Transferase 81 U/L (14-36); Bilirubin,Total 5.1 mg/dL (0.2-1.3); Calcium 8.3 mg/dL (8.4-10.2); Magnesium 1.7 mg/dL (1.6-2.3); Phosphorus 1.1 mg/dL (2.5-4.5)
[2023-06-30 08:56] LABS: Blood Urea Nitrogen < 2 mg/dL (7-17)
[2023-06-30 09:07] LABS: Anisocytosis 1+ (NORMAL); Hypochromasia 2+ (NORMAL); Macrocytosis 1+ (NORMAL); Schistocytes None Seen (NORMAL); Stomatocytes 2+ (NORMAL)
[2023-06-30] MEDS: PANTOPRAZOLE SODIUM IV 40 MG VIAL IV PUSH ×2 (10:04→20:54)
[2023-06-30] MEDS: FOLIC ACID 1 MG/0.2 ML INJ IV PUSH (10:04)
[2023-06-30] MEDS: CALCIUM CARBONATE (TUMS) 500 MG (200 MG ELEMENTAL) PO (10:04)
[2023-06-30] MEDS: LIPASE/AMYLASE/PROTEASE 12,000 UNITS CAP 1 CAP PO ×3 (10:04→18:17)
[2023-06-30] MEDS: THIAMINE HCL 200 MG/2 ML VIAL 100 MG IV PUSH (10:05)
[2023-06-30] MEDS: MORPHINE SULFATE (*CRX) 2 MG/ML INJ 1 MG IV PUSH ×3 (10:30→22:38)
--- NOTE | 2023-06-30 10:57 | ECG_ITS ---
Measurements Intervals [place] Rate: 95 P: 37 CT: 180 QRS: 43 QRSD: 100 T: 17 QT: 340 QTc: 429 Interpretive Statements SINUS RHYTHM INCOMPLETE RIGHT BUNDLE BRANCH BLOCK BORDERLINE ECG COMPARED TO ECG 06/26/2023 14:06:03 NO SIGNIFICANT CHANGES Electronically Signed On 06-30-2023 11:32:03 [employer] by Adolfo Mccoy D.O.
[2023-06-30] MEDS: LORazepam INJ (*CRX) 2 MG/ML VIAL IV PUSH ×2 (11:04→18:33)
[2023-06-30 11:36] LABS: Glucose Point of Care 125 mg/dl (65-105)
[2023-06-30 11:38] LABS: Troponin I < 0.012 ng/mL (0.000-0.034)
--- NOTE | 2023-06-30 11:52 | PM.IMPN ---
Progress Note: A&P Assessment and Plan (1) Anemia: Code(s): D64.9 - Anemia, unspecified Status: Acute (2) Alcoholic pancreatitis: Qualifiers: Acute pancreatitis complication: unspecified Chronicity: acute Qualified Code(s): K85.20 - Alcohol induced acute pancreatitis without necrosis or infection Code(s): K85.20 - Alcohol induced acute pancreatitis without necrosis or infection Status: Acute (3) Transaminitis: Code(s): R74.01 - Elevation of levels of liver transaminase levels Status: Acute Assessment and Plan: elevated liver enzymes -fatty liver -will need to follow-up outpatient for ongoing management (4) Alcohol abuse: Code(s): F10.10 - Alcohol abuse, uncomplicated Status: Acute (5) Hypokalemia due to excessive gastrointestinal loss of potassium: Code(s): E87.6 - Hypokalemia Status: Acute Plan Chest Tightness in the a.m, reports chest pain with deep inspiration, denies shortness of breaths -check ECG, sinus rhythm, no significant changes when compared to 06/26/2023 -negative troponin -continue telemetry monitoring s/p: POD 4 EGD impression: Reflux esophagitis, grade 1 with erythema ( Nancy was present in the distal esophagus) -gastritis -suspected hemorrhagic gastritis -H pylori pending -add pantoprazole 40 mg once daily for 3 weeks at discharge Anemia: chronic hx of macrocytic indices?Hgb: 8.2 -GI will try low-fat diet --continue telemetry monitoring -continue IV PPI 40mg BID -maintain hgb above 8 - check vitals q.4 hrs Hypokalemia: Potassium 3.2, magnesium is 1.7, phos is 1.1 -daily CMP in the a.m -continue to telemetry monitoring -give potassium phos 40 mmol/ IVPB Alcohol withdrawals:?hx of alcohol abuse, reports 5th of alcohol daily -continue telemetry monitoring -initiate CIWA protocol -recheck CBC, CMP, in the a.m. - give? scheduled Ativan q.6 hrs -consult care coordination for abuse/rehabilitation -continue seizure precautions -start thiamine HCL 100mg to P.O -Librium 25 mg has been reduced to p.r.n. every 6 hours as needed for CIWA greater than 15 Pancreatitis?lipase 659 trending down from 2497, AST 81, ALT normal Continue telemetry monitoring -diet is being managed by GI Strict input and output monitoring Continue pain control q 4 hrs - ID pharmacy consult appreciate recommendation and plan -d/c metroNIDAZOLE 500 MG IV Q8 hrs -d/c levofloxacin 750 mg IV every 24 hours -MRCP negative for common bile duct stones, shows pancreatitis -d/c fluids -chest x-ray reveals normal chest -recheck lipase in a.m. please see new pain management order: Morphine 1 mg q.4 hours p.r.n. for pain management ?Diet: Advanced as directed by GI Anticipated hospital stay:? would like to start d/c planing for pt Quality VTE Prophylaxis VTE prophylaxis: mechanical ordered (SCDs ) Subjective Date/time seen: 06/30/23 11:52 Interval history: Interval history: 37-year-old female with PMHx of alcohol abuse, alcohol withdrawal and seizures, cocaine use and depression presented to the emergency room for evaluation nausea and vomiting Narrative: The patient provided the following history.? Patient endorses a history of previous hospitalizations for alcohol withdrawal, she reports a history withdrawal seizures, she states for the past 7 days she has had nausea vomiting she admits to moderate use alcohol citing she drinks approximately a 5th of vodka daily for the past 5 years.? She states she has been with frequent vomiting for past week, last few days she has noticed blood-tinged vomit states that has since resolved.? She denies any coffee-ground emesis.? Patient reports generalized abdominal pain that extends from her ribs and epigastrium down into her lower quadrant which she is attributing to frequent vomiting.? Patient also reports generalized anterior chest wall pain, she describes as tight, nonradiating, reproducible 08/21
[2023-06-30 13:15] LABS: Hepatitis B Surface Antigen Negative (Negative)
[2023-06-30 13:21] LABS: HAV RESULT Negative (Negative); Hepatitis B Core IgM Result Negative (Negative)
[2023-06-30 13:32] LABS: Triglycerides 241 mg/dL (<150)
[2023-06-30 13:32] LABS: Hepatitis C Virus Antibody Negative (Negative)
[2023-06-30] MEDS: POTASSIUM PHOS,M-BASIC-D-BASIC 40 MMOL in SODIUM CHLORIDE 0.9% IV 250 ML 43.89 MMOL IVPB (13:47)
[2023-06-30 18:14] LABS: Glucose Point of Care 141 mg/dl (65-105)
[2023-07-01] VITALS: BP 93/53; PULSE 95; PULSE 96; RESP 17; TEMP 36.9; O2SAT 97
[2023-07-01] MEDS: MORPHINE SULFATE (*CRX) 2 MG/ML INJ 1 MG IV PUSH (03:05)
[2023-07-01 04:00] VITALS: BP 97/55; PULSE 100; PULSE 105; RESP 15; TEMP 37.1; O2SAT 99
[2023-07-01 06:09] LABS: Basophils Percent Auto 0.8 % (0.2-1.2); Eosinophils Absolute Auto 0.1 K/mm3 (0-0.3); Eosinophils Percent Auto 1.6 % (0-4.4); Hematocrit 28.3 % (37.0-47.0); Hemoglobin 8.2 g/dL (12.0-15.0); Immature Granulocyte Absolute 0.21 K/mm3 (0.00-0.031); Immature Granulocyte Percent A 4.1 % (0-0.5); Lymphocytes Absolute Auto 1.72 K/mm3 (0.9-3.2); Lymphocytes Percent Auto 33.5 % (18.3-44.2); Mean Corpuscular Hemoglobin 25.6 pg (26-34); Mean Corpuscular Volume 88.4 fl (80-100); Mean Platelet Volume 10.5 fl (7.4-10.4); Monocytes Absolute Auto 0.8 K/mm3 (0.1-0.6); Monocytes Percent Auto 15.4 % (2.6-8.5); Neutrophils Absolute Auto 2.3 K/mm3 (1.3-6.7); Neutrophils Percent Auto 44.6 % (45.5-73.1); Nucleated Red Blood Cells Perc 0.6 % (0.0-0.2); Platelet Count Result 124 k/mm3 (150-375); Red Cell Distribution Width 26.1 % (11.5-14.5); White Blood Count 5.1 K/mm3 (4.5-10.0)
[2023-07-01 06:14] LABS: Alanine Aminotransferase 22 U/L (6-35); Albumin Level 3.2 g/dL (3.5-5.1); Alkaline Phosphatase 168 U/L (38-126); Anion Gap 13 mmol/L (8-16); Aspartate Amino Transferase 80 U/L (14-36); Bilirubin,Total 5.1 mg/dL (0.2-1.3); Calcium 8.4 mg/dL (8.4-10.2); Carbon Dioxide 20 mmol/L (22-30); Chloride 103 mmol/L (98-107); Estimated CRCL calculation 150 ml/min; Estimated Glomerular Filt Rate > 60; Glucose 113 mg/dL (65-110); Magnesium 1.7 mg/dL (1.6-2.3); Phosphorus 2.6 mg/dL (2.5-4.5); Potassium 3.3 mmol/L (3.4-5.0); Sodium 136 mmol/L (137-145)
[2023-07-01 06:17] LABS: Blood Urea Nitrogen < 2 mg/dL (7-17)
--- NOTE | 2023-07-01 07:03 | WPDGIPROGNO ---
Progress Note: A&P Assessment and Plan (1) Alcohol abuse: Code(s): F10.10 - Alcohol abuse, uncomplicated Status: Acute Assessment and Plan: she continues to drink regularly although she states that she has had very little for the past several days because she has been extremely nauseated. She said that she is convinced that she needs to stop drinking. I told her do not just say that for might benefit because it is truly important that she stop for her health. (2) Anemia: Code(s): D64.9 - Anemia, unspecified Status: Acute Assessment and Plan: Although her hemoglobin is usually low and has macrocytic indices it was thought to be due to alcohol abuse having bone marrow suppression, she now has a significant drop her hemoglobin and she did vomit some blood shortly before admission. counts remained stable (3) Stool guaiac positive: Code(s): R19.5 - Other fecal abnormalities Status: Acute Assessment and Plan: she has had no evidence of bleeding while here. EGD was negative for ulcers or other source of bleeding. There was mild diffuse gastritis likely due to alcohol. Alcoholic gastritis resolved rather quickly and probably would have looked more severe several days ago. (4) Alcoholic pancreatitis: Qualifiers: Acute pancreatitis complication: unspecified Chronicity: acute Qualified Code(s): K85.20 - Alcohol induced acute pancreatitis without necrosis or infection Code(s): K85.20 - Alcohol induced acute pancreatitis without necrosis or infection Status: Acute Assessment and Plan: Once again she has acute pancreatitis. Her lipase was [address] scan this time does not show pancreatitis but does show possible gallbladder sludge and hepatic steatosis. Still having significant pain requiring narcotics. I told her we cannot advance her diet until her pain is better and in fact I think we should give her clear liquids today. MRCP is negative for biliary cause of pancreatitis. Common bile duct is clear Her pain continues. Also lipase is very slow to come down. I am concerned about her continued pain. Resting her gut did not seem to help so I will go ahead start her on a low-fat diet but told her to eat small portions. (5) Transaminitis: Code(s): R74.01 - Elevation of levels of liver transaminase levels Status: Acute Assessment and Plan: She is known to have hepatic steatosis. I have told her in the past and again today that continued drinking is Almost certain to lead to cirrhosis. she admits that she has been unsuccessful in trying to stop drinking Transaminases are slowly decreasing but bilirubin actually has increased today to 4.5. 06/29/2023 bilirubin is even higher today, 5.8 transaminases are stable not much change. Nothing on MRCP to suggest biliary problem. (6) Jaundice: Code(s): R17 - Unspecified jaundice Status: Acute Assessment and Plan: persistent hyperbilirubinemia suggest chronic liver disease. MRCP revealed no evidence of obstruction and a normal common bile duct without stones. I told her that we will need to follow this as an outpatient. Plan Cutting back to clear liquids do not seem to have any benefit. Because early refeeding is a trend with acute pancreatitis and has been shown not to be harmful to recovery I will therefore let her try a low-fat diet again, supplemented by pancreatic enzymes. There was a tiny gallstones seen on CT. I will obtain MRCP to make sure that we are not missing anything and to get better understanding of the current situation with the pancreas. MRCP did not show any evidence of biliary obstruction such as choledocholithiasis. Abnormal liver functions therefore likely all due to her alcohol abuse, alcoholic hepatitis. I told her that we are going to have to follow up with her in the office but that she definitely needs to come
[2023-07-01 07:35] LABS: Anisocytosis 2+ (NORMAL); Hypochromasia 2+ (NORMAL); Schistocytes None Seen (NORMAL); Target Cells 2+ (NORMAL)
[2023-07-01 08:00] VITALS: BP 98/58; PULSE 100; PULSE 103; RESP 16; TEMP 36.9; O2SAT 99
[2023-07-01] MEDS: PANTOPRAZOLE SODIUM IV 40 MG VIAL IV PUSH (10:01)
[2023-07-01] MEDS: THIAMINE HCL 50 MG TABLET PO (10:01)
[2023-07-01] MEDS: LIPASE/AMYLASE/PROTEASE 12,000 UNITS CAP 1 CAP PO ×2 (10:02→13:23)
[2023-07-01] MEDS: FOLIC ACID 1 MG/0.2 ML INJ IV PUSH (10:02)
[2023-07-01] MEDS: LIDOCAINE HCL 2% VISC SOLN 15 ML UDC PO (10:09)
[2023-07-01 12:00] VITALS: BP 108/60; PULSE 100; PULSE 114; RESP 16; O2SAT 98
--- NOTE | 2023-07-01 13:34 | PM.DS ---
DS: Admitting Diagnosis Discharge Date 07/01/2023 Admitting Diagnosis Acute pancreatitis DS: Discharge Diagnosis Discharge Diagnosis (1) Alcoholic pancreatitis: Qualifiers: Acute pancreatitis complication: unspecified Chronicity: acute Qualified Code(s): K85.20 - Alcohol induced acute pancreatitis without necrosis or infection Code(s): K85.20 - Alcohol induced acute pancreatitis without necrosis or infection Status: Acute (2) Anemia: Qualifiers: Iron deficiency anemia type: inadequate dietary iron intake Code(s): D64.9 - Anemia, unspecified Status: Acute DS: Summary Hospital Course Reason for hospitalization: 37-year-old female with PMHx of alcohol abuse, alcohol withdrawal and seizures, cocaine use and depression presented to the emergency room for evaluation nausea and vomiting Hospital Course: The patient provided the following history.? Patient endorses a history of previous hospitalizations for alcohol withdrawal, she reports a history withdrawal seizures, she states for the past 7 days she has had nausea vomiting she admits to moderate use alcohol citing she drinks approximately a 5th of vodka daily for the past 5 years.? She states she has been with frequent vomiting for past week, last few days she has noticed blood-tinged vomit states that has since resolved.? She denies any coffee-ground emesis.? Patient reports generalized abdominal pain that extends from her ribs and epigastrium down into her lower quadrant which she is attributing to frequent vomiting.? Patient also reports generalized anterior chest wall pain, she describes as tight, nonradiating, reproducible 3/10.? She denies any fever, chills, shortness of breath, cough or congestion.? Patient reports a small amount of bright red blood per rectum when she wipes, she attributes this to her hemorrhoids, she denies any melena.? Patient states her last alcohol drink was 1600 yesterday. 06/26/2022:?Pt seen this a.m., she c/o ongoing abdominal throughout the night, she repors requiring morphine q 4 hrs for pain, she states she had mild nausea without any vomiting. She describes her abdomen pain as diffuse, ordinates from her left side and spreads across her entire abdomen, citing feels like burning and stabbing pressure. She denies any loose stools at this time.?Pt is scheduled for EGD this a.m. she is currently receiving her 2nd unit of blood,2/2 that was ordered. She denies any other c/o at this time. 06/27/2023: Pt lying in the bed with mother by the bedside, she reports ongoing pain throughout the night, reports ongoing n/v after trying to eat dinner last night. Awaiting results from MRCP 06/28/2023:?pt seen this am she is resting with eyes closed easily arouses,she reports abdominal pain throughout the night, along with nausea,no vomiting. She states she awoke this am with feeling of chest tightness, anxiety, and abdominal pain. she reports her episode was resolved after getting her medication. 06/29/2023:??Patient resting in the bed, easily arouses she reports overnight events of having nightmares along with the moderate anxiety.? Patient continues to complain of ongoing abdominal pain, she denies any nausea or vomiting overnight or this mornin 06/30/2023: Pt seen this a.m she is resting in bed, with c/o ongoing chest tightness, reports her chest feels heavy with sharp pain when she takes a deep breath, she also admits this occurs in the morning,she states she has some anxiety usually in the mornings. She denies any n/v with her advanced diet. 07/01/2023: Pt seen this a.m. she is sitting up in the bed, in no acute distress eating her breakfast she denies any overnight events, she requests to be discharged patient states she is eating without any nausea or vomiting, she reports she will follow-up with GI doctor and her PCP after discharge. Status at Discharge Functional status at discharge: independent ambulation Time Spent with Patient Time attest
== END 2023-07-01 14:50 | disposition home or self-care (01) | DRG 439 ==
LOC: ANHED 06-25 07:28 → ANH2MED 06-25 09:04
PROVIDERS: Internal Medicine Gastroenterology; Nurse Practitioner; Physician Assistant; Student in an Organized Health Care Education/Training Program; Admitting Provider Internal Medicine; Emergency Provider Student in an Organized Health Care Education/Training Program; PCP Family Medicine Adolescent Medicine; Visit Provider Nurse Practitioner
PROC: 0DJ08ZZ Inspection of Upper Intestinal Tract, Via Natural or Artificial Opening Endoscopic (ICD-10-PCS; CPT 43235; principal; 2023-06-26 15:00)
DX: K85.20 Alcohol induced acute pancreatitis without necrosis or infection (principal); F10.139 Alcohol abuse with withdrawal, unspecified; Y90.6 Blood alcohol level of 120-199 mg/100 ml; R19.5 Other fecal abnormalities; R56.9 Unspecified convulsions; D64.9 Anemia, unspecified; E87.6 Hypokalemia; F14.90 Cocaine use, unspecified, uncomplicated; F41.9 Anxiety disorder, unspecified; F32.9 Major depressive disorder, single episode, unspecified; F17.210 Nicotine dependence, cigarettes, uncomplicated; K21.00 Gastro-esophageal reflux disease with esophagitis, without bleeding; K29.70 Gastritis, unspecified, without bleeding; K76.0 Fatty (change of) liver, not elsewhere classified; Z28.21 Immunization not carried out because of patient refusal; Z20.822 Contact with and (suspected) exposure to COVID-19
CPT/HCPCS: 36415; 36430; 71045; 71046; 71275; 74177; 74183; 76376; 76705; 80048; 80053; 80074; 80076; 80307; 81001; 81025; 82607; 82746; 82803; 82948; 83540; 83550; 83605; 83690; 83735; 84100; 84478; 84484; 85014; 85018; 85025; 85027; 85055; 85380; 85610; 85730; 86850; 86900; 86901; 86922; 87081; 87637; 93005; 96361; 96374; 96375; 96376; 99285; A9270; A9577; C9113; J1836; J1956; J2060; J2270; J2405; J2704; J3411; J3475; J3480; J7030; J7040; J7042; J7050; J7120; P9016; Q9967

== ENCOUNTER 2023-09-23 08:34 | Emergency (ER) | payer BC, SELFPAY ==
[2023-09-23] VITALS (8 sets, daily range): BP systolic 120; BP diastolic 90–110; PULSE 74–116; RESP 13–20; TEMP 36.6; O2SAT 96–100
--- NOTE | ~2023-09-23 | US_ITS ---
EXAMINATION: US abdomen limited DATE: 09/23/2023 14:01 INDICATION: Abdominal pain. TECHNIQUE: Multiple grayscale and Doppler ultrasound images of the abdomen were obtained. COMPARISON: CT abdomen and pelvis 09/23/2023 FINDINGS: The visualized portions of the head and body of pancreas are normal. There is diffuse hepat ic steatosis. There is normal flow in main portal vein. The gallbladder is normal in size and contain s sludge. No gallstones or gallbladder wall thickening. There was no sonographic Fitzgerald sign. The com mon duct is normal and measures 4 mm. IMPRESSION: 1. Diffuse hepatic steatosis. Reviewed, dictated and finalized at location A.
--- NOTE | ~2023-09-23 | CT_ITS ---
EXAMINATION: CT abdomen pelvis w con DATE: 09/23/2023 12:06 INDICATION: Abdominal pain. Vomiting. TECHNIQUE: Computed tomography (CT) of the abdomen and pelvis was performed with 100 mL Omnipaque 350 intravenous contrast. Automated exposure control and iterative reconstruction technique were employe d. The dose-length product was 443.75 mGy-cm. COMPARISON: CT abdomen and pelvis 06/25/2023 FINDINGS: The visualized portions of the lung bases demonstrate calcified nodule in right lower lobe, consistent with old granulomatous disease. No pleural effusion. The heart size is normal. No pericar dial effusion. There is diffuse hepatic steatosis. There is a gallstone in the gallbladder, which is distended. The spleen, pancreas, adrenal glands, and kidneys are normal. There are no dilated loops o f bowel. The appendix is normal. There are no pathologically enlarged lymph nodes. There is no free i ntraperitoneal fluid. There is mild thoracic and lumbar spondylosis. IMPRESSION: 1. Cholelithiasis. Gallbladder distention may be secondary to fasting or acute cholecystitis. Correla te with physical exam. 2. Diffuse hepatic steatosis. Reviewed, dictated and finalized at location A. IMPRESSION: 1. Cholelithiasis. Gallbladder distention may be secondary to fasting or acute cholecystitis. Correlate with physical exam. 2. Diffuse hepatic steatosis.
--- NOTE | 2023-09-23 08:37 | ED.NAVMDI ---
HPI - Nausea/Vomiting/Diarrhea General Chief complaint: Nausea/Vomiting/Diarrhea Stated complaint: n/v Time Seen by Provider: 09/23/23 08:37 Source: patient Mode of arrival: ambulatory Limitations: no limitations History of Present Illness HPI Narrative: 38 years old white female drove herself to the hospital complaining of nausea and vomiting started for the last 4 days. Patient report upper respiratory cold symptoms started a, patient's boyfriend have diarrhea a few days ago. Patient complaining intermittent abdominal cramps with the nausea and vomiting. Denied any fever. Vomiting get worse any time she eat or drink Related Data Allergies Allergy/AdvReac Type Severity Reaction Status Date / Time Penicillins Allergy Severe swelling Verified 06/26/23 10:09 clindamycin Allergy Intermediate Swelling Verified 06/26/23 10:09 cefaclor Allergy Unknown Swelling Verified 06/26/23 10:09 cephalexin Allergy Unknown UNKNOWN Verified 06/26/23 10:09 tramadol AdvReac Severe Mirgraines Verified 06/26/23 10:09 Review of Systems Review of Systems: All systems reviewed & are unremarkable except as noted in HPI and below PMFSH Past Medical History Medical History Alcohol abuse Alcohol related seizure Anxiety Chronic anemia ROSEANN II (cervical intraepithelial neoplasia II) Cocaine use History of x2 Vaginal delivery x 2 Surgical History Surgical History History of loop electrical excision procedure (LEEP) (10/2020) Family History Family History Sibling Alcoholism Social History Social History Social History: She lives at home with her boyfriend and 2 daughters. Her daughters are 13 and 16 years of age. 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 She has smoked half pack of cigarettes since she was 16. She occasionally will snort cocaine. Her boyfriend has a history of drug abuse. She denies any IV drug use. She drinks between a pint to a 5th of alcohol a day. Code status: Full code Surrogate decision maker: Mother Smoking packs per day: 0.5 Smoking cigarettes per day: 10.0 Years smoked: 20 Smoking pack-years: 10.00 Smoking status: Current every day smoker Second hand tobacco smoke exposure: No Alcohol intake: current Drinks per week: 4 Substance use: current Substance use type: marijuana Other substance usage details: 1 pint to 1 fifth of vodka daily. Last use: Cocaine 11/02/21 Do You Feel Safe in your Home?: Yes Lack of Transportation: No Lack of Food: Never True Current Housing: I Have Housing Concerned About Future Housing: No Difficulty Paying Gas/Electric Bills: No Difficulty Paying for Meds: No Currently Unemployed: No Education: Associate Degree Difficulty w/ Childcare or Family Care: No Living arrangements: with family Occupation/Education: occupation Spiritual care concerns: No Agree to blood products: Yes Exam Narrative: General appearance: Well-developed, well-nourished Skin: Normal color Head: Normocephalic, nontraumatic Eyes: Clear conjunctiva ENT: Oropharynx normal, ears normal, nose normal Neck: Supple, nontender Chest and respiratory: Airway patent, no respiratory distress, no accessory muscle use Heart: Regular rate/rhythm Abdomen: Soft, diffuse right abdominal tenderness mainly right upper quadrant, no organomegaly, quiet bowel sounds Vascular: Normal peripheral pulses, normal capillary refill. Musculoskeletal: Normal range of motion, nontender back Neurologic: Alert and oriented ?3, DAY CAMP COUNSELOR is normal as tested, no gross motor deficit
[2023-09-23] MEDS: SODIUM CHLORIDE 0.9% IV 2,000 ML 999 ML IV CONT (08:50)
[2023-09-23] MEDS: ONDANSETRON INJ 4 MG/2 ML VIAL 8 MG IV PUSH (08:51)
[2023-09-23 09:16] LABS: Basophils Percent Auto 0.5 % (0.2-1.2); Eosinophils Absolute Auto 0.1 K/mm3 (0-0.3); Eosinophils Percent Auto 1.1 % (0-4.4); Hematocrit 34.7 % (37.0-47.0); Hemoglobin 10.9 g/dL (12.0-15.0); Immature Granulocyte Absolute 0.05 K/mm3 (0.00-0.031); Immature Granulocyte Percent A 0.8 % (0-0.5); Immature Platelet Fraction Pct 5.1 % (0.9-11.2); Lymphocytes Absolute Auto 2.94 K/mm3 (0.9-3.2); Lymphocytes Percent Auto 46.3 % (18.3-44.2); Mean Corpuscular HGB Conc 31.4 g/dl (32-36); Mean Corpuscular Hemoglobin 30.3 pg (26-34); Mean Corpuscular Volume 96.4 fl (80-100); Monocytes Absolute Auto 0.5 K/mm3 (0.1-0.6); Monocytes Percent Auto 8.2 % (2.6-8.5); Neutrophils Absolute Auto 2.7 K/mm3 (1.3-6.7); Neutrophils Percent Auto 43.1 % (45.5-73.1); Nucleated Red Blood Cells Perc 0.3 % (0.0-0.2); Platelet Count Result 137 k/mm3 (150-375); Red Cell Distribution Width 25.2 % (11.5-14.5); White Blood Count 6.4 K/mm3 (4.5-10.0)
[2023-09-23 09:20] LABS: Alanine Aminotransferase 22 U/L (6-35); Albumin Level 4.7 g/dL (3.5-5.1); Alkaline Phosphatase 118 U/L (38-126); Anion Gap 14 mmol/L (4-12); Aspartate Amino Transferase 86 U/L (14-36); Bilirubin,Total 2.3 mg/dL (0.2-1.3); Blood Urea Nitrogen 23 mg/dL (7-17); Carbon Dioxide 27 mmol/L (22-30); Chloride 97 mmol/L (98-107); Estimated CRCL calculation 110 ml/min; Estimated Glomerular Filt Rate > 60; Glucose 127 mg/dL (65-110); Lipase 131 U/L (23-300); Sodium 138 mmol/L (137-145)
[2023-09-23 09:48] LABS: Anisocytosis 2+; Macrocytosis 1+ (NORMAL); Platelet Estimate Slightly Decreased (Adequate); Schistocytes None Seen; Stomatocytes 1+; Target Cells 1+
[2023-09-23] MEDS: MORPHINE SULFATE (*CRX) 4 MG/ML INJ IV PUSH (10:07)
[2023-09-23 12:03] LABS: Bacteria Urine 4+ /hpf; Need Manual Microscopic Reviewed; RBC Urine 21-50 /hpf (0-2); Squamous Epithelial Cell Urine Moderate /hpf (Few); WBC Urine 21-50 /hpf (0-3)
[2023-09-23 12:04] LABS: Appearance Urine Turbid (Clear); Bilirubin Urine 2+ (Negative); Blood Urine Negative (Negative); Color Urine Dark Yellow (Yellow); Glucose Urine UA Negative (Negative); Ketones Urine Trace mg/dL (Negative); Leukocyte Esterase Ur 2+ LEU/UL (Negative); Nitrate Urine Positive (Negative); Protein Urine 2+ mg/dL (Negative); Specific Grav Ur 1.041 (1.001-1.035); pH Urine 5.5 (5.0-9.0)
[2023-09-23 12:05] LABS: Add Urine Microscopic? YES
[2023-09-23] MEDS: NITROFURANTOIN MONOHYD MACROCR 100 MG CAP PO (15:25)
== END 2023-09-23 15:40 | disposition home or self-care (01) ==
PROVIDERS: Emergency Provider Emergency Medicine; PCP Family Medicine Adolescent Medicine
DX: K52.9 Noninfective gastroenteritis and colitis, unspecified (principal); N39.0 Urinary tract infection, site not specified; E87.6 Hypokalemia; F17.210 Nicotine dependence, cigarettes, uncomplicated
CPT/HCPCS: 36415; 74177; 76705; 80053; 81001; 81025; 83690; 85025; 85055; 87077; 87086; 87088; 87186; 96361; 96374; 96375; 99284; A9270; J2270; J2405; J7030; Q9967

== ENCOUNTER 2023-10-31 00:20 | Emergency (ER) | payer BC, SELFPAY ==
[2023-10-31] VITALS (9 sets, daily range): BP systolic 115–132; BP diastolic 79–97; PULSE 100–118; RESP 8–22; TEMP 36.8; O2SAT 95–99
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
[2023-10-31] MEDS: SODIUM CHLORIDE 0.9% IV 1,000 ML 999 ML IV CONT (03:55)
[2023-10-31] MEDS: ONDANSETRON INJ 4 MG/2 ML VIAL IV PUSH (03:56)
[2023-10-31 04:07] LABS: Basophils Absolute Auto 0.1 K/mm3 (0.0-0.1); Basophils Percent Auto 0.6 % (0.2-1.2); Eosinophils Percent Auto 0.5 % (0-4.4); Hematocrit 34.7 % (37.0-47.0); Hemoglobin 11.3 g/dL (12.0-15.0); Immature Granulocyte Absolute 0.03 K/mm3 (0.00-0.031); Immature Granulocyte Percent A 0.4 % (0-0.5); Immature Platelet Fraction Pct 4.6 % (0.9-11.2); Lymphocytes Absolute Auto 3.86 K/mm3 (0.9-3.2); Lymphocytes Percent Auto 46.7 % (18.3-44.2); Mean Corpuscular HGB Conc 32.6 g/dl (32-36); Mean Corpuscular Hemoglobin 30.4 pg (26-34); Mean Corpuscular Volume 93.3 fl (80-100); Mean Platelet Volume 10.1 fl (7.4-10.4); Monocytes Absolute Auto 0.4 K/mm3 (0.1-0.6); Monocytes Percent Auto 5.1 % (2.6-8.5); Neutrophils Absolute Auto 3.9 K/mm3 (1.3-6.7); Neutrophils Percent Auto 46.7 % (45.5-73.1); Platelet Count Result 93 k/mm3 (150-375); Red Blood Count 3.72 M/mm3 (4.2-5.4); Red Cell Distribution Width 22.3 % (11.5-14.5); White Blood Count 8.3 K/mm3 (4.5-10.0)
[2023-10-31 04:13] LABS: Hypochromasia 1+; Platelet Estimate Decreased (Adequate)
[2023-10-31 04:14] LABS: Anisocytosis 1+; Ovalocytes 1+; Schistocytes None Seen
[2023-10-31] MEDS: THERAPEUTIC MULTIVITAMINS/MINERALS TAB (*BKC) 1 TABLET PO (04:39)
[2023-10-31 04:44] LABS: Alanine Aminotransferase 81 U/L (6-35); Albumin Level 4.8 g/dL (3.5-5.1); Alkaline Phosphatase 158 U/L (38-126); Anion Gap 18 mmol/L (4-12); Aspartate Amino Transferase 260 U/L (14-36); Bilirubin,Total 1.5 mg/dL (0.2-1.3); Blood Urea Nitrogen 13 mg/dL (7-17); Calcium 8.7 mg/dL (8.4-10.2); Carbon Dioxide 23 mmol/L (22-30); Chloride 102 mmol/L (98-107); Estimated CRCL calculation 127 ml/min; Estimated Glomerular Filt Rate > 60; Glucose 74 mg/dL (65-110); Potassium 3.4 mmol/L (3.4-5.0); Sodium 143 mmol/L (137-145)
[2023-10-31 04:59] LABS: Ethanol 340 mg/dL (<10)
== END 2023-10-31 06:22 | disposition home or self-care (01) ==
PROVIDERS: Emergency Provider Emergency Medicine; PCP Family Medicine Adolescent Medicine
DX: F10.129 Alcohol abuse with intoxication, unspecified (principal); Y90.8 Blood alcohol level of 240 mg/100 ml or more; D64.9 Anemia, unspecified; F17.210 Nicotine dependence, cigarettes, uncomplicated; Z79.899 Other long term (current) drug therapy
CPT/HCPCS: 36415; 80053; 80307; 82607; 85025; 85055; 96361; 96365; 96375; 99284; A9270; J2405; J3411; J3475; J7030; J7121

== ENCOUNTER 2024-12-27 08:16 | Emergency (ER) | payer OTHER, SELFPAY ==
--- OUTSIDE RECORDS SUMMARY | 2024-12-27 08:19 | XMS_ITS | Referral Summary ---
Author Organization [facility] Address [address] [place] [id number] Care Team Providers Care Continuous Improvement Director Name Role Phone Gordon Padilla MD Primary Care Prov ider Allergies Active Allergy Reactions Criticality Noted Date Comments Penicillins Anaphylaxis High 11/13/2023 Tramadol Headache Low 11/13/2023 Social History Tobacco Use Types Packs/Day Years Used Date Smoking Tobacco: Never Assessed Personal Safety Answer Date Recorded Have you ever been in or are you currently in a harmful physical or emotional relationship or is someone making you feel afraid or unsafe? Denies 11/13/2023 Comments Unknown Sex and Gender Information Value Date Recorded Sex Assigned at Not on file Legal Sex Female 10:43 AM CDT Gender Identity Not on file Sexual Orientation Not on file Last Filed Vital Signs Vital Sign Reading Time Taken Comments Blood Pressure 115/75 11/13/2023 1:45 PM CDT Pulse 123 11/13/2023 1:45 PM CDT Temperature 37.2 C (99 F) 11/13/2023 10:47 AM CDT Respiratory Rate 18 11/13/2023 1:45 PM CDT Oxygen Saturation 100% 11/13/2023 1:45 PM CDT Inhaled Oxygen Concentration - - Weight 72.6 kg (160 lb) 11/13/2023 10:47 AM CDT Height 182.9 cm (6') 11/13/2023 10:47 AM CDT Body Mass Index 21.7 11/13/2023 10:47 AM CDT Plan of Treatment Not on file Insurance [employer] Care Teams Continuous Improvement Director Relationship Specialty Start Date End Date Gordon Padilla MD [address] [place] [address] PCP - General Family Medicine 11/13/23
--- OUTSIDE RECORDS SUMMARY | 2024-12-27 08:19 | XMS_ITS | Clinical Summary ---
Author Organization [facility] Address [address] [place] [address] Care Team Providers Care Job Lithographer Name Role Phone Gordon Padilla MD Primary [...] 11/13/2023 10:47 AM CDT Plan of Treatment Health Maintenance Due Date Last Done Comments Cervical Cancer Screening 1987 Depression Screening 1987 Hepatitis C Screening 1987 DTaP/Tdap/Td Vaccine (1 - Tdap) 1998 Varicella Vaccines (1 of 2 - 13+ 2-dose series) 2000 Hepatitis B Screening 2005 Regular Well Visit/Exam 18-64 2005 Influenza Vaccine (Season Ended) 2025 HPV Vaccines Aged Out No longer eligi ble based on patient's age to complete this topic Pneumococcal vaccine <65 Aged Out No longer eligible based on patient's age to complete this topic Insurance [facility] [email or web address] Care Teams Job Lithographer Relationship Specialty Start Date End Date Gordon Padilla MD [address] [place] [address] PCP - General Family Medicine 11/13/23
--- OUTSIDE RECORDS SUMMARY | 2024-12-27 08:19 | XMS_ITS | Clinical Summary ---
Author Organization [facility] Address [address] [place] [id number] Care Team Providers Care Shipping Agent Name Role Phone Unavailable Primary Care Provider Unavailabl e Immunizations Immunization Administration Dates Next Due Covid-19 Vaccine, Vector-nr, Rs-ad26, Pf, 0.5 Ml (DIY/[employer]) 03/09/2021 Social History Tobacco Use Types Packs/Day Years Used Date Smoking Tobacco: Never Assessed Sex and Gender Information Value Date Recorded Sex Assigned at Not on file Legal Sex Male 1:12 PM CDT Gender Identity Not on file Sexual Orientation Not on file Plan of Treatment Health Maintenance Due Date Last Done Comments Hepatitis C Virus (HCV) Screening 1987 TdaP Immunization 1987 Hepatitis B Immunization (1 of 3 - 19+ 3-dose series) 2006 Influenza Immunization (#1) 2024 SARS-COV-2 Immunization ( season) 2024 03/09/2021 Respiratory Syncytial Virus (RSV) Immunization (Adult) (1 - 1-dose 75+ series) 2062 Meningococcal Immunization (ACWY) Aged Out No longer eligible based on patient's age to complete this topic Pneumococcal Immunization Combined Aged Out No longer eligible based on patient's age to complete this topic Rotavirus Immunization Aged Out No lo nger eligible based on patient's age to complete this topic
[2024-12-27 08:37] VITALS: BP 126/92; PULSE 85; RESP 18; TEMP 36.8; O2SAT 100
--- OUTSIDE RECORDS SUMMARY | 2024-12-27 09:50 | XMS_ITS | Clinical Summary ---
Author Organization [facility] Address [address] [place] [phone] Care Team Providers Care Radio Operator Ground Name Role Phone Unavailable Primary Care Provider Unavailabl e Immunizations Immunization Administration Dates Next Due Covid-19 Vaccine, Vector-nr, Rs-ad26, Pf, 0.5 Ml ([employer]) 03/09/2021 Social History Tobacco Use Types Packs/Day [...]
--- OUTSIDE RECORDS SUMMARY | 2024-12-27 09:50 | XMS_ITS | Referral Summary ---
Author Organization [facility] Address [address] [place] [phone] Care Team Providers Care Auto Parts Manager Name Role Phone Gordon Padilla MD Primary [...] on file Insurance [employer] Care Teams Auto Parts Manager Relationship Specialty Start Date End Date Gordon Padilla MD [address] [place] [address] PCP - General Family Medicine 11/13/23
--- OUTSIDE RECORDS SUMMARY | 2024-12-27 09:50 | XMS_ITS | Clinical Summary ---
Author Organization [facility] Address [address] [place] [address] Care Team Providers Care Machine Molder Name Role Phone Gordon Padilla MD Primary [...] to complete this topic Insurance [facility] [place] Care Teams Machine Molder Relationship Specialty Start Date End Date Gordon Padilla MD [address] [place] [address] PCP - General Family Medicine 11/13/23
[2024-12-27] MEDS: TETANUS,DIPHTHERIA,AC PERTUSSIS ADULT (0.5 ML) BOOSTRIX IM (10:36)
--- NOTE | 2024-12-27 11:39 | ED_ITS ---
HPI - General Adult General Chief complaint: Wound/Laceration Stated complaint: wound lac Time Seen by Provider: 12/27/24 08:23 History of Present Illness HPI narrative: 39-year-old female presents to the emergency department for evaluation for laceration to her lip. Patient had a slipped on a wet floor and struck her face. Patient denies any loss consciousness. Patient did have a laceration to her lower lip. Related Data Allergies Allergy/AdvReac Type Severity Reaction Status Date / Time Penicillins Allergy Severe swelling Verified 12/27/24 08:38 clindamycin Allergy Intermediate Swelling Verified 12/27/24 08:38 cefaclor Allergy Unknown Swelling Verified 12/27/24 08:38 cephalexin Allergy Unknown UNKNOWN Verified 12/27/24 08:38 tramadol AdvReac Severe Mirgraines Verified 12/27/24 08:38 Review of Systems Review of Systems: All systems reviewed & are unremarkable except as noted in HPI and below PMFSH Past Medical History Medical History (Updated 12/27/24 @ 11:42 by Ferdinand Edge MD) Alcohol related seizure Cocaine use Alcohol abuse Chronic anemia Cocaine use ROSEANN II (cervical intraepithelial neoplasia II) History of x2 Anxiety Vaginal delivery x 2 Surgical History Surgical History History of loop electrical excision procedure (LEEP) (10/2020) Family History Family History Sibling Alcoholism Social History Social History Social History: She lives at home with her boyfriend and 2 daughters. Her da ughters are 13 and 16 years of age. 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 She has smoked half pack of cigarettes since she was 16. She occasionally will snort cocaine. Her boyfriend has a history of drug abuse. She denies any IV drug use. She drinks between a pint to a 5th of alcohol a day. Code status: Full code Surrogate decision maker: Mother Smoking packs per day: 0.5 Smoking cigarettes per day: 10.0 Years smoked: 20 Smoking pack-years: 10.00 Smoking status: Current every day smoker Second hand tobacco smoke exposure: No Alcohol intake: current Drinks per week: 4 Substance use: current Substance use type: does not use Other substance usage details: 1 pint to 1 fifth of vodka daily. Last use: Cocaine 11/02/21 Do You Feel Safe in your Home?: Yes Lack of Transportation: No Lack of Food: Never True Current Housing: I Have Housing Concerned About Future Housing: No Difficulty Paying Gas/Electric Bills: No Difficulty Paying for Meds: No Currently Unemployed: No Education: Associate Degree Difficulty w/ Childcare or Family Care: No Living arrangements: with family Occupation/Education: occupation Spiritual care concerns: No Agree to blood products: Yes Exam Narrative: APPEARANCE: Well appearing, no pain, no distress, well-nourished. HEAD: normocephalic, atraumatic. EYES: PERRLA/EOMI, conjunctivae clear. NOSE: Normal no drainage EARS:TMS clear with good light reflex. THROAT: Pharynx clear, no exudate. NECK: Supple. No adenopathy, no masses. RESPIRATORY: Airway patent, respirations nonlabored. Clear to auscultation bilaterally, no rales, rhonchi, wheezing. CARDIOVASCULAR: Regular rate and rhythm without murmurs rubs or gallops. ABDOMINAL: Soft, nontender, nondistended, normal bowel sounds MUSCULOSKELETAL: Moves all extremities. Strength/ROM intact, No edema, No calf tenderness. NEURO: Alert. Cranial nerves II through XII intact. Good gait. Good coordination SKIN: Laceration of lower lip Course Vital Signs Vital signs: Vital Signs Temperature 98.3 F 12/27/24 08:37 Pulse Rate 85 12/27/24 08:37 Respiratory Rate 18 12/27/24 08:37 Blood Pressure 126/92 H 12/27/24 08:37 Pulse Oximetry 100 12/27/24 08:37 Temperature 98.3 F 12/27/24 08:37 Pulse Rate 85 12/27/24 08:37 Respiratory Rate 18 12/27/24 08:37 Blood Pressure 126/92 H 12/27/24 08:37 Pulse Oximetry 100 12/27/24 08:37 Procedures Laceration Laceration 1: Time: 11:40 Site: face Size (cm): 3 Description: stellate and irregular Depth: simple, single layer Local Anesthetic: lidocaine 1% Amount of anesthesia used (mL): 2 Pre-repair: wound explored ====== Skin Level ====== Skin layer closed with: prolene Size (cm): 6-0 Number of sutures: 6 Technique: simple, interrupted ====== Subcutaneous Layer ====== ====== Muscle Layer ====== ====== Tendon Layer ====== Medical Decision Making MDM Narrative Medical decision making narrative: 39-year-old female present to the emergency department for laceration to her lower lip. Laceration was repaired as described in the procedure note. Patient was started on antibiotics emergency department. Patient's tetanus was updated. Patient had no loss consciousness, no cervical spine tenderness to palpation, normal range of motion of her cervical spine and no mandibular or facial tenderness to palpation. Patient denies any other pain or injury. Patient was updated on the results of her laceration repair and importance of close follow- up Differential Diagnosis Differential Diagnosis: Subdural hematoma, subarachnoid hemorrhage, cervical spine fracture, facial fracture, facial laceration, tongue laceration Vital Signs Vital Signs: Vital Signs Temperature 98.3 F 12/27/24 08:37 Pulse Rate 85 12/27/24 08:37 Respiratory Rate 18 12/27/24 08:37 Blood Pressure 126/92 H 12/27/24 08:37 Pulse Oximetry 100 12/27/24 08:37 Temperature 98.3 F 12/27/24 08:37 Pulse Rate 85 12/27/24 08:37 Respiratory Rate 18 12/27/24 08:37 Blood Pressure 126/92 H 12/27/24 08:37 Pulse Oximetry 100 12/27/24 08:37 Discharge Plan Discharge Clinical Impression: Complex laceration of face Patient Disposition: Home Condition: Stable Instructions: Antibiotic Form, Laceration (ED), Facial Laceration (ED) Additional Instructions: Antibiotics as directed for the next 5 days. Sutures will need to be removed in the next 5-7 days. Have close follow-up with your primary care physician. Patient Language: Khmer Prescriptions: New amoxicillin-pot clavulanate 875-125 mg tablet 1 tablet PO Q12H 5 Days Qty: 10 0RF No Action buspirone 15 mg tablet 15 mg PO BID Qty: 180 1RF Follow-up/Referrals: Gordon Padilla MD [Primary Care Provider] -
--- NOTE | 2024-12-27 12:03 | PC.NURSE ---
Discussed in detail allergic reaction to penicillins, discussed to take benadryl and pepcid to seek additional medical treatment if airway compromise starts to occur.
== END 2024-12-27 12:06 | disposition home or self-care (01) ==
PROVIDERS: Emergency Provider Emergency Medicine; PCP Family Medicine Adolescent Medicine
DX: S01.511A Laceration without foreign body of lip, initial encounter (principal); W01.0XXA Fall on same level from slipping, tripping and stumbling without subsequent striking against object, initial encounter; F17.210 Nicotine dependence, cigarettes, uncomplicated; Z23 Encounter for immunization
CPT/HCPCS: 12013; 90471; 90715; 99283; A9270